=== PATIENT | female | born 1930 | race Caucasian/White ===

== ENCOUNTER 2017-08-16 12:58 | Inpatient (IN) | payer MEDICARE ==
[2017-08-16] MEDS ORDERED: Pantoprazole 40 mg EC Tab PO STA (15:13)
[2017-08-16 15:22] LABS: EOSINOPHILE ABSOLUTE 0.1 Th/cmm (0.1-0.4); HEMATOCRIT 43.2 % (41.0-60); HEMOGLOBIN 14.2 gm/dL (12-16); LYMPHOCYTE ABSOLUTE 0.4 Th/cmm (1.5-3.0); MEAN CELL VOLUME 89.6 fl (81-100); MEAN CORPUSCULAR HEMOGLOBIN 29.4 pg (27.0-31.0); MEAN CORPUSCULAR HGB CONC 32.8 pg (28.0-36.0); MEAN PLATELET VOLUME 7.9 fl; MONOCYTE ABSOLUTE 3.5 Th/cmm (0.3-1.0); NEUTROPHILE ABSOLUTE 1.7 Th/cmm (1.8-8.0); PLATELET COUNT 358 Th/cmm (150-400); RED BLOOD COUNT 4.82 Mil/cmm (3.80-5.20); RED CELL DISTRIBUTION WIDTH 14.1 % (11.5-20.0); WHITE BLOOD COUNT 5.7 Th/cmm (4.8-10.8)
[2017-08-16] MEDS ORDERED: Pantoprazole 40 mg EC Tab PO ONE (15:30)
[2017-08-16 15:59] LABS: ALB/GLOB RATIO 1.4 (1.0-1.8); ALBUMIN 4.1 gm/dL (3.7-5.3); ALKALINE PHOSPHATASE 126 U/L (34-104); ANION GAP 11.5 (7.0-16.0); BILIRUBIN,TOTAL 0.4 mg/dL (0.3-1.0); BUN - UREA NITROGEN 21 mg/dL (7-25); CALCIUM SERUM 9.4 mg/dL (8.6-10.3); CARBON DIOXIDE 27.2 mEq/L (21.0-31.0); CHLORIDE 106 mEq/L (98-107); CREATININE - SERUM 0.6 mg/dL (0.6-1.2); GLUCOSE 102 mg/dL (70-105); POTASSIUM SERUM 4.7 mEq/L (3.5-5.1); SGOT 23 U/L (13-39); SGPT/ALT 14 U/L (7-52); SODIUM SERUM 140 mEq/L (136-145)
[2017-08-16 19:45] LABS: BAND NEUTROPHILE 0 % (0-10); BASOPHIL 0 % (0-3); EOSINOPHIL 0 % (0-5); LYMPHOCYTE 32 % (20-50); MONOCYTE 5 % (2-10); NEUTROPHILS 63 % (40-80); TOTAL CELLS COUNTED 100
[2017-08-16 19:46] LABS: PLATELET ESTIMATE ADEQUATE (NORMAL); PLATELET MORPHOLOGY NORMAL (NORMAL)
[2017-08-17 03:47] VITALS: BP 142/76
[2017-08-17] MEDS: NYSTATIN 100000 UNITS/GM POWD TP SCH ×2 (13:20→21:18)
[2017-08-17] MEDS: Hydrocodone/APAP 5mg/325mg Tab PO PRN (15:01)
--- NOTE | 2017-08-17 16:48 | General Progress Note ---
Subjective - Review of Systems Service Date: 08/17/17 Events since last encounter: patient seen in ER llast night son in to visit patient Discussed with Dr. Collier - desirable to do colonoscopy prior to making surgical recommendation Objective - Results Result Diagrams: 08/16/17 15:17 08/16/17 15:17 Recent Labs: Laboratory Last Values WBC 5.7 Th/cmm (4.8-10.8) 08/16/17 15:17 RBC 4.82 Mil/cmm (3.80-5.20) 08/16/17 15:17 Hgb 14.2 gm/dL (12-16) 08/16/17 15:17 Hct 43.2 % (41.0-60) 08/16/17 15:17 MCV 89.6 fl (81-100) 08/16/17 15:17 MCH 29.4 pg (27.0-31.0) 08/16/17 15:17 MCHC Differential 32.8 pg (28.0-36.0) 08/16/17 15:17 RDW 14.1 % (11.5-20.0) 08/16/17 15:17 Plt Count 358 Th/cmm (150-400) 08/16/17 15:17 MPV 7.9 fl 08/16/17 15:17 Band Neutrophils % 0 % (0-10) 08/16/17 15:17 Neutrophils (Manual) 63 % (40-80) 08/16/17 15:17 Lymphocytes 32 % (20-50) 08/16/17 15:17 Monocytes 5 % (2-10) 08/16/17 15:17 Eosinophils 0 % (0-5) 08/16/17 15:17 Basophils 0 % (0-3) 08/16/17 15:17 Platelet Estimate ADEQUATE (NORMAL) 08/16/17 15:17 Platelet Morphology NORMAL (NORMAL) 08/16/17 15:17 RBC Morph Micro Appear NORMAL (NORMAL) 08/16/17 15:17 Sodium 140 mEq/L (136-145) 08/16/17 15:17 Potassium 4.7 mEq/L (3.5-5.1) 08/16/17 15:17 Chloride 106 mEq/L (98-107) 08/16/17 15:17 Carbon Dioxide 27.2 mEq/L (21.0-31.0) 08/16/17 15:17 Anion Gap 11.5 (7.0-16.0) 08/16/17 15:17 BUN 21 mg/dL (7-25) 08/16/17 15:17 Creatinine 0.6 mg/dL (0.6-1.2) 08/16/17 15:17 Est GFR ( Amer) TNP 08/16/17 15:17 Est GFR (Non-Af Amer) TNP 08/16/17 15:17 BUN/Creatinine Ratio 35.0 08/16/17 15:17 Glucose 102 mg/dL (70-105) 08/16/17 15:17 Calcium 9.4 mg/dL (8.6-10.3) 08/16/17 15:17 Total Bilirubin 0.4 mg/dL (0.3-1.0) 08/16/17 15:17 AST 23 U/L (13-39) 08/16/17 15:17 ALT 14 U/L (7-52) 08/16/17 15:17 Alkaline Phosphatase 126 U/L (34-104) H 08/16/17 15:17 Total Protein 7.0 gm/dL (6.0-8.3) 08/16/17 15:17 Albumin 4.1 gm/dL (3.7-5.3) 08/16/17 15:17 Globulin 2.9 gm/dL 08/16/17 15:17 Albumin/Globulin Ratio 1.4 (1.0-1.8) 08/16/17 15:17 - Physical Exam Vitals and I&O: Vital Signs Temp 97.9 F 08/17/17 16:00 Pulse 54 08/17/17 16:00 Resp 17 08/17/17 16:00 BP 154/73 08/17/17 16:00 Pulse Ox 95 08/17/17 16:00 Intake & Output 08/16/17 08/17/17 08/17/17 18:59 06:59 18:59 Weight (lbs) 46.04 kg Active Medications: Current Medications Acetaminophen/Hydrocodone Bitart ([place] 5mg/325mg) 1 tab PO Q6H PRN PRN Reason: Pain (Moderate) Stop: 10/16/17 13:29 Bisacodyl (Dulcolax 5 Mg Ec Tab) 15 mg PO X1 ONE Stop: 08/17/17 18:01 Docusate Sodium (Colace) 100 mg PO Q12HR [facility] Stop: 10/16/17 11:29 Last Admin: 08/17/17 11:43 Dose: 100 mg Dextrose/Sodium Chloride (D5-0.45ns) 1,000 mls @ 50 mls/hr IV .Q20H [facility] Stop: 10/15/17 18:14 Nystatin (Nystop) 100,000 units TP Q12HR [facility] Stop: 08/24/17 11:59 Last Admin: 08/17/17 13:20 Dose: 100,000 units Pneumococcal Polyvalent Vaccine (Pneumovax) 0.5 ml IM .ONCE ONE Stop: 08/19/17 09:01 Polyethylene Glycol/Electrolytes (Golytely) 4,000 ml PO X1 ONE Stop: 08/17/17 18:01
[2017-08-17] MEDS: D5-0.45NS 1,000 ML IV SCH (18:30)
--- NOTE | 2017-08-17 19:15 | History and Physical ---
History of Present Illness - HPI Chief Complaint: rectal pain/rectal prolapse HPI: This is a 87 year old male who presented to the ER with rectal pain x1 week. Denied any fever, diarrhea. Vital Signs: Last Vital Signs Temp 97.9 F 08/17/17 16:00 Pulse 54 08/17/17 16:00 Resp 17 08/17/17 16:00 BP 154/73 08/17/17 16:00 Pulse Ox 95 08/17/17 16:00 Past Medical History Cardiovascular: Report: No Pertinent Hx Pulmonary: Report: No Pertinent Hx [employer]: Report: No Pertinent Hx Renal/: Report: No Pertinent Hx Family Medical History - Family Member Mother History Unknown: Yes Social History Smoke: No Alcohol: None Drugs: None Lives: With Family - Medications Home Medications: Home Medication Medication Instructions Recorded Type NK [No Home Meds] 08/16/17 History - Allergies Allergies/Adverse Reactions: Allergies Allergy/AdvReac Type Severity Reaction Status Date / Time No Known Allergies Allergy Verified 08/16/17 17:38 Review of Systems - Review of Systems Constitutional: Report: No Significant Eyes: Report: No Significant ENT: Report: No Significant Respiratory: Report: No Significant Cardiovascular: Report: No Significant Gastrointestinal: Report: Other (rectal pain) Neurological: Report: Weakness Physical Exam - Physical Exam HEENT: Report: Ears Nose Throat within normal limits Neck: Report: Within normal limits Cardiovascular Systems: Report: +s1/s2 noted Respiratory: Report: Breath Sounds are within normal limits Abdomen: Report: Non-tender to palpation Back: Report: Inspection of back is within normal limits. Extremities: Report: Non-tender to palpation. Skin: Report: Warm, Dry Neuro/Psych: Report: Mood affect is within normal limits - Assessment Assessment: rectal pain rectal prolapse - Plan Plan: gi consultation surgical consultation pain mgmt continue current orders
--- NOTE | 2017-08-18 00:52 | Consultation ---
DATE OF CONSULTATION: 08/17/2017 CONSULTING PHYSICIAN: Zen Patino MD REASON FOR CONSULTATION: Rectal prolapse. HISTORY OF PRESENT ILLNESS: The patient is an 87-year-old female who reports no chronic medical illnesses who was admitted to the hospital after suffering intermittent rectal prolapse for the past 9 months. The patient notes that she first noticed that she had rectal prolapse about 9 months ago, but that for most of the previous 9 months her rectal prolapse was not painful and spontaneously resolved. She noted that her rectum would be coming out mostly with straining for having bowel movements. However, over the past several months she noted that she started to have increasing pain in her perianal area and that the rectal prolapse was becoming harder to spontaneously resolve. She was advised by family members to come into the Emergency Room for this yesterday and thus was seen in the ER by Dr. Valencia who reduced the prolapse at that time. GI is now asked for evaluation. Of note, the patient has had recent hip surgery last year on the right side and reports that she had her left hips replaced as well more remotely. PAST MEDICAL HISTORY: The patient denies any chronic illnesses and that she does not take any chronic medications. PAST SURGICAL HISTORY: The patient has had recent hip replacement. She also reports a small-bowel obstruction with surgical repair about 12 years ago and a remote appendectomy. FAMILY HISTORY: Noncontributory. SOCIAL HISTORY: The patient drinks a glass of wine every night. She quit smoking at age 26. No other illicit drugs. ENDOSCOPIC HISTORY: The patient reports that she thinks she had a colonoscopy previously, estimates that this was 3-4 years ago, but cannot remember specifically at this time. REVIEW OF SYSTEMS: A 12-point review of systems was performed and is negative other than the pertinent positives mentioned in the history of present illness. Specifically, the patient denies any melena, hematochezia or hematemesis. CURRENT MEDICATIONS: Include Colace, nystatin cream around the perianal area and Pneumovax vaccine. PHYSICAL EXAMINATION: VITAL SIGNS: The blood pressure is 182/72, pulse of 52 beats per minute, temperature 98.2, respiratory rate 17 and oxygenation is 100% on room air. GENERAL: The patient is sitting upright in bed. She is alert and oriented x 3, in no apparent distress. HEAD, EARS, EYES, NOSE AND THROAT: Normocephalic and atraumatic appearing head. No scleral icterus. Pupils are equal and reactive to light. Extraocular muscles are intact with moist mucous membranes. NECK: Supple, no JVD, no thyromegaly and no lymphadenopathy. CHEST: Clear to auscultation bilaterally. CARDIOVASCULAR: S1, S2 are present, regular rate and rhythm. ABDOMEN: Soft, nontender, thin, no guarding, no rebound and no distention. EXTREMITIES: Frail appearing. No edema. Pulses are present. PERIANAL: Exam shows erythema with a zinc barrier ointment applied. No prolapse at the moment. SKIN: No obvious jaundice or other rashes. LABORATORY DATA: White blood cell count 5.7, hemoglobin is 14.2 and platelet count is 358. Sodium 140, BUN 21, creatinine 0.6, AST 23, ALT 14, total bilirubin 0.4. There has been no imaging performed. IMPRESSION: This is an 87-year-old female who reports no chronic medical illnesses, although she has had small-bowel obstruction in the past who was admitted to the hospital with rectal prolapse and perianal pain. 1. Rectal prolapse. 2. Perianal pain and erythema. 3. History of small-bowel obstruction. DISCUSSION: The patient's rectal prolapse was reduced in the ER by Dr. Valencia although it is likely to recur without permanent surgical correction. This type of surgery must be performed by a surgeon and is not endoscopically repairable. The patient does report having a colonoscopy in the past and thinks this was in the past 5 years and that she is unlikely to have a malignancy in this area. The most common cause of rectal prolapse in a woman of this age is likely previous childbirth or previous surgery. She does not have any anemia at the current time or any sign of overt GI bleeding. Thus, I do not feel a colonoscopy would be beneficial unless it is required for surgical planning. RECOMMENDATION: 1. The son will hopefully be able to let us know when the patient had her last colonoscopy done; however, at her age screening colonoscopy is generally not recommended without any evidence of red flag system or GI bleeding. 2. If colonoscopy is requested by Dr. Valencia for surgical planning purposes then may consider this, although she does have a higher risk profile for anesthesia given her age. I will continue to follow the patient. Thank you for allowing me to participate in her care. Please call with any further questions. JOB# [id number]
[2017-08-18 07:03] LABS: INR 0.99 (0.5-1.4); PROTHROMBIN TIME (TEST) 10.3 SECONDS (9.5-11.5)
--- NOTE | 2017-08-18 08:15 | Diagnostic Imaging Report ---
Chest x-ray single view History: Preop Comparison: None The heart size is normal. No focal pulmonary parenchymal processes. No hilar or mediastinal abnormalities. Bilateral breast implants identified. The aortic arch calcified. Impression: No acute abnormalities, COPD changes.
[2017-08-18] MEDS: NYSTATIN 100000 UNITS/GM POWD TP SCH ×2 (09:09→22:00)
--- NOTE | 2017-08-18 09:55 | General Progress Note ---
Subjective - Review of Systems Events since last encounter: patient in no distress awake alert Objective - Results Result Diagrams: 08/16/17 15:17 08/16/17 15:17 Recent Labs: Laboratory Last Values WBC 5.7 Th/cmm (4.8-10.8) 08/16/17 15:17 RBC 4.82 Mil/cmm (3.80-5.20) 08/16/17 15:17 Hgb 14.2 gm/dL (12-16) 08/16/17 15:17 Hct 43.2 % (41.0-60) 08/16/17 15:17 MCV 89.6 fl (81-100) 08/16/17 15:17 MCH 29.4 pg (27.0-31.0) 08/16/17 15: MCHC Differential 32.8 pg (28.0-36.0) 08/16/17 15:17 RDW 14.1 % (11.5-20.0) 08/16/17 15:17 Plt Count 358 Th/cmm (150-400) 08/16/17 15:17 MPV 7.9 fl 08/16/17 15:17 Band Neutrophils % 0 % (0-10) 08/16/17 15:17 Neutrophils (Manual) 63 % (40-80) 08/16/17 15:17 Lymphocytes 32 % (20-50) 08/16/17 15:17 Monocytes 5 % (2-10) 08/16/17 15:17 Eosinophils 0 % (0-5) 08/16/17 15:17 Basophils 0 % (0-3) 08/16/17 15:17 Platelet Estimate ADEQUATE (NORMAL) 08/16/17 15:17 Platelet Morphology NORMAL (NORMAL) 08/16/17 15:17 RBC Morph Micro Appear NORMAL (NORMAL) 08/16/17 15:17 PT 10.3 SECONDS (9.5-11.5) 08/18/17 06:45 INR 0.99 (0.5-1.4) 08/18/17 06:45 PTT (Actin FS) 25.9 SECONDS (26.0-38.0) L 08/18/17 06:45 Sodium 140 mEq/L (136-145) 08/16/17 15:17 Potassium 4.7 mEq/L (3.5-5.1) 08/16/17 15:17 Chloride 106 mEq/L (98-107) 08/16/17 15:17 Carbon Dioxide 27.2 mEq/L (21.0-31.0) 08/16/17 15:17 Anion Gap 11.5 (7.0-16.0) 08/16/17 15:17 BUN 21 mg/dL (7-25) 08/16/17 15:17 Creatinine 0.6 mg/dL (0.6-1.2) 08/16/17 15:17 Est GFR ( Amer) TNP 08/16/17 15:17 Est GFR (Non-Af Amer) TNP 08/16/17 15:17 BUN/Creatinine Ratio 35.0 08/16/17 15:17 Glucose 102 mg/dL (70-105) 08/16/17 15:17 POC Glucose 89 MG/DL (70 - 105) 08/18/17 07:59 Calcium 9.4 mg/dL (8.6-10.3) 08/16/17 15:17 Total Bilirubin 0.4 mg/dL (0.3-1.0) 08/16/17 15:17 AST 23 U/L (13-39) 08/16/17 15:17 ALT 14 U/L (7-52) 08/16/17 15:17 Alkaline Phosphatase 126 U/L (34-104) H 08/16/17 15:17 Total Protein 7.0 gm/dL (6.0-8.3) 08/16/17 15:17 Albumin 4.1 gm/dL (3.7-5.3) 08/16/17 15:17 Globulin 2.9 gm/dL 08/16/17 15:17 Albumin/Globulin Ratio 1.4 (1.0-1.8) 08/16/17 15:17 - Physical Exam Vitals and I&O: Vital Signs Temp 97.0 F 08/18/17 08:12 Pulse 64 08/18/17 08:12 Resp 18 08/18/17 08:12 BP 165/65 08/18/17 08:12 Pulse Ox 100 08/18/17 08:12 Intake & Output 08/17/17 08/18/17 08/18/17 18:59 06:59 18:59 Intake Total 720 1000 Balance 720 1000 Weight (lbs) 46.04 kg 45.813 kg Intake: Oral 720 1000 Other: # Voids 10 6 # Bowel Movements 0 3 Active Medications: Current Medications Acetaminophen/Hydrocodone Bitart ([place] 5mg/325mg) 1 tab PO Q6H PRN PRN Reason: Pain (Moderate) Stop: 10/16/17 13:29 Docusate Sodium (Colace) 100 mg PO Q12HR [facility] Stop: 10/16/17 11:29 Last Admin: 08/18/17 09:08 Dose: Not Given Dextrose/Sodium Chloride (D5-0.45ns) 1,000 mls @ 50 mls/hr IV .Q20H [facility] Stop: 10/15/17 18:14 Last Admin: 08/17/17 18:30 Dose: 50 mls/hr Nystatin (Nystop) 100,000 units TP Q12HR [facility] Stop: 08/24/17 11:59 Last Admin: 08/18/17 09:09 Dose: Not Given Pneumococcal Polyvalent Vaccine (Pneumovax) 0.5 ml IM .ONCE ONE Stop: 08/19/17 09:01 Assessment/Plan - Assessment Assessment: rectal pain rectal prolapse - Plan Plan: gi consultation surgical consultation pain mgmt continue current orders
--- NOTE | 2017-08-18 10:02 | General Progress Note ---
Subjective - Review of Systems Service Date: 08/18/17 Events since last encounter: has redundant sigmoid with diverticulosis on sigmoidoscopy discussed options with son via phone Plan: surgery in AM with colon resection and diverting colostomy will need medical clearance Objective - Results Result Diagrams: 08/16/17 15:17 08/16/17 15:17 Recent Labs: Laboratory Last Values WBC 5.7 Th/cmm (4.8-10.8) 08/16/17 15:17 RBC 4.82 Mil/cmm (3.80-5.20) 08/16/17 15:17 Hgb 14.2 gm/dL (12-16) 08/16/17 15:17 Hct 43.2 % (41.0-60) 08/16/17 15:17 MCV 89.6 fl (81-100) 08/16/17 15:17 MCH 29.4 pg (27.0-31.0) 08/16/17 15:17 MCHC Differential 32.8 pg (28.0-36.0) 08/16/17 15:17 RDW 14.1 % (11.5-20.0) 08/16/17 15:17 Plt Count 358 Th/cmm (150-400) 08/16/17 15:17 MPV 7.9 fl 08/16/17 15:17 Band Neutrophils % 0 % (0-10) 08/16/17 15:17 Neutrophils (Manual) 63 % (40-80) 08/16/17 15:17 Lymphocytes 32 % (20-50) 08/16/17 15:17 Monocytes 5 % (2-10) 08/16/17 15:17 Eosinophils 0 % (0-5) 08/16/17 15:17 Basophils 0 % (0-3) 08/16/17 15:17 Platelet Estimate ADEQUATE (NORMAL) 08/16/17 15:17 Platelet Morphology NORMAL (NORMAL) 08/16/17 15:17 RBC Morph Micro Appear NORMAL (NORMAL) 08/16/17 15:17 PT 10.3 SECONDS (9.5-11.5) 08/18/17 06:45 INR 0.99 (0.5-1.4) 08/18/17 06:45 PTT (Actin FS) 25.9 SECONDS (26.0-38.0) L 08/18/17 06:45 Sodium 140 mEq/L (136-145) 08/16/17 15:17 Potassium 4.7 mEq/L (3.5-5.1) 08/16/17 15:17 Chloride 106 mEq/L (98-107) 08/16/17 15:17 Carbon Dioxide 27.2 mEq/L (21.0-31.0) 08/16/17 15:17 Anion Gap 11.5 (7.0-16.0) 08/16/17 15:17 BUN 21 mg/dL (7-25) 08/16/17 15:17 Creatinine 0.6 mg/dL (0.6-1.2) 08/16/17 15:17 Est GFR ( Amer) TNP 08/16/17 15:17 Est GFR (Non-Af Amer) TNP 08/16/17 15:17 BUN/Creatinine Ratio 35.0 08/16/17 15:17 Glucose 102 mg/dL (70-105) 08/16/17 15:17 POC Glucose 89 MG/DL (70 - 105) 08/18/17 07:59 Calcium 9.4 mg/dL (8.6-10.3) 08/16/17 15:17 Total Bilirubin 0.4 mg/dL (0.3-1.0) 08/16/17 15:17 AST 23 U/L (13-39) 08/16/17 15:17 ALT 14 U/L (7-52) 08/16/17 15:17 Alkaline Phosphatase 126 U/L (34-104) H 08/16/17 15:17 Total Protein 7.0 gm/dL (6.0-8.3) 08/16/17 15:17 Albumin 4.1 gm/dL (3.7-5.3) 08/16/17 15:17 Globulin 2.9 gm/dL 08/16/17 15:17 Albumin/Globulin Ratio 1.4 (1.0-1.8) 08/16/17 15:17 - Physical Exam Vitals and I&O: Vital Signs Temp 97.0 F 08/18/17 08:12 Pulse 64 08/18/17 08:12 Resp 18 08/18/17 08:12 BP 165/65 08/18/17 08:12 Pulse Ox 100 01/24/18 08:12 Intake & Output 08/17/17 08/18/17 08/18/17 18:59 06:59 18:59 Intake Total 720 1000 Balance 720 1000 Weight (lbs) 46.04 kg 45.813 kg Intake: Oral 720 1000 Other: # Voids 10 6 # Bowel Movements 0 3 Active Medications: Current Medications Acetaminophen/Hydrocodone Bitart ([place] 5mg/325mg) 1 tab PO Q6H PRN PRN Reason: Pain (Moderate) Stop: 10/16/17 13:29 Docusate Sodium (Colace) 100 mg PO Q12HR [facility] Stop: 10/16/17 11:29 Last Admin: 08/18/17 09:08 Dose: Not Given Dextrose/Sodium Chloride (D5-0.45ns) 1,000 mls @ 50 mls/hr IV .Q20H [facility] Stop: 10/15/17 18:14 Last Admin: 08/17/17 18:30 Dose: 50 mls/hr Nystatin (Nystop) 100,000 units TP Q12HR [facility] Stop: 08/24/17 11:59 Last Admin: 08/18/17 09:09 Dose: Not Given Pneumococcal Polyvalent Vaccine (Pneumovax) 0.5 ml IM .ONCE ONE Stop: 08/19/17 09:01
--- NOTE | 2017-08-18 10:55 | Consultation ---
DATE OF CONSULTATION: 08/17/2017 REFERRING PHYSICIAN: Dr. Patino. REASON FOR CONSULTATION: Rectal prolapse. Thank you for referring this patient to me. HISTORY OF PRESENT ILLNESS: An 87-year-old female who lives alone at home. She admits to having had rectal prolapse that she could not push in for most of the month. The son informs us she has pain with this. The prolapse has been recurrent for the last 9 months. She has no previous history of diverticulitis. She denies any urinary symptoms, likewise. The laboratory studies show CBC to be normal as well as the chemistry. PHYSICAL EXAMINATION: GENERAL: On exam in the Emergency Room, the patient is alert and awake. The ER physician had reduced the prolapse by the time I examined her and there is some cellulitis in the perineum and the upper thighs as a result of the chronic prolapse. GI evaluation is in progress. I have talked extensively to the son about the possible treatment of this condition. Colonoscopy will be done and if there is additional problems this will be addressed. Concern is for redundant colon and the patient with constipation and incontinence. [place] treatment would be rather radical which would include resection of areas of diverticulosis and areas of redundancy to pull up the rectosigmoid and anchor it to the sacral fascia and do a diverting colostomy. The family will discuss this with the patient and will go on from there. [facility]# [id number]
--- NOTE | 2017-08-18 11:17 | Operative Report ---
DATE OF SURGERY: 08/18/2017 INPATIENT COLONOSCOPY REPORT PROCEDURE PERFORMED: Colonoscopy with biopsy. ENDOSCOPIST: Marv Collier M.D. PREOPERATIVE DIAGNOSIS: Rectal prolapse. POSTOPERATIVE DIAGNOSES: Colonic polyps, diverticulosis and rectal prolapse. INDICATION: The patient is an 87-year-old female who reports she has had issues with intermittent rectal prolapse over the past 9 months and has been getting progressively worse. She notes that she thinks she has had a colonoscopy before, but thinks it may have been 5 or 6 years ago and cannot remember if she has ever had polyps before. She is thinking of having rectal prolapse repair with Dr. Valencia but a colonoscopy is requested for surgical planning purposes. CONSENT: Informed consent was obtained from the patient. The risks and benefits of the procedure were discussed and include but are not limited to infection, bleeding, perforation, need for surgery, cardiopulmonary complications, missed pathology and . The patient indicates understanding of these risks and wished to go forward the procedure and signed the consent form. ANESTHESIA: This procedure was performed under the care of general anesthesia under the care of anesthesiologist. PROCEDURE IN DETAIL: After the initiation of general anesthesia the patient was placed in the left lateral decubitus position. A rectal exam was performed and it was notable for prolapsed rectum that was prolapsed about 4 cm at this time. The rectum was reducible and there was no evidence of any bleeding. Next, a well lubricated colonoscope was introduced into the rectum and guided under direct visualization to the level of the cecum, which was confirmed by the presence of the appendiceal orifice and IC valve, which were photographed. The scope was then slowly and carefully withdrawn, making sure to examine the entire colonic mucosa carefully and systematically. Retroflexion was not able to be performed given the prolapse. FINDINGS: 1. The [place] bowel prep score was 2 in all segments of the colon, there were some segments of the colon, especially in the flexures that were obscured by solid stool. 2. Cecal polyps were found measuring 2-5 mm in size and removed with cold biopsy forceps using excisional biopsy technique. In the transverse colon, an additional 3 mm polyp was found and removed with excisional biopsy. In the rectum, there were 2 polyps that were found that were measured 3-5 mm in size and removed with excisional biopsy. Additionally, there was mild to moderate diverticulosis throughout the colon, although mostly concentrated in the sigmoid and descending areas nonbleeding at this time. The colon was mildly redundant, although the scope was able to be completed without much looping. IMPRESSION: 1. Rectal prolapse. 2. Colonic polyp, status post removal. 3. Diverticulosis, mild mostly in the sigmoid and descending colon. RECOMMENDATION: 1. The patient will consider and proceed to rectal prolapse repair with Dr. Valencia if desired. 2. Do not recommend further screening colonoscopy given the patient's age. Thank you for allowing me to participate in this patient's care. I will continue to follow. Please call with any further questions. JOB# [id number]
[2017-08-18] MEDS: D5-0.45NS 1,000 ML IV SCH (19:23)
[2017-08-19 05:53] LABS: % BASOPHILS 1.9 % (0.0-2.0); % EOSINOPHILS 3.4 % (0.0-5.0); % LYMPHOCYTES 27.1 % (20.0-50.0); % MONOCYTES 7.3 % (2.0-10.0); % NEUTROPHILS 60.3 % (40.0-80.0); BASOPHILE ABSOLUTE 0.1 Th/cumm (0-0.2); EOSINOPHILE ABSOLUTE 0.2 Th/cmm (0.1-0.4); HEMATOCRIT 39.9 % (41.0-60); HEMOGLOBIN 13.2 gm/dL (12-16); LYMPHOCYTE ABSOLUTE 1.5 Th/cmm (1.5-3.0); MEAN CELL VOLUME 89.2 fl (81-100); MEAN CORPUSCULAR HEMOGLOBIN 29.6 pg (27.0-31.0); MEAN CORPUSCULAR HGB CONC 33.2 pg (28.0-36.0); MEAN PLATELET VOLUME 8.2 fl; MONOCYTE ABSOLUTE 0.4 Th/cmm (0.3-1.0); NEUTROPHILE ABSOLUTE 3.4 Th/cmm (1.8-8.0); RED BLOOD COUNT 4.47 Mil/cmm (3.80-5.20); WHITE BLOOD COUNT 5.6 Th/cmm (4.8-10.8)
[2017-08-19 05:54] LABS: PLATELET COUNT 266 Th/cmm (150-400)
[2017-08-19 06:12] LABS: INR 1.02 (0.5-1.4); PROTHROMBIN TIME (TEST) 10.6 SECONDS (9.5-11.5)
[2017-08-19 06:15] LABS: ALB/GLOB RATIO 1.3 (1.0-1.8); ALBUMIN 3.3 gm/dL (3.7-5.3); ALKALINE PHOSPHATASE 98 U/L (34-104); ANION GAP 5.6 (7.0-16.0); BILIRUBIN,TOTAL 0.5 mg/dL (0.3-1.0); BUN - UREA NITROGEN 13 mg/dL (7-25); CALCIUM SERUM 8.7 mg/dL (8.6-10.3); CARBON DIOXIDE 30.5 mEq/L (21.0-31.0); CHLORIDE 103 mEq/L (98-107); CREATININE - SERUM 0.6 mg/dL (0.6-1.2); GLUCOSE 98 mg/dL (70-105); POTASSIUM SERUM 4.1 mEq/L (3.5-5.1); SGOT 18 U/L (13-39); SGPT/ALT 12 U/L (7-52); SODIUM SERUM 135 mEq/L (136-145); TOTAL PROTEIN,SERUM 5.9 gm/dL (6.0-8.3)
[2017-08-19] MEDS: Levofloxacin 250 mg/50 mL Premix Bag IV SCH (08:12)
[2017-08-19] MEDS: NYSTATIN 100000 UNITS/GM POWD TP SCH ×2 (08:14→22:11)
--- NOTE | 2017-08-19 08:27 | GI Progress Note ---
Subjective - Review of Systems Service Date: 08/19/17 Subjective: No events overnight, feels well Objective - Results Result Diagrams: 08/19/17 05:37 08/19/17 05:37 Recent Labs: Laboratory Last Values WBC 5.6 Th/cmm (4.8-10.8) 08/19/17 05:37 RBC 4.47 Mil/cmm (3.80-5.20) 08/19/17 05:37 Hgb 13.2 gm/dL (12-16) 08/19/17 05:37 Hct 39.9 % (41.0-60) L 08/19/17 05:37 MCV 89.2 fl (81-100) 08/19/17 05:37 MCH 29.6 pg (27.0-31.0) 08/19/17 05:37 MCHC Differential 33.2 pg (28.0-36.0) 08/19/17 05:37 RDW 14.0 % (11.5-20.0) 08/19/17 05:37 Plt Count 266 Th/cmm (150-400) D 08/19/17 05:37 MPV 8.2 fl 08/19/17 05:37 Neutrophils % 60.3 % (40.0-80.0) 08/19/17 05:37 Band Neutrophils % 0 % (0-10) 08/16/17 15:17 Lymphocytes % 27.1 % (20.0-50.0) 08/19/17 05:37 Monocytes % 7.3 % (2.0-10.0) 08/19/17 05:37 Eosinophils % 3.4 % (0.0-5.0) 08/19/17 05:37 Basophils % 1.9 % (0.0-2.0) 08/19/17 05:37 Neutrophils (Manual) 63 % (40-80) 08/16/17 15:17 Lymphocytes 32 % (20-50) 08/16/17 15:17 Monocytes 5 % (2-10) 08/16/17 15:17 Eosinophils 0 % (0-5) 08/16/17 15:17 Basophils 0 % (0-3) 08/16/17 15:17 Platelet Estimate ADEQUATE (NORMAL) 08/16/17 15:17 Platelet Morphology NORMAL (NORMAL) 08/16/17 15:17 RBC Morph Micro Appear NORMAL (NORMAL) 08/16/17 15:17 PT 10.6 SECONDS (9.5-11.5) 08/19/17 05:37 INR 1.02 (0.5-1.4) 08/19/17 05:37 PTT (Actin FS) 25.9 SECONDS (26.0-38.0) L 08/19/17 05:37 Sodium 135 mEq/L (136-145) L 08/19/17 05:37 Potassium 4.1 mEq/L (3.5-5.1) 08/19/17 05:37 Chloride 103 mEq/L (98-107) 08/19/17 05:37 Carbon Dioxide 30.5 mEq/L (21.0-31.0) 08/19/17 05:37 Anion Gap 5.6 (7.0-16.0) L 08/19/17 05:37 BUN 13 mg/dL (7-25) 08/19/17 05:37 Creatinine 0.6 mg/dL (0.6-1.2) 08/19/17 05:37 Est GFR ( Amer) TNP 08/19/17 05:37 Est GFR (Non-Af Amer) TNP 08/19/17 05:37 BUN/Creatinine Ratio 21.7 08/19/17 05:37 Glucose 98 mg/dL (70-105) 08/19/17 05:37 POC Glucose 89 MG/DL (70 - 105) 08/18/17 07:59 Calcium 8.7 mg/dL (8.6-10.3) 08/19/17 05:37 Total Bilirubin 0.5 mg/dL (0.3-1.0) 08/19/17 05:37 AST 18 U/L (13-39) 08/19/17 05:37 ALT 12 U/L (7-52) 08/19/17 05:37 Alkaline Phosphatase 98 U/L (34-104) 08/19/17 05:37 Total Protein 5.9 gm/dL (6.0-8.3) L 08/19/17 05:37 Albumin 3.3 gm/dL (3.7-5.3) L 08/19/17 05:37 Globulin 2.6 gm/dL 08/19/17 05:37 Albumin/Globulin Ratio 1.3 (1.0-1.8) 08/19/17 05:37 - Physical Exam Vitals and I&O: Vital Signs Temp 96.8 F 08/19/17 03:45 Pulse 48 08/19/17 03:45 Resp 17 08/19/17 03:45 BP 132/67 08/19/17 03:45 Pulse Ox 96 08/19/17 03:45 Intake & Output 08/18/17 08/19/17 08/19/17 18:59 06:59 18:59 Intake Total 1999 Balance 1999 Weight (lbs) 45.813 kg 45.813 kg Intake: Intake, IV Amount 1000 D5-0.45NS 1,000 ml @ 50 1000 mls/hr IV .Q20H [facility] Rx#: [id number] Oral 1000 Other: # Voids 7 # Bowel Movements 1 Stool Characteristics Liquid Active Medications: Current Medications Acetaminophen/Hydrocodone Bitart ([place] 5mg/325mg) 1 tab PO Q6H PRN PRN Reason: Pain (Moderate) Stop: 10/16/17 13:29 Docusate Sodium (Colace) 100 mg PO Q12HR [facility] Stop: 10/16/17 11:29 Last Admin: 08/19/17 08:18 Dose: Not Given Dextrose/Sodium Chloride (D5-0.45ns) 1,000 mls @ 50 mls/hr IV .Q20H [facility] Stop: 10/15/17 18:14 Last Admin: 08/18/17 19:23 Dose: 50 mls/hr Levofloxacin (Levaquin Pb) 250 mg in 50 mls @ 50 mls/hr IV Q24HR [facility] Stop: 10/18/17 08:59 Last Admin: 08/19/17 08:12 Dose: 50 mls/hr Neomycin Sulfate (Neomycin) 500 mg PO Q6H [facility] Stop: 10/17/17 16:59 Last Admin: 08/19/17 05:20 Dose: Not Given Nystatin (Nystop) 100,000 units TP Q12HR [facility] Stop: 08/24/17 11:59 Last Admin: 08/19/17 08:14 Dose: 100,000 units Pneumococcal Polyvalent Vaccine (Pneumovax) 0.5 ml IM .ONCE ONE Stop: 08/19/17 09:01 General: Alert, Oriented x3 HEENT: Atraumatic, PERRLA Neck: Supple Cardiovascular: Regular rate Abdomen: Bowel sounds, Soft, Other (no guard, no rebound, no distension. Rectal prolapse noted) - Procedures Procedures: Procedures Procedure Code Date COLONOSCOPY AND BIOPSY 45556 08/16/17 EXCISION OF CECUM, ENDO, DIAGN [id number] 08/16/17 EXCISION OF RECTUM, ENDO, DIAGN [id number] 08/16/17 EXCISION OF TRANSVERSE COLON, ENDO, DIAGN [id number] 08/16/17 Assessment/Plan - Assessment Assessment: # Rectal prolapse # Colon polyps # Perianal Skin breakdown Colonoscopy on 08/18 showed small colonic polyps, which were removed. Rectal prolapse was observed, reducible. Mild diverticulosis also noted Recommendations: - proceed with prolapse repair with Dr Valencia - do not recommend further screening colonoscopy given her age - skin care with zinc based cream and anti fungal GI to see as needed, please call with any questions
[2017-08-19] MEDS ORDERED: Pneumococcal Vaccine 0.5 mL Vial IM ONE (09:00)
[2017-08-19] MEDS ORDERED: Levofloxacin 500mg/100mL 500 MG/100 ML BAG IV SCH (09:00)
--- NOTE | 2017-08-19 09:14 | General Progress Note ---
Subjective - Review of Systems Events since last encounter: patient awake in no distress doing ok Objective - Results Result Diagrams: 08/19/17 05:37 08/19/17 05:37 Recent Labs: Laboratory Last Values WBC 5.6 Th/cmm (4.8-10.8) 08/19/17 05:37 RBC 4.47 Mil/cmm (3.80-5.20) 08/19/17 05:37 Hgb 13.2 gm/dL (12-16) 08/19/17 05:37 Hct 39.9 % (41.0-60) L 08/19/17 05:37 MCV 89.2 fl (81-100) 08/19/17 05:37 MCH 29.6 pg (27.0-31.0) 08/19/17 05:37 MCHC Differential 33.2 pg (28.0-36.0) 08/19/17 05:37 RDW 14.0 % (11.5-20.0) 08/19/17 05:37 Plt Count 266 Th/cmm (150-400) D 08/19/17 05:37 MPV 8.2 fl 08/19/17 05:37 Neutrophils % 60.3 % (40.0-80.0) 08/19/17 05:37 Band Neutrophils % 0 % (0-10) 08/16/17 15: Lymphocytes % 27.1 % (20.0-50.0) 08/19/17 05:37 Monocytes % 7.3 % (2.0-10.0) 08/19/17 05:37 Eosinophils % 3.4 % (0.0-5.0) 08/19/17 05:37 Basophils % 1.9 % (0.0-2.0) 08/19/17 05:37 Neutrophils (Manual) 63 % (40-80) 08/16/17 15:17 Lymphocytes 32 % (20-50) 08/16/17 15:17 Monocytes 5 % (2-10) 08/16/17 15:17 Eosinophils 0 % (0-5) 08/16/17 15:17 Basophils 0 % (0-3) 08/16/17 15:17 Platelet Estimate ADEQUATE (NORMAL) 08/16/17 15:17 Platelet Morphology NORMAL (NORMAL) 08/16/17 15:17 RBC Morph Micro Appear NORMAL (NORMAL) 08/16/17 15:17 PT 10.6 SECONDS (9.5-11.5) 08/19/17 05:37 INR 1.02 (0.5-1.4) 08/19/17 05:37 PTT (Actin FS) 25.9 SECONDS (26.0-38.0) L 08/19/17 05:37 Sodium 135 mEq/L (136-145) L 08/19/17 05:37 Potassium 4.1 mEq/L (3.5-5.1) 08/19/17 05:37 Chloride 103 mEq/L (98-107) 08/19/17 05:37 Carbon Dioxide 30.5 mEq/L (21.0-31.0) 08/19/17 05:37 Anion Gap 5.6 (7.0-16.0) L 08/19/17 05:37 BUN 13 mg/dL (7-25) 08/19/17 05:37 Creatinine 0.6 mg/dL (0.6-1.2) 08/19/17 05:37 Est GFR ( Amer) TNP 08/19/17 05:37 Est GFR (Non-Af Amer) TNP 08/19/17 05:37 BUN/Creatinine Ratio 21.7 08/19/17 05:37 Glucose 98 mg/dL (70-105) 08/19/17 05:37 POC Glucose 89 MG/DL (70 - 105) 08/18/17 07:59 Calcium 8.7 mg/dL (8.6-10.3) 08/19/17 05:37 Total Bilirubin 0.5 mg/dL (0.3-1.0) 08/19/17 05:37 AST 18 U/L (13-39) 08/19/17 05:37 ALT 12 U/L (7-52) 08/19/17 05:37 Alkaline Phosphatase 98 U/L (34-104) 08/19/17 05:37 Total Protein 5.9 gm/dL (6.0-8.3) L 08/19/17 05:37 Albumin 3.3 gm/dL (3.7-5.3) L 08/19/17 05:37 Globulin 2.6 gm/dL 08/19/17 05:37 Albumin/Globulin Ratio 1.3 (1.0-1.8) 08/19/17 05:37 - Physical Exam Vitals and I&O: Vital Signs Temp 98.4 F 08/19/17 08:00 Pulse 52 08/19/17 08:00 Resp 18 08/19/17 08:00 BP 144/57 08/19/17 08:00 Pulse Ox 95 08/19/17 08:00 Intake & Output 08/18/17 08/19/17 08/19/17 18:59 06:59 18:59 Intake Total 1999 Balance 1999 Weight (lbs) 45.813 kg 45.813 kg Intake: Intake, IV Amount 1000 D5-0.45NS 1,000 ml @ 50 1000 mls/hr IV .Q20H [facility] Rx#: [id number] Oral 1000 Other: # Voids 7 # Bowel Movements 1 Stool Characteristics Liquid Active Medications: Current Medications Acetaminophen/Hydrocodone Bitart ([place] 5mg/325mg) 1 tab PO Q6H PRN PRN Reason: Pain (Moderate) Stop: 10/16/17 13:29 Docusate Sodium (Colace) 100 mg PO Q12HR [facility] Stop: 10/16/17 11:29 Last Admin: 08/19/17 08:18 Dose: Not Given Levofloxacin (Levaquin Pb) 250 mg in 50 mls @ 50 mls/hr IV Q24HR [facility] Stop: 10/18/17 08:59 Last Admin: 08/19/17 08:12 Dose: 50 mls/hr Dextrose (D5w) 1,000 mls @ 100 mls/hr IV .Q10H [facility] Stop: 10/18/17 09:04 Neomycin Sulfate (Neomycin) 500 mg PO Q6H [facility] Stop: 10/17/17 16:59 Last Admin: 08/19/17 05:20 Dose: Not Given Nystatin (Nystop) 100,000 units TP Q12HR [facility] Stop: 08/24/17 11:59 Last Admin: 08/19/17 08:14 Dose: 100,000 units General: Alert, Oriented x3 HEENT: Atraumatic, PERRLA Neck: Supple Cardiovascular: Regular rate Abdomen: Bowel sounds, Soft, Other (no guard, no rebound, no distension. Rectal prolapse noted) - Procedures Procedures: Procedures Procedure Code Date COLONOSCOPY AND BIOPSY 54553 08/16/17 EXCISION OF CECUM, ENDO, DIAGN [id number] 08/16/17 EXCISION OF RECTUM, ENDO, DIAGN [id number] 08/16/17 EXCISION OF TRANSVERSE COLON, ENDO, DIAGN [id number] 08/16/17 Assessment/Plan - Assessment Assessment: rectal pain rectal prolapse - Plan Plan: gi consultation surgical consultation pain mgmt continue current orders
[2017-08-19] MEDS: Dextrose 5% 1,000 ML IV SCH (09:37)
--- NOTE | 2017-08-19 10:21 | Consultation ---
DATE OF CONSULTATION: 08/18/[address] Patino. HISTORY AND PHYSICAL: This is an 87-year-old female patient who had been complaining of rectal pain. The patient came to the Emergency Room, the patient was found to have a rectal prolapse. The patient had a colonoscope, which showed rectal prolapse, colon polyp, diverticulosis. At this time, the patient needs surgery and medical clearance is requested. No history of chest pain, PND, orthopnea. PAST MEDICAL HISTORY: Diverticulosis, osteoporosis, colon polyp and rectal prolapse. FAMILY HISTORY: Unremarkable. SOCIAL HISTORY: No history of smoking, alcohol abuse. ALLERGIES: None. PHYSICAL EXAMINATION: VITAL SIGNS: Blood pressure 130/80, pulse 70, respirations 20. HEAD: Normocephalic. No lumps or bumps. EYES: Pupils equal, reactive to light. Fundi show AV nicking, sclerae white, conjunctivae pink. NECK: Carotid 2+. Normal upstroke. JVD flat. Thyroid not palpable. Lymph nodes not palpable. CHEST: Shows increased AP diameter. No kyphosis, scoliosis. LUNGS: Bilateral bronchovesicular breath sounds. HEART: PMI fifth intercostal space with lateral to midclavicular line. S1, S2. No S3, S4, soft systolic murmur. ABDOMEN: Soft. Liver, spleen not palpable. No organomegaly. Bowel sounds active. RECTAL: Rectal prolapse. EXTREMITIES: Peripheral pulses 2+. No pedal edema. CLINICAL IMPRESSION: Rectal prolapse, diverticulosis, colon polyp, osteoporosis. The patient is cleared for surgery. [facility]# [id number]
[2017-08-19] MEDS ORDERED: fentaNYL Citrate 100 mcg/2mL Vial ONE (12:06)
[2017-08-19] MEDS ORDERED: Labetalol 5 mg/mL 20 mL Vial ONE ×2 (12:20→13:56)
[2017-08-19] MEDS ORDERED: HYDROmorphone 2 mg/mL 1mL Vial IVP PRN (14:05)
[2017-08-19] MEDS ORDERED: Labetalol 5 mg/mL 20 mL Vial IVP ONE (14:08)
[2017-08-19] MEDS ORDERED: Neostigmine 10mg/10mL Vial ONE ×3 (14:15)
--- NOTE | 2017-08-19 14:18 | Pathology Report ---
[id number] Collection Date: 08/18/2017 Surgeon: Dr. Nia Collier Specimen Description: 1. Cecal polyp 2. Transverse colon polyp 3. Rectal polyp Gross Description: Part I: Received in formalin are three granados soft tissue fragments, each measuring 0.1 cm in greatest dimension. Totally submitted in one cassette labeled A. Gross Description: Part II: Received in formalin is a single granados soft tissue fragment measuring 0.2 cm in greatest dimension. Totally submitted in one cassette labeled B. Gross Description: Part III: Received in formalin are two granados soft tissue fragments, each measuring 0.1 cm in greatest dimension. Totally submitted in one cassette labeled C. Microscopic Description: Part I: The histologic sections show benign colon mucosa with focal hyperplastic glandular changes present, consistent with benign hyperplastic polyp. Diagnosis: Part I: Benign hyperplastic polyp, cecum. Microscopic Description: Part II: The histologic sections show fragments of benign colon mucosa with focal adenomatous glandular changes present, consisting of nuclear enlargement and stratification with mostly tubules formed, consistent with benign tubular adenoma. Diagnosis: Part II: Benign tubular adenoma, transverse colon polyp. Microscopic Description: Part III: The histologic sections show colorectal mucosa with hyperplastic glandular changes present, consistent with benign hyperplastic polyp. Diagnosis: Part III: Benign hyperplastic polyp, rectal biopsy. [facility]# [id number]
[2017-08-19] MEDS: Sodium Chloride 0.9% 1,000 ML IV SCH (15:29)
--- NOTE | 2017-08-19 19:09 | Operative Report ---
DATE OF SURGERY: 08/19/2017 PREOPERATIVE DIAGNOSES: 1. Rectal prolapse. 2. Incontinence. 3. Redundant colon. 4. Diverticulosis. POSTOPERATIVE DIAGNOSES: 1. Rectal prolapse. 2. Incontinence. 3. Redundant colon. 4. Diverticulosis. OPERATION DONE: Exploratory laparotomy with: 1. Resection of descending colon, site of multiple diverticula. 2. Diverting colostomy. 3. Ripstein procedure. 4. Lysis of adhesions. SURGEON: Erik Everett MD COTTON BUYER: Sj Felder Jr., MD ANESTHESIA: General. ANESTHESIOLOGIST: Dimitry. ESTIMATED BLOOD LOSS: 30 mL INDICATIONS FOR SURGERY: The patient with recurrent rectal prolapse and incontinence with maceration with a premium and upper lateral thighs. OPERATIVE FINDINGS: Sigmoid colon full of diverticula and redundant. DESCRIPTION OF PROCEDURE: The patient was given general anesthesia. The abdomen was prepped with ChloraPrep and draped in appropriate manner. An incision was made through the old scar below the umbilicus. Bleeders were coagulated. The fascia was incised and dense adhesions to the anterior abdominal wall were sharply with cautery. A retractor was then applied and exploration of the abdominal cavity was made. The patient has had previous distal ileal anastomosis with some dilatation, but no obstruction. The left side of the abdominal cavity was explored with the descending colon and the sigmoid colon. There were diverticula present and these were identified. The descending colon was freed from its lateral border with the sharp and blunt dissection all the way down to the sacrum. There was a marked enlargement of the distal sigmoid and upper rectum secondary to the recurrent prolapse. The mid descending colon was transected and with an impact instrument, the mesentery was surely transected all the way up to the promontory of the sacrum. The rest of the sigmoid colon and upper rectum was then freed from its lateral attachments and its posterior attachments. This was transected at the level of the sacral promontory. Cultures were taken of the colonic inner portion. With interrupted sutures of 2-0 silk, the posterior and lateral margins of the remaining distal sigmoid and upper rectum were anchored to the sacral promontory with 3 stitches utilizing 2-0 silk. A Celio-March drain was left in the pelvis. The descending colon was brought out as a colostomy in the left lower quadrant of the abdomen. A piece of skin was resected and the fascia divided vertically. Descending colon was then brought out through this. Following satisfactory hemostasis, the incision was closed with running suture of #1 PDS and the skin was closed with subcuticular suture of 4-0 Vicryl. Dermabond and Op-Site were then applied over this. The colostomy was matured utilizing everting sutures of 4-0 Vicryl and a colostomy bag was placed over this. A Cortes catheter was placed preop and the patient will be sent to ICU for further observation. The patient tolerated the procedure well. JOB# [id number]
[2017-08-20] MEDS: Morphine Sulfate 2 mg/mL 1mL Syr IVP PRN ×3 (01:12→22:22)
[2017-08-20] MEDS: Dextrose 5% 1,000 ML IV SCH (01:21)
[2017-08-20 04:44] LABS: % BASOPHILS 2.5 % (0.0-2.0); % EOSINOPHILS 1.2 % (0.0-5.0); % LYMPHOCYTES 15.7 % (20.0-50.0); % NEUTROPHILS 74.6 % (40.0-80.0); BASOPHILE ABSOLUTE 0.2 Th/cumm (0-0.2); EOSINOPHILE ABSOLUTE 0.1 Th/cmm (0.1-0.4); HEMATOCRIT 39.3 % (41.0-60); LYMPHOCYTE ABSOLUTE 1.4 Th/cmm (1.5-3.0); MEAN CELL VOLUME 89.1 fl (81-100); MEAN CORPUSCULAR HEMOGLOBIN 29.5 pg (27.0-31.0); MEAN CORPUSCULAR HGB CONC 33.1 pg (28.0-36.0); MEAN PLATELET VOLUME 8.7 fl; MONOCYTE ABSOLUTE 0.5 Th/cmm (0.3-1.0); NEUTROPHILE ABSOLUTE 6.5 Th/cmm (1.8-8.0); PLATELET COUNT 275 Th/cmm (150-400); RED BLOOD COUNT 4.41 Mil/cmm (3.80-5.20); RED CELL DISTRIBUTION WIDTH 13.7 % (11.5-20.0)
[2017-08-20 04:57] LABS: WHITE BLOOD COUNT 8.7 Th/cmm (4.8-10.8)
[2017-08-20 05:12] LABS: ALB/GLOB RATIO 1.3 (1.0-1.8); ALKALINE PHOSPHATASE 86 U/L (34-104); ANION GAP 9.5 (7.0-16.0); BILIRUBIN,TOTAL 0.5 mg/dL (0.3-1.0); BUN - UREA NITROGEN 13 mg/dL (7-25); CALCIUM SERUM 8.1 mg/dL (8.6-10.3); CARBON DIOXIDE 24.4 mEq/L (21.0-31.0); CHLORIDE 104 mEq/L (98-107); CREATININE - SERUM 0.6 mg/dL (0.6-1.2); GLUCOSE 125 mg/dL (70-105); POTASSIUM SERUM 3.9 mEq/L (3.5-5.1); SGOT 17 U/L (13-39); SGPT/ALT 12 U/L (7-52); SODIUM SERUM 134 mEq/L (136-145); TOTAL PROTEIN,SERUM 5.3 gm/dL (6.0-8.3)
--- NOTE | 2017-08-20 08:00 | General Progress Note ---
Subjective - Review of Systems Service Date: 08/20/17 Events since last encounter: patient alert and awake tolerating liquids incision check, ostomy with liquid output no prolapse full liquids Objective - Results Result Diagrams: 08/20/17 04:20 08/20/17 04:20 Recent Labs: Laboratory Last Values WBC 8.7 Th/cmm (4.8-10.8) D 08/20/17 04:20 RBC 4.41 Mil/cmm (3.80-5.20) 08/20/17 04:20 Hgb 13.0 gm/dL (12-16) 08/20/17 04:20 Hct 39.3 % (41.0-60) L 08/20/17 04:20 MCV 89.1 fl (81-100) 08/20/17 04:20 MCH 29.5 pg (27.0-31.0) 08/20/17 04:20 MCHC Differential 33.1 pg (28.0-36.0) 08/20/17 04:20 RDW 13.7 % (11.5-20.0) 08/20/17 04:20 Plt Count 275 Th/cmm (150-400) 08/20/17 04:20 MPV 8.7 fl 08/20/17 04:20 Neutrophils % 74.6 % (40.0-80.0) 08/20/17 04:20 Band Neutrophils % 0 % (0-10) 08/16/17 15:17 Lymphocytes % 15.7 % (20.0-50.0) L 08/20/17 04:20 Monocytes % 6.0 % (2.0-10.0) 08/20/17 04:20 Eosinophils % 1.2 % (0.0-5.0) 08/20/17 04:20 Basophils % 2.5 % (0.0-2.0) H 08/20/17 04:20 Neutrophils (Manual) 63 % (40-80) 08/16/17 15:17 Lymphocytes 32 % (20-50) 08/16/17 15:17 Monocytes 5 % (2-10) 08/16/17 15:17 Eosinophils 0 % (0-5) 08/16/17 15:17 Basophils 0 % (0-3) 08/16/17 15:17 Platelet Estimate ADEQUATE (NORMAL) 08/16/17 15:17 Platelet Morphology NORMAL (NORMAL) 08/16/17 15:17 RBC Morph Micro Appear NORMAL (NORMAL) 08/16/17 15:17 PT 10.6 SECONDS (9.5-11.5) 08/19/17 05:37 INR 1.02 (0.5-1.4) 08/19/17 05:37 PTT (Actin FS) 25.9 SECONDS (26.0-38.0) L 08/19/17 05:37 Sodium 134 mEq/L (136-145) L 08/20/17 04:20 Potassium 3.9 mEq/L (3.5-5.1) 08/20/17 04:20 Chloride 104 mEq/L (98-107) 08/20/17 04:20 Carbon Dioxide 24.4 mEq/L (21.0-31.0) 08/20/17 04:20 Anion Gap 9.5 (7.0-16.0) 08/20/17 04:20 BUN 13 mg/dL (7-25) 08/20/17 04:20 Creatinine 0.6 mg/dL (0.6-1.2) 08/20/17 04:20 Est GFR ( Amer) TNP 08/20/17 04:20 Est GFR (Non-Af Amer) TNP 08/20/17 04:20 BUN/Creatinine Ratio 21.7 08/20/17 04:20 Glucose 125 mg/dL (70-105) H 08/20/17 04:20 POC Glucose 89 MG/DL (70 - 105) 08/18/17 07:59 Calcium 8.1 mg/dL (8.6-10.3) L 08/20/17 04:20 Total Bilirubin 0.5 mg/dL (0.3-1.0) 08/20/17 04:20 AST 17 U/L (13-39) 08/20/17 04:20 ALT 12 U/L (7-52) 08/20/17 04:20 Alkaline Phosphatase 86 U/L (34-104) 08/20/17 04:20 Total Protein 5.3 gm/dL (6.0-8.3) L 08/20/17 04:20 Albumin 3.0 gm/dL (3.7-5.3) L 08/20/17 04:20 Globulin 2.3 gm/dL 08/20/17 04:20 Albumin/Globulin Ratio 1.3 (1.0-1.8) 08/20/17 04:20 - Physical Exam Vitals and I&O: Vital Signs Temp 97.6 F 08/20/17 04:00 Pulse 53 08/20/17 06:00 Resp 14 08/20/17 06:00 BP 150/60 08/20/17 06:00 Pulse Ox 100 08/20/17 06:00 Intake & Output 08/19/17 08/20/17 08/20/17 18:59 06:59 18:59 Intake Total 50 1465 Output Total 40 850 Balance 10 615 Weight (lbs) 45.813 kg 45.813 kg Intake: Intake, IV Amount 50 1465 Dextrose 5% 1,000 ml @ 1465 100 mls/hr IV .Q10H [facility] Rx#:[id number] Levofloxacin 250mg/50mL 50 250 mg In 50 ml @ 50 mls/ hr IV Q24HR [facility] Rx#: [id number] Oral 0 Output: Drainage 40 50 Right Lower Abdomen 40 50 Urine 750 Stool 50 Other: # Bowel Movements 1 Stool Characteristics Soft Soft Brown Active Medications: Current Medications Acetaminophen/Hydrocodone Bitart ([place] 5mg/325mg) 1 tab PO Q6H PRN PRN Reason: Pain (Moderate) Stop: 10/16/17 13:29 Docusate Sodium (Colace) 100 mg PO Q12HR [facility] Stop: 10/16/17 11:29 Last Admin: 08/19/17 20:50 Dose: Not Given Hydromorphone HCl (Dilaudid) 2 mg IVP Q4HR PRN PRN Reason: Pain (Severe) Stop: 08/20/17 14:04 Levofloxacin (Levaquin Pb) 250 mg in 50 mls @ 50 mls/hr IV Q24HR [facility] Stop: 10/18/17 08:59 Last Infusion: 08/19/17 09:15 Dose: Infused Dextrose (D5w) 1,000 mls @ 100 mls/hr IV .Q10H [facility] Stop: 10/18/17 09:04 Last Infusion: 08/20/17 06:00 Dose: 100 mls/hr Sodium Chloride (Nacl 0.9%) 1,000 mls @ 100 mls/hr IV .Q10H [facility] Stop: 08/20/17 14:14 Last Admin: 08/19/17 15:29 Dose: Not Given Morphine Sulfate (Morphine) 2 mg IVP Q4HR PRN PRN Reason: Pain (Moderate) Stop: 10/18/17 15:34 Last Admin: 08/20/17 01:12 Dose: 2 mg Neomycin Sulfate (Neomycin) 500 mg PO Q6H [facility] Stop: 10/17/17 16:59 Last Admin: 08/20/17 07:34 Dose: Not Given Nystatin (Nystop) 100,000 units TP Q12HR [facility] Stop: 08/24/17 11:59 Last Admin: 08/19/17 22:11 Dose: Not Given General: Alert, Oriented x3 HEENT: Atraumatic, PERRLA Neck: Supple Cardiovascular: Regular rate Abdomen: Bowel sounds, Soft, Other (no guard, no rebound, no distension. Rectal prolapse noted) - Procedures Procedures: Procedures Procedure Code Date COLONOSCOPY AND BIOPSY 70895 08/16/17 EXCISION OF CECUM, ENDO, DIAGN [id number] 08/16/17 EXCISION OF RECTUM, ENDO, DIAGN [id number] 08/16/17 EXCISION OF TRANSVERSE COLON, ENDO, DIAGN [id number] 08/16/17
--- NOTE | 2017-08-20 08:59 | GI Progress Note ---
Subjective - Review of Systems Service Date: 08/20/17 Subjective: Underwent prolapse repair and colostomy creation yesterday Objective - Results Result Diagrams: 08/20/17 04:20 08/20/17 04:20 Recent Labs: Laboratory Last Values WBC 8.7 Th/cmm (4.8-10.8) D 08/20/17 04:20 RBC 4.41 Mil/cmm (3.80-5.20) 08/20/17 04:20 Hgb 13.0 gm/dL (12-16) 08/20/17 04:20 Hct 39.3 % (41.0-60) L 08/20/17 04:20 MCV 89.1 fl (81-100) 08/20/17 04:20 MCH 29.5 pg (27.0-31.0) 08/20/17 04:20 MCHC Differential 33.1 pg (28.0-36.0) 08/20/17 04:20 RDW 13.7 % (11.5-20.0) 08/20/17 04:20 Plt Count 275 Th/cmm (150-400) 08/20/17 04:20 MPV 8.7 fl 08/20/17 04:20 Neutrophils % 74.6 % (40.0-80.0) 08/20/17 04:20 Band Neutrophils % 0 % (0-10) 08/16/17 15:17 Lymphocytes % 15.7 % (20.0-50.0) L 08/20/17 04:20 Monocytes % 6.0 % (2.0-10.0) 08/20/17 04:20 Eosinophils % 1.2 % (0.0-5.0) 08/20/17 04:20 Basophils % 2.5 % (0.0-2.0) H 08/20/17 04:20 Neutrophils (Manual) 63 % (40-80) 08/16/17 15:17 Lymphocytes 32 % (20-50) 08/16/17 15:17 Monocytes 5 % (2-10) 08/16/17 15:17 Eosinophils 0 % (0-5) 08/16/17 15:17 Basophils 0 % (0-3) 08/16/17 15:17 Platelet Estimate ADEQUATE (NORMAL) 08/16/17 15:17 Platelet Morphology NORMAL (NORMAL) 08/16/17 15:17 RBC Morph Micro Appear NORMAL (NORMAL) 08/16/17 15:17 PT 10.6 SECONDS (9.5-11.5) 08/19/17 05:37 INR 1.02 (0.5-1.4) 08/19/17 05:37 PTT (Actin FS) 25.9 SECONDS (26.0-38.0) L 08/19/17 05:37 Sodium 134 mEq/L (136-145) L 08/20/17 04:20 Potassium 3.9 mEq/L (3.5-5.1) 08/20/17 04:20 Chloride 104 mEq/L (98-107) 08/20/17 04:20 Carbon Dioxide 24.4 mEq/L (21.0-31.0) 08/20/17 04:20 Anion Gap 9.5 (7.0-16.0) 08/20/17 04:20 BUN 13 mg/dL (7-25) 08/20/17 04:20 Creatinine 0.6 mg/dL (0.6-1.2) 08/20/17 04:20 Est GFR ( Amer) TNP 08/20/17 04:20 Est GFR (Non-Af Amer) TNP 08/20/17 04:20 BUN/Creatinine Ratio 21.7 08/20/17 04:20 Glucose 125 mg/dL (70-105) H 08/20/17 04:20 POC Glucose 89 MG/DL (70 - 105) 08/18/17 07:59 Calcium 8.1 mg/dL (8.6-10.3) L 08/20/17 04:20 Total Bilirubin 0.5 mg/dL (0.3-1.0) 08/20/17 04:20 AST 17 U/L (13-39) 08/20/17 04:20 ALT 12 U/L (7-52) 08/20/17 04:20 Alkaline Phosphatase 86 U/L (34-104) 08/20/17 04:20 Total Protein 5.3 gm/dL (6.0-8.3) L 08/20/17 04:20 Albumin 3.0 gm/dL (3.7-5.3) L 08/20/17 04:20 Globulin 2.3 gm/dL 08/20/17 04:20 Albumin/Globulin Ratio 1.3 (1.0-1.8) 08/20/17 04:20 - Physical Exam Vitals and I&O: Vital Signs Temp 97.6 F 08/20/17 04:00 Pulse 119 08/20/17 08:03 Resp 18 08/20/17 08:03 BP 150/60 08/20/17 06:00 Pulse Ox 100 08/20/17 08:03 Intake & Output 08/19/17 08/20/17 08/20/17 18:59 06:59 18:59 Intake Total 50 1465 Output Total 40 850 Balance 10 615 Weight (lbs) 45.813 kg 45.813 kg Intake: Intake, IV Amount 50 1465 Dextrose 5% 1,000 ml @ 1465 100 mls/hr IV .Q10H [facility] Rx#:[id number] Levofloxacin 250mg/50mL 50 250 mg In 50 ml @ 50 mls/ hr IV Q24HR COUNT [facility]CLUDES THE [facility] Rx#: [id number] Oral 0 Output: Drainage 40 50 Right Lower Abdomen 40 50 Urine 750 Stool 50 Other: # Bowel Movements 1 Stool Characteristics Soft Soft Brown Active Medications: Current Medications Acetaminophen/Hydrocodone Bitart ([place] 5mg/325mg) 1 tab PO Q6H PRN PRN Reason: Pain (Moderate) Stop: 10/16/17 13:29 Docusate Sodium (Colace) 100 mg PO Q12HR [facility]CLUDES [facility] Stop: 10/16/17 11:29 Last Admin: 08/19/17 20:50 Dose: Not Given Hydromorphone HCl (Dilaudid) 2 mg IVP Q4HR PRN PRN Reason: Pain (Severe) Stop: 08/20/17 14:04 Levofloxacin (Levaquin Pb) 250 mg in 50 mls @ 50 mls/hr IV Q24HR COUNT [facility]CLUDES [facility] Stop: 10/18/17 08:59 Last Infusion: 08/19/17 09:15 Dose: Infused Dextrose (D5w) 1,000 mls @ 100 mls/hr IV .Q10H [facility] Stop: 10/18/17 09:04 Last Infusion: 08/20/17 06:00 Dose: 100 mls/hr Sodium Chloride (Nacl 0.9%) 1,000 mls @ 100 mls/hr IV .Q10H [facility]CLUD[facility] Stop: 08/20/17 14:14 Last Admin: 08/19/17 15:29 Dose: Not Given Morphine Sulfate (Morphine) 2 mg IVP Q4HR PRN PRN Reason: Pain (Moderate) Stop: 10/18/17 15:34 Last Admin: 08/20/17 01:12 Dose: 2 mg Neomycin Sulfate (Neomycin) 500 mg PO Q6H COUNT [facility]CLUDES [facility] Stop: 10/17/17 16:59 Last Admin: 08/20/17 07:34 Dose: Not Given Nystatin (Nystop) 100,000 units TP Q12HR COUNT [facility]CLUDES [facility] Stop: 08/24/17 11:59 Last Admin: 08/19/17 22:11 Dose: Not Given General: Alert, Oriented x3 HEENT: Atraumatic, PERRLA Neck: Supple Cardiovascular: Regular rate Abdomen: Bowel sounds, Soft, Other (no guard, no rebound, no distension. Rectal prolapse noted) - Procedures Procedures: Procedures Procedure Code Date COLONOSCOPY AND BIOPSY 83246 08/16/17 EXCISION OF CECUM, ENDO, DIAGN [id number] 08/16/17 EXCISION OF RECTUM, ENDO, DIAGN [id number] 08/16/17 EXCISION OF TRANSVERSE COLON, ENDO, DIAGN [id number] 08/16/17 Assessment/Plan - Assessment Assessment: # Rectal prolapse # Colon polyps # Perianal Skin breakdown Colonoscopy on 08/18 showed small colonic polyps, which were removed. Rectal prolapse was observed, reducible. Mild diverticulosis also noted. Now s/p prolapse repair and colostomy placement on 08/[address] Valencia recovering Recommendations: - recovery from her operation as per Dr Valencia - do not recommend further screening colonoscopy given her age - skin care with zinc based cream and anti fungal GI to see as needed, please call with any questions
[2017-08-20] MEDS: Levofloxacin 250 mg/50 mL Premix Bag IV SCH (11:43)
[2017-08-20] MEDS: NYSTATIN 100000 UNITS/GM POWD TP SCH (14:57)
[2017-08-20] MEDS: Sodium Chloride 0.9% 1,000 ML IV SCH ×2 (15:45→15:46)
--- NOTE | 2017-08-20 21:33 | Internal Medicine Prog Note ---
Internal Medicine Subjective - Subjective Service Date: 08/20/17 Patient seen and examined:: with staff Patient is:: awake Per staff patient has:: tolerating meds Internal Medicine Objective - Results Result Diagrams: 08/20/17 04:20 08/20/17 04:20 Recent Labs: Laboratory Last Values WBC 8.7 Th/cmm (4.8-10.8) D 08/20/17 04:20 RBC 4.41 Mil/cmm (3.80-5.20) 08/20/17 04:20 Hgb 13.0 gm/dL (12-16) 08/20/17 04:20 Hct 39.3 % (41.0-60) L 08/20/17 04:20 MCV 89.1 fl (81-100) 08/20/17 04:20 MCH 29.5 pg (27.0-31.0) 08/20/17 04:20 MCHC Differential 33.1 pg (28.0-36.0) 08/20/17 04:20 RDW 13.7 % (11.5-20.0) 08/20/17 04:20 Plt Count 275 Th/cmm (150-400) 08/20/17 04:20 MPV 8.7 fl 08/20/17 04:20 Neutrophils % 74.6 % (40.0-80.0) 08/20/17 04:20 Band Neutrophils % 0 % (0-10) 08/16/17 15:17 Lymphocytes % 15.7 % (20.0-50.0) L 08/20/17 04:20 Monocytes % 6.0 % (2.0-10.0) 08/20/17 04:20 Eosinophils % 1.2 % (0.0-5.0) 08/20/17 04:20 Basophils % 2.5 % (0.0-2.0) H 08/20/17 04:20 Neutrophils (Manual) 63 % (40-80) 08/16/17 15:17 Lymphocytes 32 % (20-50) 08/16/17 15:17 Monocytes 5 % (2-10) 08/16/17 15:17 Eosinophils 0 % (0-5) 08/16/17 15:17 Basophils 0 % (0-3) 08/16/17 15:17 Platelet Estimate ADEQUATE (NORMAL) 08/16/17 15:17 Platelet Morphology NORMAL (NORMAL) 08/16/17 15:17 RBC Morph Micro Appear NORMAL (NORMAL) 08/16/17 15:17 PT 10.6 SECONDS (9.5-11.5) 08/19/17 05:37 INR 1.02 (0.5-1.4) 08/19/17 05:37 PTT (Actin FS) 25.9 SECONDS (26.0-38.0) L 08/19/17 05:37 Sodium 134 mEq/L (136-145) L 08/20/17 04:20 Potassium 3.9 mEq/L (3.5-5.1) 08/20/17 04:20 Chloride 104 mEq/L (98-107) 08/20/17 04:20 Carbon Dioxide 24.4 mEq/L (21.0-31.0) 08/20/17 04:20 Anion Gap 9.5 (7.0-16.0) 08/20/17 04:20 BUN 13 mg/dL (7-25) 08/20/17 04:20 Creatinine 0.6 mg/dL (0.6-1.2) 08/20/17 04:20 Est GFR ( Amer) TNP 08/20/17 04:20 Est GFR (Non-Af Amer) TNP 08/20/17 04:20 BUN/Creatinine Ratio 21.7 08/20/17 04:20 Glucose 125 mg/dL (70-105) H 08/20/17 04:20 POC Glucose 83 MG/DL (70 - 105) 08/19/17 10:02 Calcium 8.1 mg/dL (8.6-10.3) L 08/20/17 04:20 Total Bilirubin 0.5 mg/dL (0.3-1.0) 08/20/17 04:20 AST 17 U/L (13-39) 08/20/17 04:20 ALT 12 U/L (7-52) 08/20/17 04:20 Alkaline Phosphatase 86 U/L (34-104) 08/20/17 04:20 Total Protein 5.3 gm/dL (6.0-8.3) L 08/20/17 04:20 Albumin 3.0 gm/dL (3.7-5.3) L 08/20/17 04:20 Globulin 2.3 gm/dL 08/20/17 04:20 Albumin/Globulin Ratio 1.3 (1.0-1.8) 08/20/17 04:20 - Physical Exam Vitals and I&O: Vital Signs Temp 98.2 F 08/20/17 20:00 Pulse 71 08/20/17 20:00 Resp 20 08/20/17 20:00 BP 130/66 08/20/17 20:00 Pulse Ox 97 08/20/17 20:00 Intake & Output 08/20/17 08/20/17 08/21/17 06:59 18:59 06:59 Intake Total 1465 450 Output Total 850 1900 Balance 615 -1450 Weight (lbs) 101 lb 101 lb Intake: Intake, IV Amount 1465 50 Dextrose 5% 1,000 ml @ 1465 100 mls/hr IV .Q10H [facility] Rx#:[id number] Levofloxacin 250mg/50mL 50 250 mg In 50 ml @ 50 mls/ hr IV Q24HR [facility] Rx#: [id number] Oral 0 400 Output: Drainage 50 50 Right Lower Abdomen 50 50 Urine 750 1800 Stool 50 50 Other: # Bowel Movements 1 Stool Characteristics Soft Brown Active Medications: Current Medications Acetaminophen/Hydrocodone Bitart ([place] 5mg/325mg) 1 tab PO Q6H PRN PRN Reason: Pain (Moderate) Stop: 10/16/17 13:29 Amlodipine Besylate (Norvasc) 10 mg PO DAILY [facility] Stop: 10/20/17 08:59 Docusate Sodium (Colace) 100 mg PO Q12HR [facility] Stop: 10/16/17 11:29 Last Admin: 08/20/17 09:33 Dose: Not Given Levofloxacin (Levaquin Pb) 250 mg in 50 mls @ 50 mls/hr IV Q24HR [facility] Stop: 10/18/17 08:59 Last Infusion: 08/20/17 14:57 Dose: Infused Dextrose (D5w) 1,000 mls @ 100 mls/hr IV .Q10H [facility] Stop: 10/18/17 09:04 Last Infusion: 08/20/17 06:00 Dose: 100 mls/hr Losartan Potassium (Cozaar) 100 mg PO DAILY [facility] Stop: 10/20/17 08:59 Morphine Sulfate (Morphine) 2 mg IVP Q4HR PRN PRN Reason: Pain (Moderate) Stop: 10/18/17 15:34 Last Admin: 08/20/17 14:59 Dose: 2 mg Neomycin Sulfate (Neomycin) 500 mg PO Q6H [facility] Stop: 10/17/17 16:59 Last Admin: 08/20/17 17:59 Dose: 500 mg Nystatin (Nystop) 100,000 units TP Q12HR [facility] Stop: 08/24/17 11:59 Last Admin: 08/20/17 14:57 Dose: Not Given General: weak, alert HEENT: NC/AT, PERRLA Neck: Supple Lungs: CTAB Cardiovascular: RRR, Normal S1, Normal S2 Abdomen: soft, non-tender, non-distended, positive bowel sound Neurological: alert - Procedures Procedures: Procedures Procedure Code Date COLONOSCOPY AND BIOPSY 16195 08/16/17 EXCISION OF CECUM, ENDO, DIAGN [id number] 08/16/17 EXCISION OF RECTUM, ENDO, DIAGN [id number] 08/16/17 EXCISION OF TRANSVERSE COLON, ENDO, DIAGN [id number] 08/16/17 Internal Medicine Assmt/Plan - Assessment Assessment: rectal pain rectal prolapse - Plan Plan: PAIN MGMT CONTINUE CUREENT ORDERS
[2017-08-21] MEDS: NYSTATIN 100000 UNITS/GM POWD TP SCH ×3 (00:05→12:36)
[2017-08-21 06:18] LABS: % BASOPHILS 0.1 % (0.0-2.0); % EOSINOPHILS 0.4 % (0.0-5.0); % LYMPHOCYTES 12.5 % (20.0-50.0); HEMATOCRIT 41.1 % (41.0-60); LYMPHOCYTE ABSOLUTE 1.5 Th/cmm (1.5-3.0); MEAN CELL VOLUME 88.8 fl (81-100); MEAN CORPUSCULAR HEMOGLOBIN 30.3 pg (27.0-31.0); MEAN CORPUSCULAR HGB CONC 34.1 pg (28.0-36.0); MEAN PLATELET VOLUME 9.3 fl; MONOCYTE ABSOLUTE 0.5 Th/cmm (0.3-1.0); NEUTROPHILE ABSOLUTE 9.9 Th/cmm (1.8-8.0); PLATELET COUNT 295 Th/cmm (150-400); RED BLOOD COUNT 4.62 Mil/cmm (3.80-5.20)
[2017-08-21 06:22] LABS: WHITE BLOOD COUNT 11.9 Th/cmm (4.8-10.8)
[2017-08-21 06:29] LABS: ALB/GLOB RATIO 1.3 (1.0-1.8); ALKALINE PHOSPHATASE 83 U/L (34-104); ANION GAP 10.8 (7.0-16.0); BILIRUBIN,TOTAL 0.5 mg/dL (0.3-1.0); CALCIUM SERUM 8.4 mg/dL (8.6-10.3); CARBON DIOXIDE 25.5 mEq/L (21.0-31.0); CHLORIDE 103 mEq/L (98-107); CREATININE - SERUM 0.7 mg/dL (0.6-1.2); GLUCOSE 132 mg/dL (70-105); POTASSIUM SERUM 4.3 mEq/L (3.5-5.1); SGOT 19 U/L (13-39); SGPT/ALT 12 U/L (7-52); SODIUM SERUM 135 mEq/L (136-145); TOTAL PROTEIN,SERUM 5.4 gm/dL (6.0-8.3)
[2017-08-21 07:19] LABS: BUN - UREA NITROGEN 8 mg/dL (7-25)
[2017-08-21] MEDS ORDERED: Propofol 10 mg/mL 20mL Vial **SURGERY USE ONLY IV ONE (09:00)
[2017-08-21] MEDS: Levofloxacin 250 mg/50 mL Premix Bag IV SCH (10:00)
[2017-08-21] MEDS ORDERED: Probiotic Screen MC PRN (11:15)
[2017-08-21] MEDS: Dextrose 5% 1,000 ML IV SCH (12:37)
--- NOTE | 2017-08-21 12:48 | General Progress Note ---
Subjective - Review of Systems Service Date: 08/21/17 Events since last encounter: labs ok tolerating diet for DC to LT[facility] today, will see patient there Objective - Results Result Diagrams: 08/21/17 05:36 08/21/17 05:36 Recent Labs: Laboratory Last Values WBC 11.9 Th/cmm (4.8-10.8) H D 08/21/17 05:36 RBC 4.62 Mil/cmm (3.80-5.20) 08/21/17 05:36 Hgb 14.0 gm/dL (12-16) 08/21/17 05:36 Hct 41.1 % (41.0-60) 08/21/17 05:36 MCV 88.8 fl (81-100) 08/21/17 05:36 MCH 30.3 pg (27.0-31.0) 08/21/17 05:36 MCHC Differential 34.1 pg (28.0-36.0) 08/21/17 05:36 RDW 14.0 % (11.5-20.0) 08/21/17 05:36 Plt Count 295 Th/cmm (150-400) 08/21/17 05:36 MPV 9.3 fl 08/21/17 05:36 Neutrophils % 83.0 % (40.0-80.0) H 08/21/17 05:36 Band Neutrophils % 0 % (0-10) 08/16/17 15:17 Lymphocytes % 12.5 % (20.0-50.0) L 08/21/17 05:36 Monocytes % 4.0 % (2.0-10.0) 08/21/17 05:36 Eosinophils % 0.4 % (0.0-5.0) 08/21/17 05:36 Basophils % 0.1 % (0.0-2.0) 08/21/17 05:36 Neutrophils (Manual) 63 % (40-80) 08/16/17 15:17 Lymphocytes 32 % (20-50) 08/16/17 15:17 Monocytes 5 % (2-10) 08/16/17 15:17 Eosinophils 0 % (0-5) 08/16/17 15:17 Basophils 0 % (0-3) 08/16/17 15:17 Platelet Estimate ADEQUATE (NORMAL) 08/16/17 15:17 Platelet Morphology NORMAL (NORMAL) 08/16/17 15:17 RBC Morph Micro Appear NORMAL (NORMAL) 08/16/17 15:17 PT 10.6 SECONDS (9.5-11.5) 08/19/17 05:37 INR 1.02 (0.5-1.4) 08/19/17 05:37 PTT (Actin FS) 25.9 SECONDS (26.0-38.0) L 08/19/17 05:37 Sodium 135 mEq/L (136-145) L 08/21/17 05:36 Potassium 4.3 mEq/L (3.5-5.1) 08/21/17 05:36 Chloride 103 mEq/L (98-107) 08/21/17 05:36 Carbon Dioxide 25.5 mEq/L (21.0-31.0) 08/21/17 05:36 Anion Gap 10.8 (7.0-16.0) 08/21/17 05:36 BUN 8 mg/dL (7-25) 08/21/17 05:36 Creatinine 0.7 mg/dL (0.6-1.2) 08/21/17 05:36 Est GFR ( Amer) TNP 08/21/17 05:36 Est GFR (Non-Af Amer) TNP 08/21/17 05:36 BUN/Creatinine Ratio 11.4 08/21/17 05:36 Glucose 132 mg/dL (70-105) H 08/21/17 05:36 POC Glucose 83 MG/DL (70 - 105) 08/19/17 10:02 Calcium 8.4 mg/dL (8.6-10.3) L 08/21/17 05:36 Total Bilirubin 0.5 mg/dL (0.3-1.0) 08/21/17 05:36 AST 19 U/L (13-39) 08/21/17 05:36 ALT 12 U/L (7-52) 08/21/17 05:36 Alkaline Phosphatase 83 U/L (34-104) 08/21/17 05:36 Total Protein 5.4 gm/dL (6.0-8.3) L 08/21/17 05:36 Albumin 3.0 gm/dL (3.7-5.3) L 08/21/17 05:36 Globulin 2.4 gm/dL 08/21/17 05:36 Albumin/Globulin Ratio 1.3 (1.0-1.8) 08/21/17 05:36 - Physical Exam Vitals and I&O: Vital Signs Temp 96.4 F 08/21/17 11:19 Pulse 71 08/21/17 11:19 Resp 11 08/21/17 11:19 BP 105/63 08/21/17 11:19 Pulse Ox 98 08/21/17 11:19 Intake & Output 08/20/17 08/21/17 08/21/17 18:59 06:59 18:59 Intake Total 985 600 650 Output Total 1900 700 400 Balance -915 -100 250 Weight (lbs) 45.813 kg 53.705 kg 53.524 kg Intake: Intake, IV Amount 585 50 Dextrose 5% 1,000 ml @ 535 100 mls/hr IV .Q10H [facility] Rx#:[id number] Levofloxacin 250mg/50mL 50 50 250 mg In 50 ml @ 50 mls/ hr IV Q24HR [facility] Rx#: [id number] Oral 400 600 600 Output: Drainage 50 100 100 Right Lower Abdomen 50 100 100 Urine 1800 600 300 Stool 50 Active Medications: Current Medications Acetaminophen/Hydrocodone Bitart ([place] 5mg/325mg) 1 tab PO Q6H PRN PRN Reason: Pain (Moderate) Stop: 10/16/17 13:29 Amlodipine Besylate (Norvasc) 10 mg PO DAILY [facility] Stop: 10/20/17 08:59 Last Admin: 08/21/17 08:37 Dose: Not Given Docusate Sodium (Colace) 100 mg PO Q12HR [facility] Stop: 10/16/17 11:29 Last Admin: 08/21/17 08:40 Dose: 100 mg Levofloxacin (Levaquin Pb) 250 mg in 50 mls @ 50 mls/hr IV Q24HR [facility] Stop: 10/18/17 08:59 Last Infusion: 08/21/17 12:40 Dose: Infused Dextrose (D5w) 1,000 mls @ 100 mls/hr IV .Q10H [facility] Stop: 10/18/17 09:04 Last Admin: 08/21/17 12:37 Dose: 100 mls/hr Lactobacillus Rhamnosus (Culturelle 15b) 1 each PO DAILY [facility] Stop: 10/21/17 08:59 Losartan Potassium (Cozaar) 100 mg PO DAILY [facility] Stop: 10/20/17 08:59 Last Admin: 08/21/17 08:37 Dose: Not Given Miscellaneous (Probiotic Screen) 1 ea MC PRN PRN PRN Reason: PROTOCOL Stop: 10/20/17 11:14 Morphine Sulfate (Morphine) 2 mg IVP Q4HR PRN PRN Reason: Pain (Moderate) Stop: 10/18/17 15:34 Last Admin: 08/20/17 22:22 Dose: 2 mg Neomycin Sulfate (Neomycin) 500 mg PO Q6H [facility] Stop: 10/17/17 16:59 Last Admin: 08/21/17 12:00 Dose: 500 mg Nystatin (Nystop) 100,000 units TP Q12HR [facility] Stop: 08/24/17 11:59 Last Admin: 08/21/17 12:36 Dose: 100,000 units General: Alert, Oriented x3 HEENT: Atraumatic, PERRLA Neck: Supple Cardiovascular: Regular rate Abdomen: Bowel sounds, Soft, Other (no guard, no rebound, no distension. Rectal prolapse noted) - Procedures Procedures: Procedures Procedure Code Date COLONOSCOPY AND BIOPSY 02756 08/16/17 EXCISION OF CECUM, ENDO, DIAGN [id number] 08/16/17 EXCISION OF RECTUM, ENDO, DIAGN [id number] 08/16/17 EXCISION OF TRANSVERSE COLON, ENDO, DIAGN [id number] 08/16/17 Nutritional Asmnt/Malnutr-PDOC - Dietary Evaluation Malnutrition Findings (Please click <Entered> for more info): Nutritional Asmnt/Malnutrition Start: 08/21/17 12: 31 Text: Status: Active Freq: Document 08/21/17 12:31 MMULN (Rec: 08/21/17 12:39 [facility] Nutritional Asmnt/Malnutrition Patient General Information Nutritional Screening Moderate Risk Diagnosis Rectal prolapse Pertinent Medical Hx/Surgical Hx None noted in H&P Subjective Information Patient is s/p colon resection /colostomy placement. Per nursing notes, colostomy with minumal liquid. Patient able to self feed without difficulty. Tolerating full liquids. Current Diet Order/ Nutrition Support full liquid, Boost plus BID Patient / S.O Not Indicated Pertinent Medications D5W @ 100ml/hr, colace, cozaar Pertinent Labs 08/21: Na 135, glucose 64-132, Ca 8.4, albumin 3 (decreased) Nutritional Hx/Data Height 1.57 m Height (Calculated Centimeters) 157.5 Current Weight (lbs) 53.524 kg Weight (Calculated Kilograms) 53.5 Weight (Calculated Grams) 11752.9 [place] Body Weight 110 % [place] Body Weight 107 Body Mass Index (BMI) 21.5 Recent Weight Change No Weight Status Approriate GI Symptoms Last BM Colostomy, hypoactive bowel sounds Difficult in: None Food Allergies No Cultural/Ethnic/Islam Belief None stated Usual diet at home Regular Skin Integrity/Comment: [place] 12; per wound carenotes Current %PO Fair (50-74%) Estimated Nutritional Goals BEE in Kcals: Using Current wt Calories/Kcals/Kg 25-30 kcal/kg (using 53.6 kg CBW) Kcals Calculated ~4354-3728 kcal/day Protein: Using Current wt Protein g/k-1.2 gm/kg Protein Calculated 55-65 gm/day Fluid: ml ~7930-9413 ml/day (1 ml/kcal) Nutritional Problem 1. Problem Problem Inadequate oral intake related to Etiology Current diet order full liquid Signs/Symptoms: meeting ~75 % of nutrient needs Intervention/Recommendation Comments 1. Progress diet as tolerated to regular. Continue Boost plus at this time until oral intake is adquate to meet nutrient needs. Expected Outcomes/Goals Expected Outcomes/Goals diet progresses, oral intake < 75% of meals, nutrition related labs stable, weight stable, improved skin integrity
[2017-08-21] MEDS: Hydrocodone/APAP 5mg/325mg Tab PO PRN (13:01)
--- NOTE | 2017-08-22 01:44 | Progress Notes ---
DATE: 08/21/2017 SUBJECTIVE: The patient was seen in her room, lying in the bed. The patient is awake, alert, oriented x 4, appears to be weak. Denies any pain or discomfort at this time. Otherwise, the patient appears to be comfortable in no acute distress. OBJECTIVE: VITAL SIGNS: Temperature 97.1, heart rate 62, blood pressure 124/52, respirations 20, 96% on room air. HEENT: Head is atraumatic and normocephalic. Eyes: Bilateral conjunctivae are clear. Bilateral pupils are equally round and reactive. NECK: Supple. No JVD. CARDIOVASCULAR: S1 and S2, without murmur. PULMONARY: Clear to auscultation. GASTROINTESTINAL: Soft and nontender without guarding. Positive bowel sounds. MUSCULOSKELETAL: No clubbing, no cyanosis noted. ASSESSMENT: 1. Rectal prolapse. 2. Colon polyps 3. Diverticulosis. 4. Diverting colostomy. PLAN: We will continue current treatment plan. We will monitor the patient's nutritional status. We are also going to provide pain management as needed. Treatment plans were discussed with the patient's nurse. Treatment plans were discussed with Dr. Patino. JOB# [id number]
[2017-08-22] MEDS ORDERED: Lactobacillus Rhamnosus GG 15 Billion CFU CAP.SPRINK PO SCH (09:00)
--- NOTE | 2017-08-23 16:04 | Pathology Report ---
[id number] Collection Date: 08/19/2017 Surgeon: Dr. David Valencia Specimen Description: Partial sigmoid colon resection Gross Description: Received in formalin is a 17 cm in length x up to 3.8 cm in outer diameter partial resection of colon with a smooth, glistening outer serosal surface. Opening the specimen shows multiple diverticular outpouchings with one area where the colon is slightly dilated to 4.5 cm in diameter. The diverticula range from 0.8 to 1.5 cm in greatest dimension and are surrounded by an intact muscular wall with no evidence for perforation appreciated. Brain Surgeon sections are submitted in five cassettes labeled A1 to A5. Cassette A1 to A3 show the diverticula, cassette A4 and A5 show random sections. Microscopic Description: The histologic sections show colon with multiple diverticular outpouchings. There is no significant inflammation and no evidence for abscess or perforation. Diagnosis: Colonic diverticulosis, partial sigmoid colon resection. [facility]# [id number]
--- NOTE | 2017-09-11 11:03 | Discharge Summary ---
DATE OF DISCHARGE: 08/21/2017 COURSE OF TREATMENT: This is an 87-year-old female who was admitted from home due to rectal pain for 1 week. Denies any fever. The patient underwent a colonoscopy with biopsy with diagnosis of rectal prolapse and colonic polyps and diverticulosis. The patient also underwent exploratory laparotomy with resection of descending colon with a diverting colostomy. The patient was started with a series of antibiotics. Once stable, the patient was discharged to long-term acute care to [facility] where the patient will continue to have IV antibiotics to receive patient's continue medication reconciliation. Dr. Patino to follow. [facility]# [id number]
--- NOTE | 2017-09-18 14:42 | ER Physician Documentation ---
DATE OF SERVICE: This is an old note that was missing, it was lost or whatever happened and I was asked to re-dictate it. So it is dictated to the best of my memory. It was sent by Dr. Patino. The patient had rectal prolapse. The patient was seen by me. She had a rectal prolapse and I, with the help of the nurse, reduced the rectal prolapse and then the surgeon came after about maybe half an hour to 45 minutes to see the patient. The surgeon was informed that the prolapse was pushed back in. Another history that the surgeon needed was given to the patient. The patient said that she did not have any myocardial infarction, coronary artery disease, chest pain, angina pectoris. HISTORY OF PRESENT ILLNESS: Whenever she strains a little bit also, she gets a prolapse in the rectum. REVIEW OF SYSTEMS: Essentially is benign and negative. Cardiac is negative. No angina, no myocardial infarction, no rheumatic fever. Pulmonary: No pneumonia, no TB no pulmonary embolism. GI: No diarrhea. There is a history of constipation and a history of prolapsed rectum for the past few months and a surgical consultation has been requested. PHYSICAL EXAMINATION: The patient appears to be awake, alert, oriented, not in any acute cardiorespiratory distress. All review of system is essentially benign and negative. General exam is benign and negative. The patient wears a diaper. She is awake, alert, even though she is 87-year-old, her date of is 1930 and this is dictated today on the , but the patient was in the hospital earlier than that, last week or sometime that must be in the chart. 08/16/2017, she was there and the patient's general examination was found to be negative except for rectal prolapse, which with the help of the ice pack and manually was reduced to and pushed back inside the body and then the piece of cloth and the diaper was applied over there. Chest appeared to be clear. No rales, rhonchi, or bronchial wheezing. Abdomen is soft, benign and negative. Liver, spleen not enlarged. No free fluid in the abdominal cavity. Cerebellar system is within normal limits. The patient uses walker for ambulation. The patient will be admitted. Dr. Patino was called about the patient and the patient was admitted to the hospital for rectal prolapse and possible surgical treatment, etc. this would be necessary for the patient. Otherwise, the patient said that she never had any other medical problem. JOB# [id number]
--- NOTE | 2018-01-12 16:26 | ER Physician Documentation ---
DATE OF SERVICE: I was asked by the medical record department to write down the missing MDM. To the best of my knowledge and memory, I believe this patient came with rectal pain and she had a rectal prolapse and I have written here, Dr. Patino called about the patient and the patient was admitted. FINAL DIAGNOSIS: Rectal prolapse. In the Emergency Room, I saw the patient and ____ rectal prolapse and after an hour or hour and a half, I believe one of the surgeon came and I told the surgeon that the rectal prolapse was decompressed, and then, the surgeon went away. JOB# [id number]
== END 2017-08-21 16:15 | DRG 327 ==
LOC: ER 12:58 → MSI 17:00 → ICU 08-19 15:00 → TELE 08-20 19:53
PROVIDERS: ADMIT Internal Medicine; ATTEND Internal Medicine
PROC: 0D1M0Z4 Bypass Descending Colon to Cutaneous, Open Approach (ICD-10-PCS; 2017-08-16)
PROC: 0DN60ZZ Release Stomach, Open Approach (ICD-10-PCS; 2017-08-16)
PROC: 0DBH8ZX Excision of Cecum, Via Natural or Artificial Opening Endoscopic, Diagnostic (ICD-10-PCS; principal; 2017-08-18)
PROC: 0DBL8ZX Excision of Transverse Colon, Via Natural or Artificial Opening Endoscopic, Diagnostic (ICD-10-PCS; 2017-08-18)
PROC: 0DBP8ZX Excision of Rectum, Via Natural or Artificial Opening Endoscopic, Diagnostic (ICD-10-PCS; 2017-08-18)
PROC: 0DBM0ZZ Excision of Descending Colon, Open Approach (ICD-10-PCS; 2017-08-19)
PROC: 0DBP0ZZ Excision of Rectum, Open Approach (ICD-10-PCS; 2017-08-19)
PROC: 0DBN0ZZ Excision of Sigmoid Colon, Open Approach (ICD-10-PCS; 2017-08-19)
PROC: 0DQP0ZZ Repair Rectum, Open Approach (ICD-10-PCS; 2017-08-19)
DX: K57.30 Diverticulosis of large intestine without perforation or abscess without bleeding (principal); Z68.1 Body mass index [BMI] 19.9 or less, adult; K62.3 Rectal prolapse; K63.5 Polyp of colon; M81.0 Age-related osteoporosis without current pathological fracture; R32 Unspecified urinary incontinence; R63.6 Underweight
CPT/HCPCS: 36415-UA; 71045-TC; 80053-TC; 82948-90; 85007-TC; 85025-TC; 85027-TC; 85610-TC; 87070-90; 87075-90; 87205-90; 88305-90; 88307-TC; 90799; 93005; J0360; J1885; J1956; J2270; J2704; J2710; J3010; J7042; J7070; X3904; X6258; Z7506; Z7512; Z7610

== ENCOUNTER 2017-12-10 08:43 | Inpatient (IN) | payer MEDICARE ==
--- NOTE | 2017-12-13 08:28 | Diagnostic Imaging Report ---
Portable chest x-ray HISTORY: Pain The heart appears enlarged. Atherosclerotic calcification seen in the aorta. There is questionable density within the left lower lobe. Pneumonia cannot be definitely excluded. Possible, standard PA and lateral views would be helpful. No hilar or mediastinal abnormalities. IMPRESSION: 1. Cardiomegaly with atherosclerotic vascular changes 2. Questionable density left lower lobe. Pneumonia cannot be definitely excluded. If possible, standard PA and lateral views would be helpful.
[2017-12-13 08:41] LABS: % BASOPHILS 1.3 % (0.0-2.0); % EOSINOPHILS 1.2 % (0.0-5.0); % LYMPHOCYTES 38.7 % (20.0-50.0); % MONOCYTES 6.5 % (2.0-10.0); % NEUTROPHILS 52.3 % (40.0-80.0); BASOPHILE ABSOLUTE 0.1 Th/cumm (0-0.2); EOSINOPHILE ABSOLUTE 0.1 Th/cmm (0.1-0.4); HEMATOCRIT 47.8 % (41.0-60); HEMOGLOBIN 16.1 gm/dL (12-16); MEAN CELL VOLUME 92.2 fl (81-100); MEAN CORPUSCULAR HGB CONC 33.6 pg (28.0-36.0); MEAN PLATELET VOLUME 8.7 fl; MONOCYTE ABSOLUTE 0.3 Th/cmm (0.3-1.0); NEUTROPHILE ABSOLUTE 2.7 Th/cmm (1.8-8.0); PLATELET COUNT 270 Th/cmm (150-400); RED BLOOD COUNT 5.19 Mil/cmm (3.80-5.20); RED CELL DISTRIBUTION WIDTH 13.4 % (11.5-20.0); WHITE BLOOD COUNT 5.2 Th/cmm (4.8-10.8)
[2017-12-13 08:43] VITALS: BP 189/92
[2017-12-13] MEDS ORDERED: Pneumococcal Vaccine 0.5 mL Vial IM ONE (08:56)
[2017-12-13 09:00] LABS: INR 1.09 (0.5-1.4); PROTHROMBIN TIME (TEST) 11.4 SECONDS (9.5-11.5)
[2017-12-13 09:10] LABS: ALB/GLOB RATIO 1.4 (1.0-1.8); ALKALINE PHOSPHATASE 125 U/L (34-104); ANION GAP 12.9 (7.0-16.0); BILIRUBIN,TOTAL 0.7 mg/dL (0.3-1.0); BUN - UREA NITROGEN 16 mg/dL (7-25); CALCIUM SERUM 9.9 mg/dL (8.6-10.3); CARBON DIOXIDE 30.1 mEq/L (21.0-31.0); CHLORIDE 101 mEq/L (98-107); CREATININE - SERUM 0.8 mg/dL (0.6-1.2); GLUCOSE 96 mg/dL (70-105); SGOT 24 U/L (13-39); SGPT/ALT 15 U/L (7-52); SODIUM SERUM 139 mEq/L (136-145); TOTAL PROTEIN,SERUM 6.8 gm/dL (6.0-8.3)
[2017-12-13] MEDS ORDERED: cefTRIAXone 1 GM in Sodium Chloride 0.9% 50 ML IV ONE (10:00)
[2017-12-13 11:09] LABS: URINE MICROSCOPIC INDICATED? YES; URINE SOURCE CLEAN C
[2017-12-13 11:11] LABS: URINE BILIRUBIN NEGATIVE (NEGATIVE); URINE BLOOD TRACE (NEGATIVE); URINE GLUCOSE (UA) NEGATIVE (NEGATIVE); URINE KETONE NEGATIVE (NEGATIVE); URINE LEUKOCYTE ESTERASE SMALL (NEGATIVE); URINE NITRATE NEGATIVE (NEGATIVE); URINE PROTEIN NEGATIVE (NEGATIVE); URINE UROBILINOGEN 0.2 E.U./dL (0.2 - 1.0)
[2017-12-13 11:12] LABS: URINE CLARITY CLEAR (CLEAR); URINE COLOR YELLOW
[2017-12-13 11:19] LABS: URINE BACTERIA FEW /hpf (NONE SEEN); URINE EPITHELIAL CELLS FEW /lpf (FEW)
[2017-12-13] MEDS ORDERED: Propofol **SURGERY USE ONLY** 20 ML IV ONE (11:53)
[2017-12-13] MEDS ORDERED: Neostigmine 10mg/10mL Vial ONE (11:54)
[2017-12-13] MEDS ORDERED: VTE Chemical Prophylaxis Screen/Admission MC PRN (12:34)
[2017-12-13] MEDS ORDERED: Meperidine 25 mg/mL 1mL Syr IVP PRN (14:32)
[2017-12-13] MEDS ORDERED: Meperidine 50 mg/mL 1mL Syr ONE (14:40)
[2017-12-13] MEDS ORDERED: Levofloxacin 750mg/150mL 750 MG in Premix Fluid 1 BAG IV SCH (15:00)
[2017-12-13 15:18] LABS: pH 7.41 (7.35-7.45)
[2017-12-13] MEDS: Morphine Sulfate 4 mg/mL 1mL Syr IVP PRN (16:36)
[2017-12-13] MEDS: metroNIDAZOLE 500mg/NS 100mL 500 MG in Premix Fluid 1 BAG IV SCH ×2 (16:36→23:32)
[2017-12-13] MEDS: Sodium Chloride 0.9% 1,000 ML IV SCH (17:00)
[2017-12-13] MEDS: Levofloxacin 750mg/150mL 750 MG in Premix Fluid 1 BAG IV SCH (17:42)
[2017-12-14 04:30] LABS: HEMATOCRIT 46.5 % (41.0-60); HEMOGLOBIN 15.6 gm/dL (12-16); MEAN CELL VOLUME 91.5 fl (81-100); MEAN CORPUSCULAR HEMOGLOBIN 30.7 pg (27.0-31.0); MEAN CORPUSCULAR HGB CONC 33.5 pg (28.0-36.0); MEAN PLATELET VOLUME 8.8 fl; PLATELET COUNT 248 Th/cmm (150-400); RED BLOOD COUNT 5.07 Mil/cmm (3.80-5.20); RED CELL DISTRIBUTION WIDTH 13.6 % (11.5-20.0)
[2017-12-14 04:40] LABS: MANUAL DIFF REQUIRED? YES; WHITE BLOOD COUNT 12.1 Th/cmm (4.8-10.8)
[2017-12-14 04:46] LABS: ALB/GLOB RATIO 1.4 (1.0-1.8); ALBUMIN 3.3 gm/dL (3.7-5.3); ALKALINE PHOSPHATASE 84 U/L (34-104); ANION GAP 13.9 (7.0-16.0); BILIRUBIN,TOTAL 0.6 mg/dL (0.3-1.0); BUN - UREA NITROGEN 21 mg/dL (7-25); CALCIUM SERUM 8.5 mg/dL (8.6-10.3); CARBON DIOXIDE 22.4 mEq/L (21.0-31.0); CHLORIDE 104 mEq/L (98-107); GLUCOSE 112 mg/dL (70-105); POTASSIUM SERUM 4.3 mEq/L (3.5-5.1); SGOT 18 U/L (13-39); SGPT/ALT 10 U/L (7-52); SODIUM SERUM 136 mEq/L (136-145); TOTAL PROTEIN,SERUM 5.7 gm/dL (6.0-8.3)
[2017-12-14] MEDS: Sodium Chloride 0.9% 1,000 ML IV SCH (05:09)
[2017-12-14 05:28] LABS: BAND NEUTROPHILE 8 % (0-10); LYMPHOCYTE 10 % (20-50); MONOCYTE 4 % (2-10); NEUTROPHILS 78 % (40-80); TOTAL CELLS COUNTED 100
[2017-12-14] MEDS: metroNIDAZOLE 500mg/NS 100mL 500 MG in Premix Fluid 1 BAG IV SCH ×3 (06:30→22:11)
--- NOTE | 2017-12-14 07:33 | Diagnostic Imaging Report ---
CHEST X-RAY: AP view INDICATION: Intubation COMPARISON: Chest x-ray earlier the same day FINDINGS: ET tube is in place with tip in the right mainstem bronchus. Chronic lung changes are seen with left basal atelectasis. No focal consolidation or effusions. Heart size is normal. IMPRESSION: ET tube with tip within the right mainstem bronchus. Recommend repositioning and pullback. Left basal atelectatic changes. No focal consolidation identified. Critical results relayed to the referring team on 12/14/2017 at 7:30 AM.
[2017-12-14] MEDS ORDERED: Probiotic Screen MC PRN (10:00)
--- NOTE | 2017-12-14 11:18 | General Progress Note ---
Subjective - Review of Systems Service Date: 12/14/17 Events since last encounter: labs ok to floor start clear liquids Objective - Results Result Diagrams: 12/14/17 04:22 12/14/17 04:22 Recent Labs: Laboratory Last Values WBC 12.1 Th/cmm (4.8-10.8) H D 12/14/17 04:22 RBC 5.07 Mil/cmm (3.80-5.20) 12/14/17 04:22 Hgb 15.6 gm/dL (12-16) 12/14/17 04:22 Hct 46.5 % (41.0-60) 12/14/17 04:22 MCV 91.5 fl (81-100) 12/14/17 04: MCH 30.7 pg (27.0-31.0) 12/14/17 04: MCHC Differential 33.5 pg (28.0-36.0) 12/14/17 04:22 RDW 13.6 % (11.5-20.0) 12/14/17 04:22 Plt Count 248 Th/cmm (150-400) 12/14/17 04:22 MPV 8.8 fl 12/14/17 04:22 Neutrophils % 52.3 % (40.0-80.0) 12/13/17 08:30 Band Neutrophils % 8 % (0-10) 12/14/17 04:22 Lymphocytes % 38.7 % (20.0-50.0) 12/13/17 08:30 Monocytes % 6.5 % (2.0-10.0) 12/13/17 08:30 Eosinophils % 1.2 % (0.0-5.0) 12/13/17 08:30 Basophils % 1.3 % (0.0-2.0) 12/13/17 08:30 Neutrophils (Manual) 78 % (40-80) 12/14/17 04:22 Lymphocytes 10 % (20-50) L 12/14/17 04:22 Monocytes 4 % (2-10) 12/14/17 04:22 PT 11.4 SECONDS (9.5-11.5) 12/13/17 08:30 INR 1.09 (0.5-1.4) 12/13/17 08:30 PTT (Actin FS) 26.7 SECONDS (26.0-38.0) 12/13/17 08:30 Specimen Source Arterial 12/13/17 15:09 Sample Site RB 12/13/17 15:09 pH 7.41 (7.35-7.45) 12/13/17 15:09 pCO2 39.0 mmHg (35.0-45.0) 12/13/17 15:09 pO2 128.0 mmHg (80.0-100.0) H 12/13/17 15:09 HCO3 25.1 mEq/L (20.0-26.0) 12/13/17 15:09 Base Excess 0.1 mEq/L (-3.0-3.0) 12/13/17 15:09 O2 Saturation 99.0 % (92.0-100.0) 12/13/17 15:09 Vent Rate 10 12/13/17 15:09 Inspired O2 50 12/13/17 15:09 Tidal Volume 500 12/13/17 15:09 PEEP 0 12/13/17 15:09 Pressure (ins/psv/peep) 10 12/13/17 15:09 Critical Value PW 12/13/17 15:09 Sodium 136 mEq/L (136-145) 12/14/17 04:22 Potassium 4.3 mEq/L (3.5-5.1) 12/14/17 04:22 Chloride 104 mEq/L (98-107) 12/14/17 04:22 Carbon Dioxide 22.4 mEq/L (21.0-31.0) 12/14/17 04:22 Anion Gap 13.9 (7.0-16.0) 12/14/17 04:22 BUN 21 mg/dL (7-25) 12/14/17 04:22 Creatinine 1.0 mg/dL (0.6-1.2) 12/14/17 04:22 Est GFR ( Amer) TNP 12/14/17 04:22 Est GFR (Non-Af Amer) TNP 12/14/17 04:22 BUN/Creatinine Ratio 21.0 12/14/17 04:22 Glucose 112 mg/dL (70-105) H 12/14/17 04:22 Calcium 8.5 mg/dL (8.6-10.3) L 12/14/17 04:22 Total Bilirubin 0.6 mg/dL (0.3-1.0) 12/14/17 04:22 AST 18 U/L (13-39) 12/14/17 04:22 ALT 10 U/L (7-52) 12/14/17 04:22 Alkaline Phosphatase 84 U/L (34-104) 12/14/17 04:22 Total Protein 5.7 gm/dL (6.0-8.3) L 12/14/17 04:22 Albumin 3.3 gm/dL (3.7-5.3) L 12/14/17 04:22 Globulin 2.4 gm/dL 12/14/17 04:22 Albumin/Globulin Ratio 1.4 (1.0-1.8) 12/14/17 04:22 Urine Source CLEAN C 12/13/17 10:05 Urine Color YELLOW 12/13/17 10:05 Urine Clarity CLEAR (CLEAR) 12/13/17 10:05 Urine pH 7.0 (4.6 - 8.0) 12/13/17 10:05 Ur Specific [place] 1.015 (1.005-1.030) 12/13/17 10:05 Urine Protein NEGATIVE mg/dL (NEGATIVE) 12/13/17 10:05 Urine Glucose (UA) NEGATIVE mg/dL (NEGATIVE) 12/13/17 10:05 Urine Ketones NEGATIVE mg/dL (NEGATIVE) 12/13/17 10:05 Urine Blood TRACE (NEGATIVE) 12/13/17 10:05 Urine Nitrate NEGATIVE (NEGATIVE) 12/13/17 10:05 Urine Bilirubin NEGATIVE (NEGATIVE) 12/13/17 10:05 Urine Urobilinogen 0.2 E.U./dL (0.2 - 1.0) 12/13/17 10:05 Ur Leukocyte Esterase SMALL (NEGATIVE) H 12/13/17 10:05 Urine RBC 2-5 /hpf (0-5) 12/13/17 10:05 Urine WBC 6-10 /hpf (0-5) H 12/13/17 10:05 Ur Epithelial Cells FEW /lpf (FEW) 12/13/17 10:05 Urine Bacteria FEW /hpf (NONE SEEN) 12/13/17 10:05 - Physical Exam Vitals and I&O: Vital Signs Temp 98.1 F 12/14/17 05:00 Pulse 75 12/14/17 07:00 Resp 21 12/14/17 07:00 BP 135/49 12/14/17 07:00 Pulse Ox 99 12/14/17 07:00 Intake & Output 12/13/17 12/14/17 12/14/17 18:59 06:59 18:59 Intake Total 100 1250 100 Output Total 360 180 Balance -260 1070 100 Weight (lbs) 44.906 kg 46.539 kg Intake: Intake, IV Amount 100 1250 100 Levofloxacin 750mg/150mL 150 750 mg In Premix Fluid 1 bag @ 100 mls/hr IV Q48H [facility] Rx#:[id number] Sodium Chloride 0.9% 1, 1000 000 ml @ 100 mls/hr IV . Q10H COUNTS INCLUDE 234 BEDS AT [facility] Rx#:[id number] metroNIDAZOLE 500mg/NS 100 100 100 100mL 500 mg In Premix Fluid 1 bag @ 100 mls/hr IV Q8H [facility] Rx#:[id number] Output: Drainage 160 30 Right Lower Abdomen 160 30 Urine 200 150 Other: # Voids 2 # Bowel Movements 0 Stool Characteristics Formed Brown Weight Source Bedscale Bedscale Active Medications: Current Medications Heparin Sodium (Porcine) (Heparin) 5,000 units SUBQ Q12HR [facility] Stop: 02/11/18 20:59 Last Admin: 12/14/17 09:28 Dose: 5,000 units Sodium Chloride (Nacl 0.9%) 1,000 mls @ 100 mls/hr IV .Q10H [facility] Stop: 02/11/18 14:29 Last Admin: 12/14/17 05:09 Dose: 100 mls/hr Metronidazole 500 mg/ (Miscellaneous) 100 mls @ 100 mls/hr IV Q8H [facility] Stop: 02/11/18 14:59 Last Infusion: 12/14/17 07:30 Dose: Infused Levofloxacin 750 mg/ (Miscellaneous) 150 mls @ 100 mls/hr IV Q48H [facility] Stop: 02/11/18 14:59 Last Infusion: 12/13/17 19:12 Dose: Infused Ketorolac Tromethamine (Toradol) 15 mg IVP Q6H PRN PRN Reason: Pain Stop: 12/18/17 14:59 Last Admin: 12/13/17 17:21 Dose: 15 mg Lactobacillus Rhamnosus (Culturelle 15b) 1 each PO DAILY [facility] Stop: 02/13/18 08:59 Miscellaneous (Vte Chemical Prophylaxis Screen/ Admission) 1 ea [facility] PRN PRN PRN Reason: PROTOCOL Stop: 02/11/18 12:33 Miscellaneous (Probiotic Screen) 1 ea MC PRN PRN PRN Reason: PROTOCOL Stop: 02/12/18 09:59 Morphine Sulfate (Morphine) 2 mg IVP Q4HR PRN PRN Reason: Abdominal Pain Stop: 02/11/18 14:53 Last Admin: 12/13/17 16:36 Dose: 2 mg - Procedures Procedures: Procedures Procedure Code Date BYPASS DESCENDING COLON TO CUTANEOUS, OPEN APPROACH [id number] 08/16/17 COLONOSCOPY AND BIOPSY 29540 08/16/17 EXCISION OF CECUM, ENDO, DIAGN [id number] 08/16/17 EXCISION OF DESCENDING COLON, OPEN APPROACH 4CCP1OL 08/16/17 EXCISION OF RECTUM, ENDO, DIAGN [id number] 08/16/17 EXCISION OF RECTUM, OPEN APPROACH 5UQT1ZL 08/16/17 EXCISION OF SIGMOID COLON, OPEN APPROACH 4MCQ1VC 08/16/17 EXCISION OF TRANSVERSE COLON, ENDO, DIAGN [id number] 08/16/17 RELEASE STOMACH, OPEN APPROACH [id number] 08/16/17 REPAIR RECTUM, OPEN APPROACH [id number] 08/16/17
--- NOTE | 2017-12-14 12:30 | General Progress Note ---
Subjective - Review of Systems Events since last encounter: in no acute distress Objective - Results Result Diagrams: 12/14/17 04:12/14/17 04:22 Recent Labs: Laboratory Last Values WBC 12.1 Th/cmm (4.8-10.8) H D 12/14/17 04:22 RBC 5.07 Mil/cmm (3.80-5.20) 12/14/17 04:22 Hgb 15.6 gm/dL (12-16) 12/14/17 04: Hct 46.5 % (41.0-60) 12/14/17 04: MCV 91.5 fl (81-100) 12/14/17 04: MCH 30.7 pg (27.0-31.0) 12/14/17 04: MCHC Differential 33.5 pg (28.0-36.0) 12/14/17 04: RDW 13.6 % (11.5-20.0) 12/14/17 04: Plt Count 248 Th/cmm (150-400) 12/14/17 04:22 MPV 8.8 fl 12/14/17 04:22 Neutrophils % 52.3 % (40.0-80.0) 12/13/17 08:30 Band Neutrophils % 8 % (0-10) 12/14/17 04: Lymphocytes % 38.7 % (20.0-50.0) 12/13/17 08:30 Monocytes % 6.5 % (2.0-10.0) 12/13/17 08:30 Eosinophils % 1.2 % (0.0-5.0) 12/13/17 08:30 Basophils % 1.3 % (0.0-2.0) 12/13/17 08:30 Neutrophils (Manual) 78 % (40-80) 12/14/17 04: Lymphocytes 10 % (20-50) L 12/14/17 04: Monocytes 4 % (2-10) 12/14/17 04:22 PT 11.4 SECONDS (9.5-11.5) 12/13/17 08:30 INR 1.09 (0.5-1.4) 12/13/17 08:30 PTT (Actin FS) 26.7 SECONDS (26.0-38.0) 12/13/17 08:30 Specimen Source Arterial 12/13/17 15:09 Sample Site RB 12/13/17 15:09 pH 7.41 (7.35-7.45) 12/13/17 15:09 pCO2 39.0 mmHg (35.0-45.0) 12/13/17 15:09 pO2 128.0 mmHg (80.0-100.0) H 12/13/17 15:09 HCO3 25.1 mEq/L (20.0-26.0) 12/13/17 15:09 Base Excess 0.1 mEq/L (-3.0-3.0) 12/13/17 15:09 O2 Saturation 99.0 % (92.0-100.0) 12/13/17 15:09 Vent Rate 10 12/13/17 15:09 Inspired O2 50 12/13/17 15:09 Tidal Volume 500 12/13/17 15:09 PEEP 0 12/13/17 15:09 Pressure (ins/psv/peep) 10 12/13/17 15:09 Critical Value PW 12/13/17 15:09 Sodium 136 mEq/L (136-145) 12/14/17 04:22 Potassium 4.3 mEq/L (3.5-5.1) 12/14/17 04:22 Chloride 104 mEq/L (98-107) 12/14/17 04:22 Carbon Dioxide 22.4 mEq/L (21.0-31.0) 12/14/17 04:22 Anion Gap 13.9 (7.0-16.0) 12/14/17 04:22 BUN 21 mg/dL (7-25) 12/14/17 04:22 Creatinine 1.0 mg/dL (0.6-1.2) 12/14/17 04:22 Est GFR ( Amer) TNP 12/14/17 04:22 Est GFR (Non-Af Amer) TNP 12/14/17 04:22 BUN/Creatinine Ratio 21.0 12/14/17 04:22 Glucose 112 mg/dL (70-105) H 12/14/17 04:22 Calcium 8.5 mg/dL (8.6-10.3) L 12/14/17 04:22 Total Bilirubin 0.6 mg/dL (0.3-1.0) 12/14/17 04:22 AST 18 U/L (13-39) 12/14/17 04:22 ALT 10 U/L (7-52) 12/14/17 04:22 Alkaline Phosphatase 84 U/L (34-104) 12/14/17 04:22 Total Protein 5.7 gm/dL (6.0-8.3) L 12/14/17 04:22 Albumin 3.3 gm/dL (3.7-5.3) L 12/14/17 04:22 Globulin 2.4 gm/dL 12/14/17 04:22 Albumin/Globulin Ratio 1.4 (1.0-1.8) 12/14/17 04:22 Urine Source CLEAN C 12/13/17 10:05 Urine Color YELLOW 12/13/17 10:05 Urine Clarity CLEAR (CLEAR) 12/13/17 10:05 Urine pH 7.0 (4.6 - 8.0) 12/13/17 10:05 Ur Specific [place] 1.015 (1.005-1.030) 12/13/17 10:05 Urine Protein NEGATIVE mg/dL (NEGATIVE) 12/13/17 10:05 Urine Glucose (UA) NEGATIVE mg/dL (NEGATIVE) 12/13/17 10:05 Urine Ketones NEGATIVE mg/dL (NEGATIVE) 12/13/17 10:05 Urine Blood TRACE (NEGATIVE) 12/13/17 10:05 Urine Nitrate NEGATIVE (NEGATIVE) 12/13/17 10:05 Urine Bilirubin NEGATIVE (NEGATIVE) 12/13/17 10:05 Urine Urobilinogen 0.2 E.U./dL (0.2 - 1.0) 12/13/17 10:05 Ur Leukocyte Esterase SMALL (NEGATIVE) H 12/13/17 10:05 Urine RBC 2-5 /hpf (0-5) 12/13/17 10:05 Urine WBC 6-10 /hpf (0-5) H 12/13/17 10:05 Ur Epithelial Cells FEW /lpf (FEW) 12/13/17 10:05 Urine Bacteria FEW /hpf (NONE SEEN) 12/13/17 10:05 - Physical Exam Vitals and I&O: Vital Signs Temp 97.6 F 12/14/17 08:00 Pulse 87 12/14/17 11:00 Resp 21 12/14/17 11:00 BP 130/60 05/22/18 11:00 Pulse Ox 95 12/14/17 11:00 Intake & Output 12/13/17 12/14/17 12/14/17 18:59 06:59 18:59 Intake Total 100 1250 100 Output Total 360 180 Balance -260 1070 100 Weight (lbs) 44.906 kg 46.539 kg Intake: Intake, IV Amount 100 1250 100 Levofloxacin 750mg/150mL 150 750 mg In Premix Fluid 1 bag @ 100 mls/hr IV Q48H [facility] Rx#:[id number] Sodium Chloride 0.9% 1, 1000 000 ml @ 100 mls/hr IV . Q10H [facility] Rx#:[id number] metroNIDAZOLE 500mg/NS 100 100 100 100mL 500 mg In Premix Fluid 1 bag @ 100 mls/hr IV Q8H [facility] Rx#:[id number] Output: Drainage 160 30 Right Lower Abdomen 160 30 Urine 200 150 Other: # Voids 2 # Bowel Movements 0 Stool Characteristics Formed Brown Weight Source Bedscale Bedscale Active Medications: Current Medications Heparin Sodium (Porcine) (Heparin) 5,000 units SUBQ Q12HR [facility] Stop: 02/11/18 20:59 Last Admin: 12/14/17 09:28 Dose: 5,000 units Sodium Chloride (Nacl 0.9%) 1,000 mls @ 100 mls/hr IV .Q10H [facility] Stop: 02/11/18 14:29 Last Admin: 12/14/17 05:09 Dose: 100 mls/hr Metronidazole 500 mg/ (Miscellaneous) 100 mls @ 100 mls/hr IV Q8H [facility] Stop: 02/11/18 14:59 Last Infusion: 12/14/17 07:30 Dose: Infused Levofloxacin 750 mg/ (Miscellaneous) 150 mls @ 100 mls/hr IV Q48H [facility] Stop: 02/11/18 14:59 Last Infusion: 12/13/17 19:12 Dose: Infused Ketorolac Tromethamine (Toradol) 15 mg IVP Q6H PRN PRN Reason: Pain Stop: 12/18/17 14:59 Last Admin: 12/13/17 17:21 Dose: 15 mg Lactobacillus Rhamnosus (Culturelle 15b) 1 each PO DAILY [facility] Stop: 02/13/18 08:59 Miscellaneous (Vte Chemical Prophylaxis Screen/ Admission) 1 ea [facility] PRN PRN PRN Reason: PROTOCOL Stop: 02/11/18 12:33 Miscellaneous (Probiotic Screen) 1 ea MC PRN PRN PRN Reason: PROTOCOL Stop: 02/12/18 09:59 Morphine Sulfate (Morphine) 2 mg IVP Q4HR PRN PRN Reason: Abdominal Pain Stop: 02/11/18 14:53 Last Admin: 12/13/17 16:36 Dose: 2 mg - Procedures Procedures: Procedures Procedure Code Date BYPASS DESCENDING COLON TO CUTANEOUS, OPEN APPROACH [id number] 08/16/17 COLONOSCOPY AND BIOPSY 12037 08/16/17 EXCISION OF CECUM, ENDO, DIAGN 3TRX6TV 08/16/17 EXCISION OF DESCENDING COLON, OPEN APPROACH 7MSF1TY 08/16/17 EXCISION OF RECTUM, ENDO, DIAGN 6MWE4WP 08/16/17 EXCISION OF RECTUM, OPEN APPROACH 1HPT4KD 08/16/17 EXCISION OF SIGMOID COLON, OPEN APPROACH [id number] 08/16/17 EXCISION OF TRANSVERSE COLON, ENDO, DIAGN [id number] 08/16/17 RELEASE STOMACH, OPEN APPROACH [id number] 08/16/17 REPAIR RECTUM, OPEN APPROACH [id number] 08/16/17
[2017-12-14] MEDS: Morphine Sulfate 4 mg/mL 1mL Syr IVP PRN (13:33)
--- NOTE | 2017-12-14 15:47 | Operative Report ---
DATE OF SURGERY: 12/13/2017 PREOPERATIVE DIAGNOSES: Status post ripstein procedure with diverting colostomy. POSTOPERATIVE DIAGNOSES: Status post ripstein procedure with diverting colostomy. OPERATION DONE: Exploratory laparotomy with: 1. Low sigmoid anastomosis end-to-end. 2. Resection and closure of colostomy stoma. 3. Lysis of dense adhesions. SURGEON: Erik Everett M.D. CUSTOMER SUPPORT ASSOCIATE: Dr. Felder. ANESTHESIA: General. ANESTHESIOLOGIST: Dr. Wilson. ESTIMATED BLOOD LOSS: 30 mL. INDICATIONS FOR SURGERY: The patient had a diverting colostomy following which waldron procedure for rectal prolapse 4 months ago. DESCRIPTION OF PROCEDURE: The patient was given general anesthesia. The abdomen was prepped with Betadine and draped in appropriate manner. A midline incision was made following the previous incision. Bleeders were electrocoagulated and dense adhesions to the anterior abdominal wall was lysed bluntly and sharply. Also, adhesions in the pelvis with a small bowel, which was lysed. The descending colon was then transected at the level of the abdominal wall. Bleeders were controlled. The proximal end of the sigmoid colon, which had been sutured posteriorly to the sacrum for the ripstein procedure was then opened. The descending colon was then brought down for the end-to-end anastomosis following placement of clamp to prevent spillage of content. Sutures of 3-0 interrupted silk was used to affect the anastomosis. Cultures were taken of the open colon. Betadine was used to sterilize the anastomotic site. Following release of the occluding clamp the anastomosis was found to be satisfactory. The mesentery was sutured to the lateral aspect of the abdominal wall to prevent internal herniation. A Liborio drain was then placed in the pelvis and the abdominal incision was closed with running suture of #1 PDS and the skin was closed with a 4-0 Vicryl. The ostomy site was closed with running suture of #1 Vicryl. Subcutaneous tissue closed with 3-0 Vicryl and the skin with subcuticular suture of 4-0 Vicryl. The lesion was placed over this. The patient tolerated the procedure well. JOB# [id number]
[2017-12-14] MEDS ORDERED: Morphine Sulfate 4 mg/mL 1mL Syr IVP ONE (16:14)
[2017-12-15 05:08] LABS: LYMPHOCYTE ABSOLUTE 0.9 Th/cmm (1.5-3.0); RED CELL DISTRIBUTION WIDTH 13.6 % (11.5-20.0)
[2017-12-15 05:13] LABS: % EOSINOPHILS 0.6 % (0.0-5.0); % LYMPHOCYTES 13.1 % (20.0-50.0); % NEUTROPHILS 79.3 % (40.0-80.0); HEMATOCRIT 45.7 % (41.0-60); HEMOGLOBIN 15.6 gm/dL (12-16); MEAN CELL VOLUME 91.4 fl (81-100); MEAN CORPUSCULAR HEMOGLOBIN 31.3 pg (27.0-31.0); MEAN CORPUSCULAR HGB CONC 34.3 pg (28.0-36.0); MEAN PLATELET VOLUME 9.2 fl; MONOCYTE ABSOLUTE 0.5 Th/cmm (0.3-1.0); NEUTROPHILE ABSOLUTE 5.6 Th/cmm (1.8-8.0); PLATELET COUNT 239 Th/cmm (150-400); RED BLOOD COUNT 4.99 Mil/cmm (3.80-5.20)
[2017-12-15 05:53] LABS: ALB/GLOB RATIO 1.1 (1.0-1.8); ALBUMIN 2.8 gm/dL (3.7-5.3); ALKALINE PHOSPHATASE 76 U/L (34-104); ANION GAP 12.3 (7.0-16.0); BILIRUBIN,TOTAL 0.5 mg/dL (0.3-1.0); BUN - UREA NITROGEN 27 mg/dL (7-25); CALCIUM SERUM 8.4 mg/dL (8.6-10.3); CHLORIDE 106 mEq/L (98-107); CREATININE - SERUM 1.2 mg/dL (0.6-1.2); GLUCOSE 115 mg/dL (70-105); POTASSIUM SERUM 4.3 mEq/L (3.5-5.1); SGOT 20 U/L (13-39); SGPT/ALT 9 U/L (7-52); SODIUM SERUM 134 mEq/L (136-145); TOTAL PROTEIN,SERUM 5.3 gm/dL (6.0-8.3)
[2017-12-15] MEDS: metroNIDAZOLE 500mg/NS 100mL 500 MG in Premix Fluid 1 BAG IV SCH ×3 (06:32→23:20)
--- NOTE | 2017-12-15 08:26 | General Progress Note ---
Subjective - Review of Systems Service Date: 12/15/17 Events since last encounter: labs ok tolerating liquids claims [place], on Benadryl Objective - Results Result Diagrams: 12/15/17 04:26 12/15/17 04:26 Recent Labs: Laboratory Last Values WBC 7.0 Th/cmm (4.8-10.8) 12/15/17 04:26 RBC 4.99 Mil/cmm (3.80-5.20) 12/15/17 04:26 Hgb 15.6 gm/dL (12-16) 12/15/17 04:26 Hct 45.7 % (41.0-60) 12/15/17 04: MCV 91.4 fl (81-100) 12/15/17 04:26 MCH 31.3 pg (27.0-31.0) H 12/15/17 04:26 MCHC Differential 34.3 pg (28.0-36.0) 12/15/17 04:26 RDW 13.6 % (11.5-20.0) 12/15/17 04:26 Plt Count 239 Th/cmm (150-400) 12/15/17 04:26 MPV 9.2 fl 12/15/17 04:26 Neutrophils % 79.3 % (40.0-80.0) 12/15/17 04:26 Band Neutrophils % 8 % (0-10) 12/14/17 04:22 Lymphocytes % 13.1 % (20.0-50.0) L 12/15/17 04:26 Monocytes % 7.0 % (2.0-10.0) 12/15/17 04:26 Eosinophils % 0.6 % (0.0-5.0) 12/15/17 04:26 Basophils % 0.0 % (0.0-2.0) 12/15/17 04:26 Neutrophils (Manual) 78 % (40-80) 12/14/17 04: Lymphocytes 10 % (20-50) L 12/14/17 04:22 Monocytes 4 % (2-10) 12/14/17 04:22 PT 11.4 SECONDS (9.5-11.5) 12/13/17 08:30 INR 1.09 (0.5-1.4) 12/13/17 08:30 PTT (Actin FS) 26.7 SECONDS (26.0-38.0) 12/13/17 08:30 Specimen Source Arterial 12/13/17 15:09 Sample Site RB 12/13/17 15:09 pH 7.41 (7.35-7.45) 12/13/17 15:09 pCO2 39.0 mmHg (35.0-45.0) 12/13/17 15:09 pO2 128.0 mmHg (80.0-100.0) H 12/13/17 15:09 HCO3 25.1 mEq/L (20.0-26.0) 12/13/17 15:09 Base Excess 0.1 mEq/L (-3.0-3.0) 12/13/17 15:09 O2 Saturation 99.0 % (92.0-100.0) 12/13/17 15:09 Vent Rate 10 12/13/17 15:09 Inspired O2 50 12/13/17 15:09 Tidal Volume 500 12/13/17 15:09 PEEP 0 12/13/17 15:09 Pressure (ins/psv/peep) 10 12/13/17 15:09 Critical Value PW 12/13/17 15:09 Sodium 134 mEq/L (136-145) L 12/15/17 04:26 Potassium 4.3 mEq/L (3.5-5.1) 12/15/17 04:26 Chloride 106 mEq/L (98-107) 12/15/17 04:26 Carbon Dioxide 20.0 mEq/L (21.0-31.0) L 12/15/17 04:26 Anion Gap 12.3 (7.0-16.0) 12/15/17 04:26 BUN 27 mg/dL (7-25) H 12/15/17 04:26 Creatinine 1.2 mg/dL (0.6-1.2) 12/15/17 04:26 Est GFR ( Amer) TNP 12/15/17 04:26 Est GFR (Non-Af Amer) TNP 12/15/17 04:26 BUN/Creatinine Ratio 22.5 12/15/17 04:26 Glucose 115 mg/dL (70-105) H 12/15/17 04:26 Calcium 8.4 mg/dL (8.6-10.3) L 12/15/17 04:26 Total Bilirubin 0.5 mg/dL (0.3-1.0) 12/15/17 04:26 AST 20 U/L (13-39) 12/15/17 04:26 ALT 9 U/L (7-52) 12/15/17 04:26 Alkaline Phosphatase 76 U/L (34-104) 12/15/17 04:26 Total Protein 5.3 gm/dL (6.0-8.3) L 12/15/17 04:26 Albumin 2.8 gm/dL (3.7-5.3) L 12/15/17 04:26 Globulin 2.5 gm/dL 12/15/17 04:26 Albumin/Globulin Ratio 1.1 (1.0-1.8) 12/15/17 04:26 Urine Source CLEAN C 12/13/17 10:05 Urine Color YELLOW 12/13/17 10:05 Urine Clarity CLEAR (CLEAR) 12/13/17 10:05 Urine pH 7.0 (4.6 - 8.0) 12/13/17 10:05 Ur Specific [place] 1.015 (1.005-1.030) 12/13/17 10:05 Urine Protein NEGATIVE mg/dL (NEGATIVE) 12/13/17 10:05 Urine Glucose (UA) NEGATIVE mg/dL (NEGATIVE) 12/13/17 10:05 Urine Ketones NEGATIVE mg/dL (NEGATIVE) 12/13/17 10:05 Urine Blood TRACE (NEGATIVE) 12/13/17 10:05 Urine Nitrate NEGATIVE (NEGATIVE) 12/13/17 10:05 Urine Bilirubin NEGATIVE (NEGATIVE) 12/13/17 10:05 Urine Urobilinogen 0.2 E.U./dL (0.2 - 1.0) 12/13/17 10:05 Ur Leukocyte Esterase SMALL (NEGATIVE) H 12/13/17 10:05 Urine RBC 2-5 /hpf (0-5) 12/13/17 10:05 Urine WBC 6-10 /hpf (0-5) H 12/13/17 10:05 Ur Epithelial Cells FEW /lpf (FEW) 12/13/17 10:05 Urine Bacteria FEW /hpf (NONE SEEN) 12/13/17 10:05 - Physical Exam Vitals and I&O: Vital Signs Temp 98.1 F 12/15/17 00:00 Pulse 76 05/23/18 04:00 Resp 22 12/15/17 04:00 BP 146/75 12/15/17 04:00 Pulse Ox 94 12/15/17 04:00 Intake & Output 12/14/17 12/15/17 12/15/17 18:59 06:59 18:59 Intake Total 600 300 Output Total 580 Balance 600 -280 Weight (lbs) 46.539 kg 46.539 kg Intake: Intake, IV Amount 200 100 metroNIDAZOLE 500mg/NS 200 100 100mL 500 mg In Premix Fluid 1 bag @ 100 mls/hr IV Q8H [facility] Rx#:[id number] Oral 400 200 Output: Drainage 30 Right Lower Abdomen 30 Urine 550 Other: Stool Characteristics Formed Brown Weight Source Bedscale Bedscale Active Medications: Current Medications Diphenhydramine HCl (Benadryl 50 Mg/Ml) 25 mg IVP Q8H PRN PRN Reason: itchiness Stop: 02/12/18 21:54 Last Admin: 12/14/17 22:11 Dose: 25 mg Heparin Sodium (Porcine) (Heparin) 5,000 units SUBQ Q12HR [facility] Stop: 02/11/18 20:59 Last Admin: 12/14/17 21:28 Dose: 5,000 units Sodium Chloride (Nacl 0.9%) 1,000 mls @ 100 mls/hr IV .Q10H [facility] Stop: 02/11/18 14:29 Last Admin: 12/14/17 05:09 Dose: 100 mls/hr Metronidazole 500 mg/ (Miscellaneous) 100 mls @ 100 mls/hr IV Q8H [facility] Stop: 02/11/18 14:59 Last Admin: 12/15/17 06:32 Dose: 100 mls/hr Levofloxacin 750 mg/ (Miscellaneous) 150 mls @ 100 mls/hr IV Q48H [facility] Stop: 02/11/18 14:59 Last Infusion: 12/13/17 19:12 Dose: Infused Ketorolac Tromethamine (Toradol) 15 mg IVP Q6H PRN PRN Reason: Pain Stop: 12/18/17 14:59 Last Admin: 12/14/17 12:38 Dose: 15 mg Lactobacillus Rhamnosus (Culturelle 15b) 1 each PO DAILY GALEN Stop: 02/13/18 08:59 Miscellaneous (Vte Chemical Prophylaxis Screen/ Admission) 1 ea MC PRN PRN PRN Reason: PROTOCOL Stop: 02/11/18 12:33 Miscellaneous (Probiotic Screen) 1 ea MC PRN PRN PRN Reason: PROTOCOL Stop: 02/12/18 09:59 Morphine Sulfate (Morphine) 2 mg IVP Q4HR PRN PRN Reason: Abdominal Pain Stop: 02/11/18 14:53 Last Admin: 12/14/17 13:33 Dose: 2 mg - Procedures Procedures: Procedures Procedure Code Date BYPASS DESCENDING COLON TO CUTANEOUS, OPEN APPROACH [id number] 08/16/17 COLONOSCOPY AND BIOPSY 84740 08/16/17 EXCISION OF CECUM, ENDO, DIAGN 5FTV2HW 08/16/17 EXCISION OF DESCENDING COLON, OPEN APPROACH [id number] 08/16/17 EXCISION OF RECTUM, ENDO, DIAGN [id number] 08/16/17 EXCISION OF RECTUM, OPEN APPROACH 3KDT6VN 08/16/17 EXCISION OF SIGMOID COLON, OPEN APPROACH 1BIQ2EX 08/16/17 EXCISION OF TRANSVERSE COLON, ENDO, DIAGN 8LDR2EC 08/16/17 RELEASE STOMACH, OPEN APPROACH [id number] 08/16/17 REPAIR RECTUM, OPEN APPROACH [id number] 08/16/17
[2017-12-15] MEDS: Lactobacillus Rhamnosus GG 15 Billion CFU CAP.SPRINK PO SCH (08:34)
--- NOTE | 2017-12-15 14:09 | Pathology Report ---
[id number] Collection date: 12/13/2017 Surgeon: Dr. David Valencia Specimen Description: Colostomy closure Gross Description: Received in formalin is a short segment of colon measuring 10 cm in length x up to 2.8 cm in diameter. The outer surface shows a small amount of attached fibrofatty tissue with focal adhesions noted. Opening the specimen shows a segment of colon with folded mucosa and containing abundant stool. There are no focal lesions appreciated. Sales Representative Sales Manager sections are submitted in three cassettes labeled A1 to A3. Microscopic Description: The histologic sections show colon with areas of mild nonspecific chronic inflammation consisting of slightly increased numbers of lymphocytes and plasma cells. Focal adhesions are also seen on the outer serosal surface of the specimen. Diagnosis: Short segment of colon showing mild chronic inflammation, compatible with the clinical impression of colostomy closure. [facility]# [id number] JENNA
[2017-12-15] MEDS: Levofloxacin 750mg/150mL 750 MG in Premix Fluid 1 BAG IV SCH (14:54)
--- NOTE | 2017-12-15 16:03 | General Progress Note ---
Subjective - Review of Systems Events since last encounter: patient awake in no distress c/o itchiness Objective - Results Result Diagrams: 12/15/17 04:26 12/15/17 04:26 Recent Labs: Laboratory Last Values WBC 7.0 Th/cmm (4.8-10.8) 12/15/17 04:26 RBC 4.99 Mil/cmm (3.80-5.20) 12/15/17 04:26 Hgb 15.6 gm/dL (12-16) 12/15/17 04:26 Hct 45.7 % (41.0-60) 12/15/17 04:26 MCV 91.4 fl (81-100) 12/15/17 04:26 MCH 31.3 pg (27.0-31.0) H 12/15/17 04:26 MCHC Differential 34.3 pg (28.0-36.0) 12/15/17 04:26 RDW 13.6 % (11.5-20.0) 12/15/17 04:26 Plt Count 239 Th/cmm (150-400) 12/15/17 04:26 MPV 9.2 fl 12/15/17 04:26 Neutrophils % 79.3 % (40.0-80.0) 12/15/17 04:26 Band Neutrophils % 8 % (0-10) 12/14/17 04:22 Lymphocytes % 13.1 % (20.0-50.0) L 12/15/17 04:26 Monocytes % 7.0 % (2.0-10.0) 12/15/17 04:26 Eosinophils % 0.6 % (0.0-5.0) 12/15/17 04:26 Basophils % 0.0 % (0.0-2.0) 12/15/17 04:26 Neutrophils (Manual) 78 % (40-80) 12/14/17 04:22 Lymphocytes 10 % (20-50) L 12/14/17 04:22 Monocytes 4 % (2-10) 12/14/17 04:22 PT 11.4 SECONDS (9.5-11.5) 12/13/17 08:30 INR 1.09 (0.5-1.4) 12/13/17 08:30 PTT (Actin FS) 26.7 SECONDS (26.0-38.0) 12/13/17 08:30 Specimen Source Arterial 12/13/17 15:09 Sample Site RB 12/13/17 15:09 pH 7.41 (7.35-7.45) 12/13/17 15:09 pCO2 39.0 mmHg (35.0-45.0) 12/13/17 15:09 pO2 128.0 mmHg (80.0-100.0) H 12/13/17 15:09 HCO3 25.1 mEq/L (20.0-26.0) 12/13/17 15:09 Base Excess 0.1 mEq/L (-3.0-3.0) 12/13/17 15:09 O2 Saturation 99.0 % (92.0-100.0) 12/13/17 15:09 Vent Rate 10 12/13/17 15:09 Inspired O2 50 12/13/17 15:09 Tidal Volume 500 12/13/17 15:09 PEEP 0 12/13/17 15:09 Pressure (ins/psv/peep) 10 12/13/17 15:09 Critical Value PW 12/13/17 15:09 Sodium 134 mEq/L (136-145) L 12/15/17 04:26 Potassium 4.3 mEq/L (3.5-5.1) 12/15/17 04:26 Chloride 106 mEq/L (98-107) 12/15/17 04:26 Carbon Dioxide 20.0 mEq/L (21.0-31.0) L 12/15/17 04:26 Anion Gap 12.3 (7.0-16.0) 12/15/17 04:26 BUN 27 mg/dL (7-25) H 12/15/17 04:26 Creatinine 1.2 mg/dL (0.6-1.2) 12/15/17 04:26 Est GFR ( Amer) TNP 12/15/17 04:26 Est GFR (Non-Af Amer) TNP 12/15/17 04:26 BUN/Creatinine Ratio 22.5 12/15/17 04:26 Glucose 115 mg/dL (70-105) H 12/15/17 04:26 Calcium 8.4 mg/dL (8.6-10.3) L 12/15/17 04:26 Total Bilirubin 0.5 mg/dL (0.3-1.0) 12/15/17 04:26 AST 20 U/L (13-39) 12/15/17 04:26 ALT 9 U/L (7-52) 12/15/17 04:26 Alkaline Phosphatase 76 U/L (34-104) 12/15/17 04:26 Total Protein 5.3 gm/dL (6.0-8.3) L 12/15/17 04:26 Albumin 2.8 gm/dL (3.7-5.3) L 12/15/17 04:26 Globulin 2.5 gm/dL 12/15/17 04:26 Albumin/Globulin Ratio 1.1 (1.0-1.8) 12/15/17 04:26 Urine Source CLEAN C 12/13/17 10:05 Urine Color YELLOW 12/13/17 10:05 Urine Clarity CLEAR (CLEAR) 12/13/17 10:05 Urine pH 7.0 (4.6 - 8.0) 12/13/17 10:05 Ur Specific [place] 1.015 (1.005-1.030) 12/13/17 10:05 Urine Protein NEGATIVE mg/dL (NEGATIVE) 12/13/17 10:05 Urine Glucose (UA) NEGATIVE mg/dL (NEGATIVE) 12/13/17 10:05 Urine Ketones NEGATIVE mg/dL (NEGATIVE) 12/13/17 10:05 Urine Blood TRACE (NEGATIVE) 12/13/17 10:05 Urine Nitrate NEGATIVE (NEGATIVE) 12/13/17 10:05 Urine Bilirubin NEGATIVE (NEGATIVE) 12/13/17 10:05 Urine Urobilinogen 0.2 E.U./dL (0.2 - 1.0) 12/13/17 10:05 Ur Leukocyte Esterase SMALL (NEGATIVE) H 12/13/17 10:05 Urine RBC 2-5 /hpf (0-5) 12/13/17 10:05 Urine WBC 6-10 /hpf (0-5) H 12/13/17 10:05 Ur Epithelial Cells FEW /lpf (FEW) 12/13/17 10:05 Urine Bacteria FEW /hpf (NONE SEEN) 12/13/17 10:05 - Physical Exam Vitals and I&O: Vital Signs Temp 98.1 F 12/15/17 12:00 Pulse 106 05/23/18 14:54 Resp 27 12/15/17 12:00 BP 193/109 12/15/17 14:54 Pulse Ox 98 12/15/17 12:00 Intake & Output 12/14/17 12/15/17 12/15/17 18:59 06:59 18:59 Intake Total 600 300 100 Output Total 580 Balance 600 -280 100 Weight (lbs) 46.539 kg 46.539 kg Intake: Intake, IV Amount 200 100 100 metroNIDAZOLE 500mg/NS 200 100 100 100mL 500 mg In Premix Fluid 1 bag @ 100 mls/hr IV Q8H [facility] Rx#:[id number] Oral 400 200 Output: Drainage 30 Right Lower Abdomen 30 Urine 550 Other: Stool Characteristics Formed Brown Weight Source Bedscale Bedscale Active Medications: Current Medications Amlodipine Besylate (Norvasc) 10 mg PO DAILY [facility] Stop: 02/13/18 14:29 Last Admin: 12/15/17 14:53 Dose: 10 mg Diphenhydramine HCl (Benadryl 50 Mg/Ml) 25 mg IVP Q8H PRN PRN Reason: itchiness Stop: 02/12/18 21:54 Last Admin: 12/15/17 08:34 Dose: 25 mg Heparin Sodium (Porcine) (Heparin) 5,000 units SUBQ Q12HR [facility] Stop: 02/11/18 20:59 Last Admin: 12/15/17 08:34 Dose: 5,000 units Sodium Chloride (Nacl 0.9%) 1,000 mls @ 100 mls/hr IV .Q10H [facility] Stop: 02/11/18 14:29 Last Admin: 12/14/17 05:09 Dose: 100 mls/hr Metronidazole 500 mg/ (Miscellaneous) 100 mls @ 100 mls/hr IV Q8H [facility] Stop: 02/11/18 14:59 Last Admin: 12/15/17 15:00 Dose: 100 mls/hr Levofloxacin 750 mg/ (Miscellaneous) 150 mls @ 100 mls/hr IV Q48H [facility] Stop: 02/11/18 14:59 Last Admin: 12/15/17 14:54 Dose: 100 mls/hr Ketorolac Tromethamine (Toradol) 15 mg IVP Q6H PRN PRN Reason: Pain Stop: 12/18/17 14:59 Last Admin: 12/14/17 12:38 Dose: 15 mg Lactobacillus Rhamnosus (Culturelle 15b) 1 each PO DAILY [facility] Stop: 02/13/18 08:59 Last Admin: 12/15/17 08:34 Dose: 1 each Losartan Potassium (Cozaar) 100 mg PO DAILY [facility] Stop: 02/13/18 14:29 Last Admin: 12/15/17 14:54 Dose: 100 mg Miscellaneous (Vte Chemical Prophylaxis Screen/ Admission) 1 [facility] PRN PRN PRN Reason: PROTOCOL Stop: 02/11/18 12:33 Miscellaneous (Probiotic Screen) 1 [facility] PRN PRN PRN Reason: PROTOCOL Stop: 02/12/18 09:59 Morphine Sulfate (Morphine) 2 mg IVP Q4HR PRN PRN Reason: Abdominal Pain Stop: 02/11/18 14:53 Last Admin: 12/14/17 13:33 Dose: 2 mg Mupirocin (Bactroban Oint) 1 appl NS BID [facility] Stop: 12/20/17 09:01 - Procedures Procedures: Procedures Procedure Code Date BYPASS DESCENDING COLON TO CUTANEOUS, OPEN APPROACH [id number] 08/16/17 COLONOSCOPY AND BIOPSY 94223 08/16/17 EXCISION OF CECUM, ENDO, DIAGN [id number] 08/16/17 EXCISION OF DESCENDING COLON, OPEN APPROACH [id number] 08/16/17 EXCISION OF RECTUM, ENDO, DIAGN [id number] 08/16/17 EXCISION OF RECTUM, OPEN APPROACH [id number] 08/16/17 EXCISION OF SIGMOID COLON, OPEN APPROACH [id number] 08/16/17 EXCISION OF TRANSVERSE COLON, ENDO, DIAGN [id number] 08/16/17 RELEASE STOMACH, OPEN APPROACH [id number] 08/16/17 REPAIR RECTUM, OPEN APPROACH [id number] 08/16/17
--- NOTE | 2017-12-16 01:09 | Consultation ---
DATE OF CONSULTATION: 12/13/2017 DATE OF CONSULTATION: 12/13/[address] Patino. HISTORY AND PHYSICAL: This is an 87-year-old female patient who was brought to the hospital for rectal prolapse surgery including revision of the colostomy. The patient had uncontrolled hypertension. Hence, preop cardiac evaluation requested. PAST MEDICAL HISTORY: Hypertension, rectal prolapse, colostomy. FAMILY HISTORY: Unremarkable. SOCIAL HISTORY: No history of smoking, alcohol abuse. ALLERGIES: None. PHYSICAL EXAMINATION: VITAL SIGNS: Blood pressure 180/90, pulse 70, respirations 20. HEAD: Normocephalic. No lumps or bumps. EYES: Pupils equal, reactive to light. Fundi showing nicking, sclerae white, conjunctivae pink. NECK: Carotid 2+. Normal upstroke. JVD flat. Thyroid not palpable. Lymph nodes not palpable. CHEST: Shows increased AP diameter. No kyphosis, scoliosis. LUNGS: Bilateral bronchovesicular breath sounds. HEART: PMI fifth intercostal space with [id number] line. S1, S2. No S3. Soft S4. RECTAL: Prolapse. EXTREMITIES: No pedal edema. CLINICAL IMPRESSION: 1. Accelerated hypertension. We will give IV Vasotec prior to surgery. 2. Rectal prolapse and a colostomy. 3. Osteoporosis. PLAN: The patient will be cleared for surgery once the blood pressure is controlled with Vasotec. JOB# [id number]
[2017-12-16] MEDS ORDERED: Pantoprazole 40 mg EC Tab PO SCH ×2 (03:11→07:30)
[2017-12-16] MEDS: Pantoprazole 40 mg EC Tab PO SCH ×2 (03:30→08:57)
[2017-12-16 03:34] LABS: % EOSINOPHILS 0.6 % (0.0-5.0); % MONOCYTES 7.2 % (2.0-10.0); % NEUTROPHILS 75.2 % (40.0-80.0); BASOPHILE ABSOLUTE 0.1 Th/cumm (0-0.2); HEMATOCRIT 45.8 % (41.0-60); HEMOGLOBIN 15.3 gm/dL (12-16); LYMPHOCYTE ABSOLUTE 1.3 Th/cmm (1.5-3.0); MEAN CELL VOLUME 92.5 fl (81-100); MEAN CORPUSCULAR HEMOGLOBIN 30.9 pg (27.0-31.0); MEAN CORPUSCULAR HGB CONC 33.4 pg (28.0-36.0); MEAN PLATELET VOLUME 8.4 fl; MONOCYTE ABSOLUTE 0.6 Th/cmm (0.3-1.0); PLATELET COUNT 250 Th/cmm (150-400); RED BLOOD COUNT 4.95 Mil/cmm (3.80-5.20); RED CELL DISTRIBUTION WIDTH 13.5 % (11.5-20.0)
[2017-12-16 03:42] LABS: ALB/GLOB RATIO 1.2 (1.0-1.8); ALKALINE PHOSPHATASE 70 U/L (34-104); ANION GAP 14.5 (7.0-16.0); BILIRUBIN,TOTAL 0.5 mg/dL (0.3-1.0); BUN - UREA NITROGEN 26 mg/dL (7-25); CALCIUM SERUM 8.3 mg/dL (8.6-10.3); CARBON DIOXIDE 17.1 mEq/L (21.0-31.0); CHLORIDE 108 mEq/L (98-107); CREATININE - SERUM 0.8 mg/dL (0.6-1.2); CREATININE KINASE 72 U/L (30-223); GLUCOSE 122 mg/dL (70-105); POTASSIUM SERUM 3.6 mEq/L (3.5-5.1); SGOT 19 U/L (13-39); SGPT/ALT 9 U/L (7-52); SODIUM SERUM 136 mEq/L (136-145); TOTAL PROTEIN,SERUM 5.5 gm/dL (6.0-8.3)
[2017-12-16] MEDS: Sodium Chloride 0.9% 1,000 ML IV SCH (05:59)
[2017-12-16] MEDS: metroNIDAZOLE 500mg/NS 100mL 500 MG in Premix Fluid 1 BAG IV SCH (06:51)
[2017-12-16] MEDS: Lactobacillus Rhamnosus GG 15 Billion CFU CAP.SPRINK PO SCH (08:58)
--- NOTE | 2017-12-16 09:18 | General Progress Note ---
Subjective - Review of Systems Service Date: 12/16/17 Events since last encounter: labs ok had BM minimal william drainage soft diet Objective - Results Result Diagrams: 12/16/17 03:15 12/16/17 03:15 Recent Labs: Laboratory Last Values WBC 8.0 Th/cmm (4.8-10.8) 12/16/17 03:15 RBC 4.95 Mil/cmm (3.80-5.20) 12/16/17 03:15 Hgb 15.3 gm/dL (12-16) 12/16/17 03:15 Hct 45.8 % (41.0-60) 12/16/17 03:15 MCV 92.5 fl (81-100) 12/16/17 03:15 MCH 30.9 pg (27.0-31.0) 12/16/17 03:15 MCHC Differential 33.4 pg (28.0-36.0) 12/16/17 03:15 RDW 13.5 % (11.5-20.0) 12/16/17 03:15 Plt Count 250 Th/cmm (150-400) 12/16/17 03:15 MPV 8.4 fl 12/16/17 03:15 Neutrophils % 75.2 % (40.0-80.0) 12/16/17 03:15 Band Neutrophils % 8 % (0-10) 12/14/17 04:22 Lymphocytes % 16.0 % (20.0-50.0) L 12/16/17 03:15 Monocytes % 7.2 % (2.0-10.0) 12/16/17 03:15 Eosinophils % 0.6 % (0.0-5.0) 12/16/17 03:15 Basophils % 1.0 % (0.0-2.0) 12/16/17 03:15 Neutrophils (Manual) 78 % (40-80) 12/14/17 04:22 Lymphocytes 10 % (20-50) L 12/14/17 04:22 Monocytes 4 % (2-10) 12/14/17 04:22 PT 11.4 SECONDS (9.5-11.5) 12/13/17 08:30 INR 1.09 (0.5-1.4) 12/13/17 08:30 PTT (Actin FS) 26.7 SECONDS (26.0-38.0) 12/13/17 08:30 Specimen Source Arterial 12/13/17 15:09 Sample Site RB 12/13/17 15:09 pH 7.41 (7.35-7.45) 12/13/17 15:09 pCO2 39.0 mmHg (35.0-45.0) 12/13/17 15:09 pO2 128.0 mmHg (80.0-100.0) H 12/13/17 15:09 HCO3 25.1 mEq/L (20.0-26.0) 12/13/17 15:09 Base Excess 0.1 mEq/L (-3.0-3.0) 12/13/17 15:09 O2 Saturation 99.0 % (92.0-100.0) 12/13/17 15:09 Vent Rate 10 12/13/17 15:09 Inspired O2 50 12/13/17 15:09 Tidal Volume 500 12/13/17 15:09 PEEP 0 12/13/17 15:09 Pressure (ins/psv/peep) 10 12/13/17 15:09 Critical Value PW 12/13/17 15:09 Sodium 136 mEq/L (136-145) 12/16/17 03:15 Potassium 3.6 mEq/L (3.5-5.1) 12/16/17 03:15 Chloride 108 mEq/L (98-107) H 12/16/17 03:15 Carbon Dioxide 17.1 mEq/L (21.0-31.0) L 12/16/17 03:15 Anion Gap 14.5 (7.0-16.0) 12/16/17 03:15 BUN 26 mg/dL (7-25) H 12/16/17 03:15 Creatinine 0.8 mg/dL (0.6-1.2) 12/16/17 03:15 Est GFR ( Amer) TNP 12/16/17 03:15 Est GFR (Non-Af Amer) TNP 12/16/17 03:15 BUN/Creatinine Ratio 32.5 12/16/17 03:15 Glucose 122 mg/dL (70-105) H 12/16/17 03:15 Calcium 8.3 mg/dL (8.6-10.3) L 12/16/17 03:15 Total Bilirubin 0.5 mg/dL (0.3-1.0) 12/16/17 03:15 AST 19 U/L (13-39) 12/16/17 03:15 ALT 9 U/L (7-52) 12/16/17 03:15 Alkaline Phosphatase 70 U/L (34-104) 12/16/17 03:15 Creatine Kinase 72 U/L (30-223) 12/16/17 03:15 Troponin I 0.07 ng/mL (0.01-0.05) H* 12/16/17 05:30 Total Protein 5.5 gm/dL (6.0-8.3) L 12/16/17 03:15 Albumin 3.0 gm/dL (3.7-5.3) L 12/16/17 03:15 Globulin 2.5 gm/dL 12/16/17 03:15 Albumin/Globulin Ratio 1.2 (1.0-1.8) 12/16/17 03:15 Urine Source CLEAN C 12/13/17 10:05 Urine Color YELLOW 12/13/17 10:05 Urine Clarity CLEAR (CLEAR) 12/13/17 10:05 Urine pH 7.0 (4.6 - 8.0) 12/13/17 10:05 Ur Specific [place] 1.015 (1.005-1.030) 12/13/17 10:05 Urine Protein NEGATIVE mg/dL (NEGATIVE) 12/13/17 10:05 Urine Glucose (UA) NEGATIVE mg/dL (NEGATIVE) 12/13/17 10:05 Urine Ketones NEGATIVE mg/dL (NEGATIVE) 12/13/17 10:05 Urine Blood TRACE (NEGATIVE) 12/13/17 10:05 Urine Nitrate NEGATIVE (NEGATIVE) 12/13/17 10:05 Urine Bilirubin NEGATIVE (NEGATIVE) 12/13/17 10:05 Urine Urobilinogen 0.2 E.U./dL (0.2 - 1.0) 12/13/17 10:05 Ur Leukocyte Esterase SMALL (NEGATIVE) H 12/13/17 10:05 Urine RBC 2-5 /hpf (0-5) 12/13/17 10:05 Urine WBC 6-10 /hpf (0-5) H 12/13/17 10:05 Ur Epithelial Cells FEW /lpf (FEW) 05/21/18 10:05 Urine Bacteria FEW /hpf (NONE SEEN) 12/13/17 10:05 - Physical Exam Vitals and I&O: Vital Signs Temp 98.3 F 12/16/17 04:00 Pulse 89 12/16/17 08:58 Resp 23 12/16/17 04:00 BP 132/77 12/16/17 08:58 Pulse Ox 98 12/16/17 04:00 Intake & Output 12/15/17 12/16/17 12/16/17 18:59 06:59 18:59 Intake Total 350 340 Output Total 320 660 Balance 30 -320 Weight (lbs) 46.266 kg 46.266 kg Intake: Intake, IV Amount 350 100 Levofloxacin 750mg/150mL 150 750 mg In Premix Fluid 1 bag @ 100 mls/hr IV Q48H [facility] Rx#:[id number] metroNIDAZOLE 500mg/NS 200 100 100mL 500 mg In Premix Fluid 1 bag @ 100 mls/hr IV Q8H [facility] Rx#:[id number] Oral 240 Output: Drainage 20 10 Right Lower Abdomen 20 10 Urine 300 650 Other: # Bowel Movements 0 1 Weight Source Bedscale Bedscale Active Medications: Current Medications Amlodipine Besylate (Norvasc) 10 mg PO DAILY [facility] Stop: 02/13/18 14:29 Last Admin: 12/16/17 08:57 Dose: 10 mg Diphenhydramine HCl (Benadryl 50 Mg/Ml) 25 mg IVP Q8H PRN PRN Reason: itchiness Stop: 02/12/18 21:54 Last Admin: 12/15/17 08:34 Dose: 25 mg Heparin Sodium (Porcine) (Heparin) 5,000 units SUBQ Q12HR [facility] Stop: 02/11/18 20:59 Last Admin: 12/16/17 08:58 Dose: 5,000 units Sodium Chloride (Nacl 0.9%) 1,000 mls @ 100 mls/hr IV .Q10H [facility] Stop: 02/11/18 14:29 Last Admin: 12/16/17 05:59 Dose: 100 mls/hr Metronidazole 500 mg/ (Miscellaneous) 100 mls @ 100 mls/hr IV Q8H [facility] Stop: 02/11/18 14:59 Last Admin: 12/16/17 06:51 Dose: 100 mls/hr Levofloxacin 750 mg/ (Miscellaneous) 150 mls @ 100 mls/hr IV Q48H [facility] Stop: 02/11/18 14:59 Last Infusion: 12/15/17 16:24 Dose: Infused Ketorolac Tromethamine (Toradol) 15 mg IVP Q6H PRN PRN Reason: Pain Stop: 12/18/17 14:59 Last Admin: 12/14/17 12:38 Dose: 15 mg Lactobacillus Rhamnosus (Culturelle 15b) 1 each PO DAILY [facility] Stop: 02/13/18 08:59 Last Admin: 12/16/17 08:58 Dose: 1 each Losartan Potassium (Cozaar) 100 mg PO DAILY [facility] Stop: 02/13/18 14:29 Last Admin: 12/16/17 08:58 Dose: 100 mg Miscellaneous (Vte Chemical Prophylaxis Screen/ Admission) 1 ea PRN PRN PRN Reason: PROTOCOL Stop: 02/11/18 12:33 Miscellaneous (Probiotic Screen) 1 [facility] PRN PRN PRN Reason: PROTOCOL Stop: 02/12/18 09:59 Morphine Sulfate (Morphine) 2 mg IVP Q4HR PRN PRN Reason: Abdominal Pain Stop: 02/11/18 14:53 Last Admin: 12/14/17 13:33 Dose: 2 mg Mupirocin (Bactroban Oint) 1 appl NS BID [facility] Stop: 12/20/17 09:01 Last Admin: 12/15/17 17:09 Dose: 1 appl Pantoprazole Sodium (Protonix) 40 mg PO DAILY [facility] Stop: 02/14/18 03:20 Last Admin: 12/16/17 08:57 Dose: 40 mg - Procedures Procedures: Procedures Procedure Code Date BYPASS DESCENDING COLON TO CUTANEOUS, OPEN APPROACH [id number] 08/16/17 BYPASS SIGMOID COLON TO SIGMOID COLON, OPEN APPROACH [id number] 12/13/17 COLONOSCOPY AND BIOPSY 31641 08/16/17 EXCISION OF CECUM, ENDO, DIAGN [id number] 08/16/17 EXCISION OF DESCENDING COLON, OPEN APPROACH [id number] 12/13/17 EXCISION OF RECTUM, ENDO, DIAGN [id number] 08/16/17 EXCISION OF RECTUM, OPEN APPROACH [id number] 08/16/17 EXCISION OF SIGMOID COLON, OPEN APPROACH [id number] 08/16/17 EXCISION OF TRANSVERSE COLON, ENDO, DIAGN [id number] 08/16/17 INSPECTION OF ABDOMINAL WALL, OPEN APPROACH [id number] 12/13/17 RELEASE SMALL INTESTINE, OPEN APPROACH [id number] 12/13/17 RELEASE STOMACH, OPEN APPROACH [id number] 08/16/17 REPAIR RECTUM, OPEN APPROACH [id number] 08/16/17
[2017-12-16] MEDS: metroNIDAZOLE 500 mg/100 mL Premix Bag IV SCH ×2 (15:13→22:28)
--- NOTE | 2017-12-16 16:01 | General Progress Note ---
Objective - Results Result Diagrams: 12/16/17 03:15 12/16/17 03:15 Recent Labs: Laboratory Last Values WBC 8.0 Th/cmm (4.8-10.8) 12/16/17 03:15 RBC 4.95 Mil/cmm (3.80-5.20) 12/16/17 03:15 Hgb 15.3 gm/dL (12-16) 12/16/17 03:15 Hct 45.8 % (41.0-60) 12/16/17 03:15 MCV 92.5 fl (81-100) 12/16/17 03:15 MCH 30.9 pg (27.0-31.0) 12/16/17 03:15 MCHC Differential 33.4 pg (28.0-36.0) 12/16/17 03:15 RDW 13.5 % (11.5-20.0) 12/16/17 03:15 Plt Count 250 Th/cmm (150-400) 12/16/17 03:15 MPV 8.4 fl 12/16/17 03:15 Neutrophils % 75.2 % (40.0-80.0) 12/16/17 03:15 Band Neutrophils % 8 % (0-10) 12/14/17 04:22 Lymphocytes % 16.0 % (20.0-50.0) L 12/16/17 03:15 Monocytes % 7.2 % (2.0-10.0) 12/16/17 03:15 Eosinophils % 0.6 % (0.0-5.0) 12/16/17 03:15 Basophils % 1.0 % (0.0-2.0) 12/16/17 03:15 Neutrophils (Manual) 78 % (40-80) 12/14/17 04:22 Lymphocytes 10 % (20-50) L 12/14/17 04:22 Monocytes 4 % (2-10) 12/14/17 04:22 PT 11.4 SECONDS (9.5-11.5) 12/13/17 08:30 INR 1.09 (0.5-1.4) 12/13/17 08:30 PTT (Actin FS) 26.7 SECONDS (26.0-38.0) 12/13/17 08:30 Specimen Source Arterial 12/13/17 15:09 Sample Site RB 05/21/18 15:09 pH 7.41 (7.35-7.45) 12/13/17 15:09 pCO2 39.0 mmHg (35.0-45.0) 12/13/17 15:09 pO2 128.0 mmHg (80.0-100.0) H 12/13/17 15:09 HCO3 25.1 mEq/L (20.0-26.0) 12/13/17 15:09 Base Excess 0.1 mEq/L (-3.0-3.0) 12/13/17 15:09 O2 Saturation 99.0 % (92.0-100.0) 12/13/17 15:09 Vent Rate 10 12/13/17 15:09 Inspired O2 50 12/13/17 15:09 Tidal Volume 500 12/13/17 15:09 PEEP 0 12/13/17 15:09 Pressure (ins/psv/peep) 10 12/13/17 15:09 Critical Value PW 12/13/17 15:09 Sodium 136 mEq/L (136-145) 12/16/17 03:15 Potassium 3.6 mEq/L (3.5-5.1) 12/16/17 03:15 Chloride 108 mEq/L (98-107) H 12/16/17 03:15 Carbon Dioxide 17.1 mEq/L (21.0-31.0) L 12/16/17 03:15 Anion Gap 14.5 (7.0-16.0) 12/16/17 03:15 BUN 26 mg/dL (7-25) H 12/16/17 03:15 Creatinine 0.8 mg/dL (0.6-1.2) 12/16/17 03:15 Est GFR ( Amer) TNP 12/16/17 03:15 Est GFR (Non-Af Amer) TNP 12/16/17 03:15 BUN/Creatinine Ratio 32.5 12/16/17 03:15 Glucose 122 mg/dL (70-105) H 12/16/17 03:15 Calcium 8.3 mg/dL (8.6-10.3) L 12/16/17 03:15 Total Bilirubin 0.5 mg/dL (0.3-1.0) 12/16/17 03:15 AST 19 U/L (13-39) 12/16/17 03:15 ALT 9 U/L (7-52) 12/16/17 03:15 Alkaline Phosphatase 70 U/L (34-104) 12/16/17 03:15 Creatine Kinase 40 U/L (30-223) 12/16/17 13:30 Troponin I 0.02 ng/mL (0.01-0.05) 12/16/17 13:30 Total Protein 5.5 gm/dL (6.0-8.3) L 12/16/17 03:15 Albumin 3.0 gm/dL (3.7-5.3) L 12/16/17 03:15 Globulin 2.5 gm/dL 12/16/17 03:15 Albumin/Globulin Ratio 1.2 (1.0-1.8) 12/16/17 03:15 Urine Source CLEAN C 12/13/17 10:05 Urine Color YELLOW 12/13/17 10:05 Urine Clarity CLEAR (CLEAR) 12/13/17 10:05 Urine pH 7.0 (4.6 - 8.0) 12/13/17 10:05 Ur Specific [place] 1.015 (1.005-1.030) 12/13/17 10:05 Urine Protein NEGATIVE mg/dL (NEGATIVE) 12/13/17 10:05 Urine Glucose (UA) NEGATIVE mg/dL (NEGATIVE) 12/13/17 10:05 Urine Ketones NEGATIVE mg/dL (NEGATIVE) 12/13/17 10:05 Urine Blood TRACE (NEGATIVE) 12/13/17 10:05 Urine Nitrate NEGATIVE (NEGATIVE) 12/13/17 10:05 Urine Bilirubin NEGATIVE (NEGATIVE) 12/13/17 10:05 Urine Urobilinogen 0.2 E.U./dL (0.2 - 1.0) 12/13/17 10:05 Ur Leukocyte Esterase SMALL (NEGATIVE) H 12/13/17 10:05 Urine RBC 2-5 /hpf (0-5) 12/13/17 10:05 Urine WBC 6-10 /hpf (0-5) H 12/13/17 10:05 Ur Epithelial Cells FEW /lpf (FEW) 12/13/17 10:05 Urine Bacteria FEW /hpf (NONE SEEN) 12/13/17 10:05 - Physical Exam Vitals and I&O: Vital Signs Temp 98.3 F 05/24/18 04:00 Pulse 82 12/16/17 15:52 Resp 18 12/16/17 15:52 BP 132/77 12/16/17 08:58 Pulse Ox 95 12/16/17 15:52 Intake & Output 12/15/17 12/16/17 12/16/17 18:59 06:59 18:59 Intake Total 350 340 Output Total 320 660 Balance 30 -320 Weight (lbs) 46.266 kg 46.266 kg Intake: Intake, IV Amount 350 100 Levofloxacin 750mg/150mL 150 750 mg In Premix Fluid 1 bag @ 100 mls/hr IV Q48H [facility] Rx#:[id number] metroNIDAZOLE 500mg/NS 200 100 100mL 500 mg In Premix Fluid 1 bag @ 100 mls/hr IV Q8H [facility] Rx#:[id number] Oral 240 Output: Drainage 20 10 Right Lower Abdomen 20 10 Urine 300 650 Other: # Bowel Movements 0 1 Stool Characteristics Soft Brown Black Weight Source Bedscale Bedscale Active Medications: Current Medications Amlodipine Besylate (Norvasc) 10 mg PO DAILY [facility] Stop: 02/13/18 14:29 Last Admin: 12/16/17 08:57 Dose: 10 mg Diphenhydramine HCl (Benadryl 50 Mg/Ml) 25 mg IVP Q8H PRN PRN Reason: itchiness Stop: 02/12/18 21:54 Last Admin: 12/15/17 08:34 Dose: 25 mg Heparin Sodium (Porcine) (Heparin) 5,000 units SUBQ Q12HR [facility] Stop: 02/11/18 20:59 Last Admin: 12/16/17 08:58 Dose: 5,000 units Sodium Chloride (Nacl 0.9%) 1,000 mls @ 100 mls/hr IV .Q10H [facility] Stop: 02/11/18 14:29 Last Admin: 12/16/17 05:59 Dose: 100 mls/hr Levofloxacin 750 mg/ (Miscellaneous) 150 mls @ 100 mls/hr IV Q48H [facility] Stop: 02/11/18 14:59 Last Infusion: 12/15/17 16:24 Dose: Infused Metronidazole (Flagyl) 500 mg in 100 mls @ 100 mls/hr IV Q8H [facility] Stop: 02/14/18 14:59 Last Admin: 12/16/17 15:13 Dose: 100 mls/hr Ketorolac Tromethamine (Toradol) 15 mg IVP Q6H PRN PRN Reason: Pain Stop: 12/18/17 14:59 Last Admin: 12/14/17 12:38 Dose: 15 mg Lactobacillus Rhamnosus (Culturelle 15b) 1 each PO DAILY [facility] Stop: 02/13/18 08:59 Last Admin: 12/16/17 08:58 Dose: 1 each Losartan Potassium (Cozaar) 100 mg PO DAILY [facility] Stop: 02/13/18 14:29 Last Admin: 12/16/17 08:58 Dose: 100 mg Miscellaneous (Vte Chemical Prophylaxis Screen/ Admission) 1 ea PRN PRN PRN Reason: PROTOCOL Stop: 02/11/18 12:33 Miscellaneous (Probiotic Screen) 1 ea PRN PRN PRN Reason: PROTOCOL Stop: 02/12/18 09:59 Morphine Sulfate (Morphine) 2 mg IVP Q4HR PRN PRN Reason: Abdominal Pain Stop: 02/11/18 14:53 Last Admin: 12/14/17 13:33 Dose: 2 mg Mupirocin (Bactroban Oint) 1 appl NS BID [facility] Stop: 12/20/17 09:01 Last Admin: 12/15/17 17:09 Dose: 1 appl Pantoprazole Sodium (Protonix) 40 mg PO DAILY [facility] Stop: 02/14/18 03:20 Last Admin: 12/16/17 08:57 Dose: 40 mg - Procedures Procedures: Procedures Procedure Code Date BYPASS DESCENDING COLON TO CUTANEOUS, OPEN APPROACH [id number] 08/16/17 BYPASS SIGMOID COLON TO SIGMOID COLON, OPEN APPROACH [id number] 12/13/17 COLONOSCOPY AND BIOPSY [id number] 08/16/17 EXCISION OF CECUM, ENDO, DIAGN [id number] 08/16/17 EXCISION OF DESCENDING COLON, OPEN APPROACH [id number] 12/13/17 EXCISION OF RECTUM, ENDO, DIAGN [id number] 08/16/17 EXCISION OF RECTUM, OPEN APPROACH [id number] 08/16/17 EXCISION OF SIGMOID COLON, OPEN APPROACH [id number] 08/16/17 EXCISION OF TRANSVERSE COLON, ENDO, DIAGN [id number] 08/16/17 INSPECTION OF ABDOMINAL WALL, OPEN APPROACH [id number] 12/13/17 RELEASE SMALL INTESTINE, OPEN APPROACH [id number] 12/13/17 RELEASE STOMACH, OPEN APPROACH [id number] 08/16/17 REPAIR RECTUM, OPEN APPROACH [id number] 08/16/17
--- NOTE | 2017-12-16 18:05 | History & Physical ---
ADMIT DATE: 12/13/2017 HISTORY OF PRESENT ILLNESS: The patient is well known to me. The patient is known to have history of underlying COPD and has had a rectal prolapse, for which she had diverting colostomy done over 4 months ago. The patient known to have history of hypertension and the patient came back to the hospital because she wanted the revision of her colostomy and the patient was admitted for cardiac evaluation as well as for general evaluation and clearance for surgery. PAST MEDICAL HISTORY: History of hypertension, rectal prolapse, colostomy and history of COPD. FAMILY HISTORY: Unremarkable. PHYSICAL EXAMINATION: VITAL SIGNS: Stable. HEAD: Normal. ENT: Normal. NECK: Supple, nontender. LUNGS: Clear. CARDIOVASCULAR SYSTEM: S1 and S2 heard. ABDOMEN: Soft. Bowel sounds are heard. CENTRAL NERVOUS SYSTEM: ____ normal. DIAGNOSES: Accelerated hypertension, history of rectal prolapse, colostomy, history of osteoporosis and history of chronic obstructive pulmonary disease. PLAN: The patient is known to have a cardiac workup and will have Dr. Robert Hudson see the patient and will get a clearance for surgery for Dr. Valencia to do. JOB# [id number]
[2017-12-17] MEDS: metroNIDAZOLE 500 mg/100 mL Premix Bag IV SCH (06:01)
--- NOTE | 2017-12-17 09:49 | General Progress Note ---
Subjective - Review of Systems Service Date: 12/17/17 Events since last encounter: redressed, incisions healing well will leave drain in place may shower soft diet to my office next Objective - Results Result Diagrams: 12/16/17 03:15 12/16/17 03:15 Recent Labs: Laboratory Last Values WBC 8.0 Th/cmm (4.8-10.8) 12/16/17 03:15 RBC 4.95 Mil/cmm (3.80-5.20) 12/16/17 03:15 Hgb 15.3 gm/dL (12-16) 12/16/17 03:15 Hct 45.8 % (41.0-60) 12/16/17 03:15 MCV 92.5 fl (81-100) 12/16/17 03:15 MCH 30.9 pg (27.0-31.0) 12/16/17 03:15 MCHC Differential 33.4 pg (28.0-36.0) 12/16/17 03:15 RDW 13.5 % (11.5-20.0) 12/16/17 03:15 Plt Count 250 Th/cmm (150-400) 12/16/17 03:15 MPV 8.4 fl 12/16/17 03:15 Neutrophils % 75.2 % (40.0-80.0) 12/16/17 03:15 Band Neutrophils % 8 % (0-10) 12/14/17 04:22 Lymphocytes % 16.0 % (20.0-50.0) L 12/16/17 03:15 Monocytes % 7.2 % (2.0-10.0) 12/16/17 03:15 Eosinophils % 0.6 % (0.0-5.0) 12/16/17 03:15 Basophils % 1.0 % (0.0-2.0) 12/16/17 03:15 Neutrophils (Manual) 78 % (40-80) 12/14/17 04:22 Lymphocytes 10 % (20-50) L 12/14/17 04:22 Monocytes 4 % (2-10) 12/14/17 04:22 PT 11.4 SECONDS (9.5-11.5) 12/13/17 08:30 INR 1.09 (0.5-1.4) 12/13/17 08:30 PTT (Actin FS) 26.7 SECONDS (26.0-38.0) 12/13/17 08:30 Specimen Source Arterial 12/13/17 15:09 Sample Site RB 12/13/17 15:09 pH 7.41 (7.35-7.45) 12/13/17 15:09 pCO2 39.0 mmHg (35.0-45.0) 12/13/17 15:09 pO2 128.0 mmHg (80.0-100.0) H 12/13/17 15:09 HCO3 25.1 mEq/L (20.0-26.0) 12/13/17 15:09 Base Excess 0.1 mEq/L (-3.0-3.0) 12/13/17 15:09 O2 Saturation 99.0 % (92.0-100.0) 12/13/17 15:09 Vent Rate 10 12/13/17 15:09 Inspired O2 50 12/13/17 15:09 Tidal Volume 500 12/13/17 15:09 PEEP 0 12/13/17 15:09 Pressure (ins/psv/peep) 10 12/13/17 15:09 Critical Value PW 12/13/17 15:09 Sodium 136 mEq/L (136-145) 12/16/17 03:15 Potassium 3.6 mEq/L (3.5-5.1) 12/16/17 03:15 Chloride 108 mEq/L (98-107) H 12/16/17 03:15 Carbon Dioxide 17.1 mEq/L (21.0-31.0) L 12/16/17 03:15 Anion Gap 14.5 (7.0-16.0) 12/16/17 03:15 BUN 26 mg/dL (7-25) H 12/16/17 03:15 Creatinine 0.8 mg/dL (0.6-1.2) 12/16/17 03:15 Est GFR ( Amer) TNP 12/16/17 03:15 Est GFR (Non-Af Amer) TNP 12/16/17 03:15 BUN/Creatinine Ratio 32.5 12/16/17 03:15 Glucose 122 mg/dL (70-105) H 12/16/17 03:15 Calcium 8.3 mg/dL (8.6-10.3) L 12/16/17 03:15 Total Bilirubin 0.5 mg/dL (0.3-1.0) 12/16/17 03:15 AST 19 U/L (13-39) 12/16/17 03:15 ALT 9 U/L (7-52) 12/16/17 03:15 Alkaline Phosphatase 70 U/L (34-104) 12/16/17 03:15 Creatine Kinase 29 U/L (30-223) L 12/16/17 21:53 Troponin I 0.02 ng/mL (0.01-0.05) 12/16/17 21:53 Total Protein 5.5 gm/dL (6.0-8.3) L 12/16/17 03:15 Albumin 3.0 gm/dL (3.7-5.3) L 12/16/17 03:15 Globulin 2.5 gm/dL 12/16/17 03:15 Albumin/Globulin Ratio 1.2 (1.0-1.8) 12/16/17 03:15 Urine Source CLEAN C 12/13/17 10:05 Urine Color YELLOW 12/13/17 10:05 Urine Clarity CLEAR (CLEAR) 12/13/17 10:05 Urine pH 7.0 (4.6 - 8.0) 12/13/17 10:05 Ur Specific [place] 1.015 (1.005-1.030) 12/13/17 10:05 Urine Protein NEGATIVE mg/dL (NEGATIVE) 12/13/17 10:05 Urine Glucose (UA) NEGATIVE mg/dL (NEGATIVE) 12/13/17 10:05 Urine Ketones NEGATIVE mg/dL (NEGATIVE) 12/13/17 10:05 Urine Blood TRACE (NEGATIVE) 12/13/17 10:05 Urine Nitrate NEGATIVE (NEGATIVE) 12/13/17 10:05 Urine Bilirubin NEGATIVE (NEGATIVE) 12/13/17 10:05 Urine Urobilinogen 0.2 E.U./dL (0.2 - 1.0) 12/13/17 10:05 Ur Leukocyte Esterase SMALL (NEGATIVE) H 12/13/17 10:05 Urine RBC 2-5 /hpf (0-5) 12/13/17 10:05 Urine WBC 6-10 /hpf (0-5) H 12/13/17 10:05 Ur Epithelial Cells FEW /lpf (FEW) 12/13/17 10:05 Urine Bacteria FEW /hpf (NONE SEEN) 12/13/17 10:05 - Physical Exam Vitals and I&O: Vital Signs Temp 97.9 F 12/17/17 07:43 Pulse 92 12/17/17 08:03 Resp 18 12/17/17 08:03 BP 126/84 12/17/17 07:43 Pulse Ox 96 12/17/17 08:03 Intake & Output 12/16/17 12/17/17 12/17/17 18:59 06:59 18:59 Intake Total 500 100 Output Total 801 Balance -301 100 Weight (lbs) 46.266 kg Intake: Intake, IV Amount 100 100 metroNIDAZOLE 500mg/NS 100 100 100mL 500 mg In 100 ml @ 100 mls/hr IV Q8H [facility] Rx# :[id number] Oral 400 Output: Drainage 1 Right Lower Abdomen 1 Urine 800 Other: # Bowel Movements 3 Stool Characteristics Soft Brown Black Weight Source Bedscale Active Medications: Current Medications Amlodipine Besylate (Norvasc) 10 mg PO DAILY [facility] Stop: 02/13/18 14:29 Last Admin: 12/16/17 08:57 Dose: 10 mg Diphenhydramine HCl (Benadryl 50 Mg/Ml) 25 mg IVP Q8H PRN PRN Reason: itchiness Stop: 02/12/18 21:54 Last Admin: 12/16/17 22:28 Dose: 25 mg Heparin Sodium (Porcine) (Heparin) 5,000 units SUBQ Q12HR [facility] Stop: 02/11/18 20:59 Last Admin: 12/16/17 20:51 Dose: 5,000 units Sodium Chloride (Nacl 0.9%) 1,000 mls @ 100 mls/hr IV .Q10H [facility] Stop: 02/11/18 14:29 Last Admin: 12/16/17 05:59 Dose: 100 mls/hr Levofloxacin 750 mg/ (Miscellaneous) 150 mls @ 100 mls/hr IV Q48H [facility] Stop: 02/11/18 14:59 Last Infusion: 12/15/17 16:24 Dose: Infused Metronidazole (Flagyl) 500 mg in 100 mls @ 100 mls/hr IV Q8H [facility] Stop: 02/14/18 14:59 Last Admin: 12/17/17 06:01 Dose: 100 mls/hr Ketorolac Tromethamine (Toradol) 15 mg IVP Q6H PRN PRN Reason: Pain Stop: 12/18/17 14:59 Last Admin: 12/14/17 12:38 Dose: 15 mg Lactobacillus Rhamnosus (Culturelle 15b) 1 each PO DAILY [facility] Stop: 02/13/18 08:59 Last Admin: 12/16/17 08:58 Dose: 1 each Losartan Potassium (Cozaar) 100 mg PO DAILY [facility] Stop: 02/13/18 14:29 Last Admin: 12/16/17 08:58 Dose: 100 mg Miscellaneous (Vte Chemical Prophylaxis Screen/ Admission) 1 ea PRN PRN PRN Reason: PROTOCOL Stop: 02/11/18 12:33 Miscellaneous (Probiotic Screen) 1 ea PRN PRN PRN Reason: PROTOCOL Stop: 02/12/18 09:59 Morphine Sulfate (Morphine) 2 mg IVP Q4HR PRN PRN Reason: Abdominal Pain Stop: 02/11/18 14:53 Last Admin: 12/14/17 13:33 Dose: 2 mg Mupirocin (Bactroban Oint) 1 appl NS BID [facility] Stop: 12/20/17 09:01 Last Admin: 12/16/17 17:51 Dose: 1 appl Pantoprazole Sodium (Protonix) 40 mg PO DAILY [facility] Stop: 02/14/18 03:20 Last Admin: 12/16/17 08:57 Dose: 40 mg - Procedures Procedures: Procedures Procedure Code Date BYPASS DESCENDING COLON TO CUTANEOUS, OPEN APPROACH [id number] 08/16/17 BYPASS SIGMOID COLON TO SIGMOID COLON, OPEN APPROACH [id number] 12/13/17 COLONOSCOPY AND BIOPSY 29862 08/16/17 EXCISION OF CECUM, ENDO, DIAGN [id number] 08/16/17 EXCISION OF DESCENDING COLON, OPEN APPROACH [id number] 12/13/17 EXCISION OF RECTUM, ENDO, DIAGN [id number] 08/16/17 EXCISION OF RECTUM, OPEN APPROACH [id number] 08/16/17 EXCISION OF SIGMOID COLON, OPEN APPROACH [id number] 08/16/17 EXCISION OF TRANSVERSE COLON, ENDO, DIAGN [id number] 08/16/17 INSPECTION OF ABDOMINAL WALL, OPEN APPROACH [id number] 12/13/17 RELEASE SMALL INTESTINE, OPEN APPROACH [id number] 12/13/17 RELEASE STOMACH, OPEN APPROACH [id number] 08/16/17 REPAIR RECTUM, OPEN APPROACH [id number] 08/16/17
[2017-12-17] MEDS: Lactobacillus Rhamnosus GG 15 Billion CFU CAP.SPRINK PO SCH (09:55)
[2017-12-17] MEDS: Pantoprazole 40 mg EC Tab PO SCH (09:55)
--- NOTE | 2017-12-21 22:09 | Discharge Summary ---
DATE OF DISCHARGE: 12/17/2017 Apparently, this patient is well known to me. The patient known to have history of COPD. The patient had a rectal prolapse for which she had surgery and the colostomy. She was admitted for reanastomosis and reversal of colostomy and also the patient known to have history of COPD. She was admitted and was treated by Dr. Valencia and the patient gradually improved. The patient was in stable condition. DISCHARGE DIAGNOSES: On 12/17/2017, status post surgery following colostomy reversal and history of rectal prolapse, history of osteoporosis, history of chronic obstructive pulmonary disease ____. The patient is being transferred to ____ where I will follow the patient. JOB# [id number]
== END 2017-12-17 14:45 | DRG 331 ==
LOC: MSI 12-13 07:08 → ICU 12-13 07:59 → TELE 12-16 19:59
PROVIDERS: ADMIT Internal Medicine; ATTEND Internal Medicine
PROC: 0DN80ZZ Release Small Intestine, Open Approach (ICD-10-PCS; principal; 2017-12-13)
PROC: 0D1N0ZN Bypass Sigmoid Colon to Sigmoid Colon, Open Approach (ICD-10-PCS; 2017-12-13)
PROC: 0DBM0ZZ Excision of Descending Colon, Open Approach (ICD-10-PCS; 2017-12-13)
DX: K62.3 Rectal prolapse (principal); Z93.3 Colostomy status; I10 Essential (primary) hypertension; M81.0 Age-related osteoporosis without current pathological fracture; J44.9 Chronic obstructive pulmonary disease, unspecified; N73.6 Female pelvic peritoneal adhesions (postinfective)
CPT/HCPCS: 36415-UA; 36600-90; 71045-TC; 80053-TC; 81001-TC; 82550-TC; 82803-TC; 84484-TC; 85007-TC; 85025-TC; 85027-TC; 85610-TC; 87070-90; 87075-90; 87205-90; 88304-TC; 90799; 93005; 94002; 94760; 96372; 97530; 99201; J0696; J1200; J1644; J1885; J1956; J2405; J2704; J2710; J7030; V2790; X3904; X6024; X6258; Z7610

== ENCOUNTER 2018-04-07 11:37 | Inpatient (IN) | payer MEDICARE ==
--- NOTE | 2018-04-07 12:28 | ED Physician Chart ---
ED Chief Complaint/HPI - Patient Information Date Seen:: 04/07/18 Time Seen:: 12:15 Chief Complaint:: possible urinary tract infection History of Present Illness:: For the last 3 weeks patient's had severe dysuria. No chills, fever, backache. Patient was seen at [facility] where she was started on oral antibiotics. Apparently the antibiotic was changed due to culture results. Allergies:: Allergies Allergy/AdvReac Type Severity Reaction Status Date / Time No Known Allergies Allergy Verified 08/16/17 17:38 Historian:: Patient, Family Member Review:: Nurse's Note Reviewed ED Review of Systems - Review of Systems General/Constitutional: No fever, No chills Skin: No skin lesions Head: No headache Eyes: No loss of vision ENT: No earache Neck: No neck pain, No swelling Cardio Vascular: No chest pain, No palpitations Pulmonary: No SOB, No cough GI: No nausea, No vomiting, No diarrhea G/U: Dysuria Musculoskeletal: No bone or joint pain, No back pain, No muscle pain Psychiatric: No prior psych history, No depression, No anxiety Allergic/Immuno: No urticaria Neurological: No syncope, No focal symptoms ED Past Medical History - Past Medical History Past Medical History: No significant medical hx, Other Family History: None Social History: Non Smoker, Alcohol, Other (drinks one glass of wine every night ) Surgical History: other (bilateral hip replacement 30 years ago and again in 2017; rectal prolapse and 2017 with colostomy and colostomy reversal 2 months later) Family Medical History - Family Member Mother History Unknown: Yes ED Physical Exam - Physical Examination General/Constitutional: Well-developed, well-nourished, Alert, No distress Head: Atraumatic Eyes: Lids, conjuctiva normal, PERRL Skin: Nl inspection, No rash ENMT: External ears, nose nl, TM canals nl, Nasal exam nl Other ENMT comments:: Lower partial plate Neck: No nuchal rigidity Respiratory: Nl effort/Exclusion, Clear to Auscultation Other Cardio Vascular comments:: Heart sounds faint; pulse regular GI: No organomegaly : No CVA tenderness Extremities: Normal digits & nails ED Labs/Radiology/EKG Results - Lab Results Results: Laboratory Results - last 24 hr 04/07/18 04/07/18 12:30 12:30 WBC 5.0 R BC 5.02 Hgb 14.9 Hct 45.0 MCV 89.7 MCH 29.6 MCHC Differential 33.0 RDW 13.1 Plt Count 261 MPV 8.3 Neutrophils % 50.1 Lymphocytes % 40.7 Monocytes % 7.4 Eosinophils % 1.3 Basophils % 0.5 Sodium 133 L Potassium 4.1 Chloride 99 Carbon Dioxide 24.0 Anion Gap 14.1 BUN 13 Creatinine 0.9 Est GFR ( Amer) TNP Est GFR (Non-Af Amer) TNP BUN/Creatinine Ratio 14.4 Glucose 93 Calcium 9.6 - Radiology Results Results: Chest x-ray shows no infiltrate; no cardiomegaly; breast implants noted - EKG Interpretations Rate & Rhythm: normal sinus rhythm with a rate of 62 [place]: normal 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 Is Septic Shock (SBP<90, OR Lactate>4 mmol\L) present?: No ED Reassessment (Disposition) - Reassessment Reassessment Condition:: Unchanged - Diagnosis Diagnosis:: Possible urinary tract infection - Patient Disposition Admitted to:: Med/Surg Admitting Medical Physician:: Audrey Patino Condition at Disposition:: Stable, Unchanged
[2018-04-07 13:00] LABS: MEAN CORPUSCULAR HEMOGLOBIN 29.6 pg (27.0-31.0)
[2018-04-07 13:02] LABS: % BASOPHILS 0.5 % (0.0-2.0); % EOSINOPHILS 1.3 % (0.0-5.0); % LYMPHOCYTES 40.7 % (20.0-50.0); % MONOCYTES 7.4 % (2.0-10.0); % NEUTROPHILS 50.1 % (40.0-80.0); EOSINOPHILE ABSOLUTE 0.1 Th/cmm (0.1-0.4); HEMOGLOBIN 14.9 gm/dL (12-16); MEAN CELL VOLUME 89.7 fl (81-100); MEAN PLATELET VOLUME 8.3 fl; MONOCYTE ABSOLUTE 0.4 Th/cmm (0.3-1.0); NEUTROPHILE ABSOLUTE 2.5 Th/cmm (1.8-8.0); PLATELET COUNT 261 Th/cmm (150-400); RED BLOOD COUNT 5.02 Mil/cmm (3.80-5.20); RED CELL DISTRIBUTION WIDTH 13.1 % (11.5-20.0)
[2018-04-07 13:06] LABS: ANION GAP 14.1 (7.0-16.0); BUN - UREA NITROGEN 13 mg/dL (7-25); CALCIUM SERUM 9.6 mg/dL (8.6-10.3); CHLORIDE 99 mEq/L (98-107); CREATININE - SERUM 0.9 mg/dL (0.6-1.2); GLUCOSE 93 mg/dL (70-105); POTASSIUM SERUM 4.1 mEq/L (3.5-5.1); SODIUM SERUM 133 mEq/L (136-145)
[2018-04-07 13:29] LABS: URINE SOURCE CATH
[2018-04-07 13:30] LABS: URINE BILIRUBIN NEGATIVE (NEGATIVE); URINE BLOOD SMALL (NEGATIVE); URINE GLUCOSE (UA) NEGATIVE (NEGATIVE); URINE KETONE NEGATIVE (NEGATIVE); URINE LEUKOCYTE ESTERASE SMALL (NEGATIVE); URINE MICROSCOPIC INDICATED? YES; URINE NITRATE NEGATIVE (NEGATIVE); URINE PROTEIN NEGATIVE (NEGATIVE); URINE UROBILINOGEN 0.2 E.U./dL (0.2 - 1.0)
[2018-04-07 13:34] LABS: URINE COLOR YELLOW
[2018-04-07 13:35] LABS: URINE CLARITY CLEAR (CLEAR)
[2018-04-07 13:40] LABS: URINE BACTERIA FEW /hpf (NONE SEEN); URINE EPITHELIAL CELLS FEW /lpf (FEW); URINE RBC 0-2 /hpf (0-5)
[2018-04-07] MEDS ORDERED: Sodium Chloride 0.9% 1,000 ML IV ONE (14:00)
[2018-04-07] MEDS ORDERED: cefTRIAXone 1 GM in Sodium Chloride 0.9% 50 ML IV ONE (14:03)
--- NOTE | 2018-04-07 21:03 | History & Physical ---
ADMIT DATE: 04/07/2018 HISTORY OF PRESENT ILLNESS: The patient is very well known to me. The patient is known to have history of COPD, history of recurrent urinary tract infection, history of rectal prolapse in the past, which she had operation done and history of status post colostomy, which was reversed. The patient complains of severe fever, chills, and rigors. The patient came to the Emergency Room, admitted for urinary infection, possible sepsis, UTI and the patient was recently seen in [facility] and the patient failed to the oral antibiotic therapy. PAST MEDICAL HISTORY: As enumerated above. PAST SURGICAL HISTORY: As enumerated above. PHYSICAL EXAMINATION: HEAD: Normal. ENT: Normal. NECK: Supple, nontender. LUNGS: Clear. CARDIOVASCULAR SYSTEM: S1, S2 heard. ABDOMEN: Soft. Bowel sounds are heard. CENTRAL NERVOUS SYSTEM: Grossly normal. LABORATORY DATA: EKG showed old septal infarction. DIAGNOSES: Urinary tract infection; perineal infection; history of rule out sepsis, urinary tract infection; history of rectal prolapse in the past, status post repair; status post colostomy repair; history of bilateral hip replacement in the past. PLAN: The patient is being admitted. I will go ahead and give her antibiotics, Zosyn 3.375 g q. 8 hour. I will also give her Pyridium and Lotrisone cream for her perineal area and I will have Dr. Hudson see the patient. I will follow the patient. JOB# [id number]
[2018-04-07] MEDS ORDERED: Piperacillin Sodium/Tazobact 3.375 gm Vial IV ONE (22:03)
[2018-04-08 04:31] VITALS: BP 154/69
[2018-04-08] MEDS ORDERED: Piperacillin Sodium/Tazobact 3.375 gm Vial IV ONE (05:18)
--- NOTE | 2018-04-08 08:33 | Diagnostic Imaging Report ---
Portable chest x-ray HISTORY: Fever The heart is enlarged. Atherosclerotic calcination seen in the aorta. Density noted over the right and left chest appears related to overlying breast tissue (question breast implants). No definite acute pulmonary processes. IMPRESSION: 1. No acute focal pulmonary processes 2. Cardiomegaly with atherosclerotic vascular changes
[2018-04-08] MEDS ORDERED: Betamethasone/Clotrimazole Cream 15 gm Tube TP SCH (09:00)
--- NOTE | 2018-04-08 09:44 | Consultation ---
Consult Note - Consult Note Service Date: 04/08/18 Referring Physician: Audrey Patino Consult Note: PHYSICIAN Consultation Note: Date of Admission: 04/07/18 Purpose of Consultation: Chief Complaint: Patient [facility] was admitted to location Medical/Surgical Unit I with URINARY TRACT INFECTION. History of Present Illness: 87-year-old female with no significant past medical history developed dysuria over 1 month ago. She was put on multiple antibiotics, with no response. So she was admitted to the hospital for further care. Zosyn was started by BM was started. She is feeling somewhat better. On initial evaluation her temperature was 100.4F and WBC count was 5000. ID consult was called for further antibiotic management and evaluation. Past Medical History: History of bilateral hip replacement, history of colostomy and reversal of colostomy. History of rectal prolapse and status post repair Allergies Allergy/AdvReac Type Severity Reaction Status Date / Time No Known Allergies Allergy Verified 08/16/17 17:38 Vital Signs Temp 98.9 F 04/08/18 04:00 Pulse 58 04/08/18 04:00 Resp 20 04/08/18 04:00 BP 154/69 04/08/18 04:31 Pulse Ox 97 04/08/18 04:00 Intake & Output 04/07/18 04/08/18 04/08/18 18:59 06:59 18:59 Intake Total 1050 100 150 Balance 1050 100 150 Weight (lbs) 46.266 kg 46.266 kg Intake: Intake, IV Amount 1050 100 Piperacillin Sodium/ 100 Tazobact 3.375 gm In Sodium Chloride 0.9% 50 ml @ 100 mls/hr IV Q8HR [facility] Rx#:[id number] Oral 150 Other: # Voids 2 # Bowel Movements 0 Weight Source Estimated Bedscale Laboratory Results - last 24 hr 04/07/18 04/07/18 04/07/18 12:30 12:30 12:45 WBC 5.0 RBC 5.02 Hgb 14.9 Hct 45.0 MCV 89.7 MCH 29.6 MCHC Differential 33.0 RDW 13.1 Plt Count 261 MPV 8.3 Neutrophils % 50.1 Lymphocytes % 40.7 Monocytes % 7.4 Eosinophils % 1.3 Basophils % 0.5 Sodium 133 L Potassium 4.1 Chloride 99 Carbon Dioxide 24.0 Anion Gap 14.1 BUN 13 Creatinine 0.9 Est GFR ( Amer) TNP Est GFR (Non-Af Amer) TNP BUN/Creatinine Ratio 14.4 Glucose 93 Calcium 9.6 Urine Source CATH Urine Color YELLOW Urine Clarity CLEAR Urine pH 6.0 Ur Specific [place] 1.025 Urine Protein NEGATIVE Urine Glucose (UA) NEGATIVE Urine Ketones NEGATIVE Urine Blood SMALL H Urine Nitrate NEGATIVE Urine Bilirubin NEGATIVE Urine Urobilinogen 0.2 Ur Leukocyte Esterase SMALL H Urine RBC 0-2 Urine WBC 6-10 H Ur Epithelial Cells FEW Urine Bacteria FEW Urine Mucus FEW Home Medication Medication Instructions Recorded Type Amoxicillin [Amoxil] 500 mg PO DAILY 04/07/18 History Cephalexin [Keflex] 500 mg PO TID 04/07/18 History Current Medications Generic Name Dose Route Start Last Admin Trade Name Abelq PRN Reason Stop Dose Admin Betamethasone/Clotrimazole 1 appl 04/08/18 09:00 04/08/18 09:17 Lotrisone Cream TP 06/07/18 08:59 1 appl BID [facility] Administration Piperacillin Sod/Tazobactam 50 mls @ 100 mls/hr 04/07/18 21:00 04/08/18 06:05 Sod 3.375 gm/ Sodium Chloride IV 06/06/18 20:59 Infused Q8HR [facility] Infusion Phenazopyridine HCl 200 mg 04/08/18 09:00 04/08/18 09:17 Pyridium PO 04/11/18 08:59 200 mg BID [facility] Administration Review of Systems: A 12 point ROS was reviewed with the pertinent positive and negatives noted in the HPI. General/Constitutional: No fever, No chills Skin: No skin lesions Head: No headache Eyes: No loss of vision ENT: No earache Neck: No neck pain, No swelling Cardio Vascular: No chest pain, No palpitations Pulmonary: No SOB, No cough GI: No nausea, No vomiting, No diarrhea G/U: Dysuria, denies any hematuria. Musculoskeletal: No bone or joint pain, No back pain, No muscle pain Psychiatric: No prior psych history, No depression, No anxiety Allergic/Immuno: No urticaria Neurological: No syncope, No focal symptoms. Social History Smoking Status Unknown if ever smoked Drug Use No Alcohol Use No Family Medical History Noncontributory. Physical Exam: General: Comfortable, not in acute distress. HEENT: Head: NC NT. Oral cavity: Moist, pink tongue. Eyes: Pallor is present icterus. PERRLA EOMI. Neck: Supple, no JVD. Cardio: S1 and S2 within normal limits regular rhythm no murmur or gallop. Respiratory: CTAP Abdominal: Soft, nontender nondistended bowel sounds present. Genital/Urinary: Extremities: No cyanosis no clubbing no edema. Neurological: Alert, awake, oriented 3. No focal neuro deficit. Assessment: 1. UTI. Patient ran neurogenic bladder versus urethral stenosis. 2. Hyponatremia. 3. Perineal infection Plan: continue Zosyn at this time. Continue pyridium for 2 days. Continue Lotrisone. May get urine culture report from nursing facility. May consider urology consultation after discharge. Thank you, Dr. Patino for involving me in taking care of this patient Signed, Lon Hudson M.D. 04/08/[id number]
--- NOTE | 2018-04-08 21:21 | Internal Medicine Prog Note ---
Internal Medicine Subjective - Subjective Service Date: 04/08/18 Patient seen and examined:: with staff Patient is:: awake, verbal Per staff patient has:: tolerating meds Internal Medicine Objective - Results Result Diagrams: 04/07/18 12:30 04/07/18 12:30 Recent Labs: Laboratory Last Values WBC 5.0 Th/cmm (4.8-10.8) 04/07/18 12:30 RBC 5.02 Mil/cmm (3.80-5.20) 04/07/18 12:30 Hgb 14.9 gm/dL (12-16) 04/07/18 12:30 Hct 45.0 % (41.0-60) 04/07/18 12:30 MCV 89.7 fl (81-100) 04/07/18 12:30 MCH 29.6 pg (27.0-31.0) 04/07/18 12:30 MCHC Differential 33.0 pg (28.0-36.0) 04/07/18 12:30 RDW 13.1 % (11.5-20.0) 04/07/18 12:30 Plt Count 261 Th/cmm (150-400) 04/07/18 12:30 MPV 8.3 fl 04/07/18 12:30 Neutrophils % 50.1 % (40.0-80.0) 04/07/18 12:30 Lymphocytes % 40.7 % (20.0-50.0) 04/07/18 12:30 Monocytes % 7.4 % (2.0-10.0) 04/07/18 12:30 Eosinophils % 1.3 % (0.0-5.0) 04/07/18 12:30 Basophils % 0.5 % (0.0-2.0) 04/07/18 12:30 Sodium 133 mEq/L (136-145) L 04/07/18 12:30 Potassium 4.1 mEq/L (3.5-5.1) 04/07/18 12:30 Chloride 99 mEq/L (98-107) 04/07/18 12:30 Carbon Dioxide 24.0 mEq/L (21.0-31.0) 04/07/18 12:30 Anion Gap 14.1 (7.0-16.0) 04/07/18 12:30 BUN 13 mg/dL (7-25) 04/07/18 12:30 Creatinine 0.9 mg/dL (0.6-1.2) 04/07/18 12:30 Est GFR ( Amer) TNP 04/07/18 12:30 Est GFR (Non-Af Amer) TNP 04/07/18 12:30 BUN/Creatinine Ratio 14.4 04/07/18 12:30 Glucose 93 mg/dL (70-105) 04/07/18 12:30 Calcium 9.6 mg/dL (8.6-10.3) 04/07/18 12:30 Urine Source CATH 04/07/18 12:45 Urine Color YELLOW 04/07/18 12:45 Urine Clarity CLEAR (CLEAR) 04/07/18 12:45 Urine pH 6.0 (4.6 - 8.0) 04/07/18 12:45 Ur Specific [place] 1.025 (1.005-1.030) 04/07/18 12:45 Urine Protein NEGATIVE mg/dL (NEGATIVE) 04/07/18 12:45 Urine Glucose (UA) NEGATIVE mg/dL (NEGATIVE) 04/07/18 12:45 Urine Ketones NEGATIVE mg/dL (NEGATIVE) 04/07/18 12:45 Urine Blood SMALL (NEGATIVE) H 04/07/18 12:45 Urine Nitrate NEGATIVE (NEGATIVE) 04/07/18 12:45 Urine Bilirubin NEGATIVE (NEGATIVE) 04/07/18 12:45 Urine Urobilinogen 0.2 E.U./dL (0.2 - 1.0) 04/07/18 12:45 Ur Leukocyte Esterase SMALL (NEGATIVE) H 04/07/18 12:45 Urine RBC 0-2 /hpf (0-5) 04/07/18 12:45 Urine WBC 6-10 /hpf (0-5) H 04/07/18 12:45 Ur Epithelial Cells FEW /lpf (FEW) 04/07/18 12:45 Urine Bacteria FEW /hpf (NONE SEEN) 04/07/18 12:45 Urine Mucus FEW /lpf (FEW) 04/07/18 12:45 - Physical Exam Vitals and I&O: Vital Signs Temp 99 F 04/08/18 17:44 Pulse 64 04/08/18 17:44 Resp 16 04/08/18 17:44 BP 168/86 04/08/18 17:44 Pulse Ox 96 04/08/18 17:44 Intake & Output 04/08/18 04/08/18 04/09/18 06:59 18:59 06:59 Intake Total 100 1280 Balance 100 1280 Weight (lbs) 102 lb Intake: Intake, IV Amount 100 50 Piperacillin Sodium/ 100 50 Tazobact 3.375 gm In Sodium Chloride 0.9% 50 ml @ 100 mls/hr IV Q8HR [facility] Rx#:[id number] Oral 1230 Other: # Voids 4 # Bowel Movements 1 Weight Source Estimated Active Medications: Current Medications Betamethasone/Clotrimazole (Lotrisone Cream) 1 appl TP Q12HR [facility] Stop: 06/07/18 20:59 Piperacillin Sod/Tazobactam (Sod 3.375 gm/ Sodium Chloride) 50 mls @ 100 mls/ hr IV Q8HR [facility] Stop: 06/06/18 20:59 Last Infusion: 04/08/18 13:43 Dose: Infused Phenazopyridine HCl (Pyridium) 200 mg PO BID [facility] Stop: 04/11/18 08:59 Last Admin: 04/08/18 16:18 Dose: 200 mg General: weak, alert HEENT: NC/AT, PERRLA Neck: Supple Lungs: CTAB Neurological: alert - Procedures Procedures: Procedures Procedure Code Date BYPASS DESCENDING COLON TO CUTANEOUS, OPEN APPROACH [id number] 08/16/17 BYPASS SIGMOID COLON TO SIGMOID COLON, OPEN APPROACH [id number] 12/13/17 COLONOSCOPY AND BIOPSY 44190 08/16/17 EXCISION OF CECUM, ENDO, DIAGN [id number] 08/16/17 EXCISION OF DESCENDING COLON, OPEN APPROACH [id number] 12/13/17 EXCISION OF RECTUM, ENDO, DIAGN [id number] 08/16/17 EXCISION OF RECTUM, OPEN APPROACH [id number] 08/16/17 EXCISION OF SIGMOID COLON, OPEN APPROACH [id number] 08/16/17 EXCISION OF TRANSVERSE COLON, ENDO, DIAGN [id number] 08/16/17 RELEASE SMALL INTESTINE, OPEN APPROACH [id number] 12/13/17 RELEASE STOMACH, OPEN APPROACH [id number] 08/16/17 REPAIR RECTUM, OPEN APPROACH [id number] 08/16/17 Internal Medicine Assmt/Plan - Assessment Assessment: acute uti hyponatremia - Plan Plan: continue ivabx as per id continue current plan of care
[2018-04-08] MEDS: Betamethasone/Clotrimazole Cream 15 gm Tube TP SCH (22:33)
[2018-04-09] MEDS: Betamethasone/Clotrimazole Cream 15 gm Tube TP SCH ×2 (09:49→21:19)
--- NOTE | 2018-04-09 18:51 | Infectious Disease Prog Note ---
Infectious Disease Subjective - Review of Systems Service Date: 04/09/18 Subjective: There is no new change, denies any dysuria. Infectious Disease Objective - Results Result Diagrams: 04/07/18 12:30 04/07/18 12:30 Recent Labs: Laboratory Last Values WBC 5.0 Th/cmm (4.8-10.8) 04/07/18 12:30 RBC 5.02 Mil/cmm (3.80-5.20) 04/07/18 12:30 Hgb 14.9 gm/dL (12-16) 04/07/18 12:30 Hct 45.0 % (41.0-60) 04/07/18 12:30 MCV 89.7 fl (81-100) 04/07/18 12:30 MCH 29.6 pg (27.0-31.0) 04/07/18 12:30 MCHC Differential 33.0 pg (28.0-36.0) 04/07/18 12:30 RDW 13.1 % (11.5-20.0) 04/07/18 12:30 Plt Count 261 Th/cmm (150-400) 04/07/18 12:30 MPV 8.3 fl 04/07/18 12:30 Neutrophils % 50.1 % (40.0-80.0) 04/07/18 12:30 Lymphocytes % 40.7 % (20.0-50.0) 04/07/18 12:30 Monocytes % 7.4 % (2.0-10.0) 04/07/18 12:30 Eosinophils % 1.3 % (0.0-5.0) 04/07/18 12:30 Basophils % 0.5 % (0.0-2.0) 04/07/18 12:30 Sodium 133 mEq/L (136-145) L 04/07/18 12:30 Potassium 4.1 mEq/L (3.5-5.1) 04/07/18 12:30 Chloride 99 mEq/L (98-107) 04/07/18 12:30 Carbon Dioxide 24.0 mEq/L (21.0-31.0) 04/07/18 12:30 Anion Gap 14.1 (7.0-16.0) 04/07/18 12:30 BUN 13 mg/dL (7-25) 04/07/18 12:30 Creatinine 0.9 mg/dL (0.6-1.2) 04/07/18 12:30 Est GFR ( Amer) TNP 04/07/18 12:30 Est GFR (Non-Af Amer) TNP 04/07/18 12:30 BUN/Creatinine Ratio 14.4 04/07/18 12:30 Glucose 93 mg/dL (70-105) 04/07/18 12:30 Calcium 9.6 mg/dL (8.6-10.3) 04/07/18 12:30 Urine Source CATH 04/07/18 12:45 Urine Color YELLOW 04/07/18 12:45 Urine Clarity CLEAR (CLEAR) 04/07/18 12:45 Urine pH 6.0 (4.6 - 8.0) 04/07/18 12:45 Ur Specific [place] 1.025 (1.005-1.030) 04/07/18 12:45 Urine Protein NEGATIVE mg/dL (NEGATIVE) 04/07/18 12:45 Urine Glucose (UA) NEGATIVE mg/dL (NEGATIVE) 04/07/18 12:45 Urine Ketones NEGATIVE mg/dL (NEGATIVE) 04/07/18 12:45 Urine Blood SMALL (NEGATIVE) H 04/07/18 12:45 Urine Nitrate NEGATIVE (NEGATIVE) 04/07/18 12:45 Urine Bilirubin NEGATIVE (NEGATIVE) 04/07/18 12:45 Urine Urobilinogen 0.2 E.U./dL (0.2 - 1.0) 04/07/18 12:45 Ur Leukocyte Esterase SMALL (NEGATIVE) H 04/07/18 12:45 Urine RBC 0-2 /hpf (0-5) 04/07/18 12:45 Urine WBC 6-10 /hpf (0-5) H 04/07/18 12:45 Ur Epithelial Cells FEW /lpf (FEW) 04/07/18 12:45 Urine Bacteria FEW /hpf (NONE SEEN) 04/07/18 12:45 Urine Mucus FEW /lpf (FEW) 04/07/18 12:45 - Physical Exam Vitals and I&O: Vital Signs Temp 98.8 F 04/09/18 16:00 Pulse 79 04/09/18 16:00 Resp 18 04/09/18 16:00 BP 165/89 04/09/18 16:00 Pulse Ox 97 09/15/18 16:00 Intake & Output 04/08/18 04/09/18 04/09/18 18:59 06:59 18:59 Intake Total 1280 100 Balance 1280 100 Weight (lbs) 46.266 kg 46.266 kg Intake: Intake, IV Amount 50 100 Piperacillin Sodium/ 50 100 Tazobact 3.375 gm In Sodium Chloride 0.9% 50 ml @ 100 mls/hr IV Q8HR [facility] Rx#:[id number] Oral 1230 Other: # Voids 4 # Bowel Movements 1 Weight Source Estimated Bedscale Active Medications: Current Medications Betamethasone/Clotrimazole (Lotrisone Cream) 1 appl TP Q12HR [facility] Stop: 06/07/18 20:59 Last Admin: 04/09/18 09:49 Dose: 1 appl Piperacillin Sod/Tazobactam (Sod 3.375 gm/ Sodium Chloride) 50 mls @ 100 mls/ hr IV Q8HR [facility] Stop: 06/06/18 20:59 Last Admin: 04/09/18 13:23 Dose: 100 mls/hr Losartan Potassium (Cozaar) 25 mg PO DAILY [facility] Stop: 06/08/18 09:14 Last Admin: 04/09/18 09:57 Dose: Not Given Mupirocin (Bactroban Oint) 1 appl NS BID [facility] Stop: 04/14/18 09:01 Last Admin: 04/09/18 17:55 Dose: 1 appl Phenazopyridine HCl (Pyridium) 200 mg PO BID [facility] Stop: 04/11/18 08:59 Last Admin: 04/09/18 17:55 Dose: 200 mg General: no acute distress, cachectic HEENT: atraumatic, normocephalic, PERRLA Neck: supple, no thyromegaly Cardiovascular: S1S2, regular Lungs: clear to auscultation bilaterally, clear to percussion Abdomen: soft, no tender, no distended, no mass, no hepatomegaly, no splenomegaly Extremities: no cyanosis, no clubbing, no edema Neurological: awake, alert, oriented Skin: intact - Procedures Procedures: Procedures Procedure Code Date BYPASS DESCENDING COLON TO CUTANEOUS, OPEN APPROACH [id number] 08/16/17 BYPASS SIGMOID COLON TO SIGMOID COLON, OPEN APPROACH [id number] 12/13/17 COLONOSCOPY AND BIOPSY 89748 08/16/17 EXCISION OF CECUM, ENDO, DIAGN [id number] 08/16/17 EXCISION OF DESCENDING COLON, OPEN APPROACH [id number] 12/13/17 EXCISION OF RECTUM, ENDO, DIAGN [id number] 08/16/17 EXCISION OF RECTUM, OPEN APPROACH [id number] 08/16/17 EXCISION OF SIGMOID COLON, OPEN APPROACH 4OPT3GZ 08/16/17 EXCISION OF TRANSVERSE COLON, ENDO, DIAGN [id number] 08/16/17 RELEASE SMALL INTESTINE, OPEN APPROACH [id number] 12/13/17 RELEASE STOMACH, OPEN APPROACH [id number] 08/16/17 REPAIR RECTUM, OPEN APPROACH [id number] 08/16/17 Infectious Disease Assmt/Plan - Assessment Assessment: 1. UTI. Patient ran neurogenic bladder versus urethral stenosis. 2. Hyponatremia. 3. Perineal infection - Plan Plan: continue Zosyn and lotrisone.
--- NOTE | 2018-04-09 23:07 | Progress Notes ---
DATE: 04/09/2018 SUBJECTIVE: The patient was seen in room. The patient denies any pain or discomfort at this time. According to nurses, the patient running high blood pressure ____ systolic 180s, but currently the patient does not have any blood pressure medication. Otherwise, the patient appears to be in no acute distress. OBJECTIVE: VITAL SIGNS: Temperature 97.8, heart rate of 83, blood pressure 186/74, respiration 18 and 96% on room air. HEENT: Head is atraumatic and normocephalic. Eyes: Bilateral conjunctivae are clear. Bilateral pupils are equally round and reactive. NECK: Supple. No JVD. CARDIOVASCULAR: S1 and S2, without murmur. PULMONARY: Clear to auscultation. GASTROINTESTINAL: Soft and nontender without guarding. Positive bowel sounds. MUSCULOSKELETAL: No clubbing. No cyanosis noted. ASSESSMENT: 1. Urinary tract infection. 2. Hypertension. 3. Colostomy. 4. History of rectal prolapse. PLAN: We will continue current antibiotics and we will wait for the culture results. We will follow up with the ID doctor. We will also put the patient on losartan once a day and also clonidine 0.1 mg as needed. Treatment plans were discussed with the patient's nurse. Treatment plans were discussed with Dr. Patino. JOB# [id number]
[2018-04-10] MEDS: Betamethasone/Clotrimazole Cream 15 gm Tube TP SCH ×2 (08:51→20:35)
--- NOTE | 2018-04-10 12:28 | General Progress Note ---
Subjective - Review of Systems Events since last encounter: awake alert denies pain Objective - Results Result Diagrams: 04/07/18 12:30 04/07/18 12:30 Recent Labs: Laboratory Last Values WBC 5.0 Th/cmm (4.8-10.8) 04/07/18 12:30 RBC 5.02 Mil/cmm (3.80-5.20) 04/07/18 12:30 Hgb 14.9 gm/dL (12-16) 04/07/18 12:30 Hct 45.0 % (41.0-60) 04/07/18 12:30 MCV 89.7 fl (81-100) 04/07/18 12:30 MCH 29.6 pg (27.0-31.0) 04/07/18 12:30 MCHC Differential 33.0 pg (28.0-36.0) 04/07/18 12:30 RDW 13.1 % (11.5-20.0) 04/07/18 12:30 Plt Count 261 Th/cmm (150-400) 04/07/18 12:30 MPV 8.3 fl 04/07/18 12:30 Neutrophils % 50.1 % (40.0-80.0) 04/07/18 12:30 Lymphocytes % 40.7 % (20.0-50.0) 04/07/18 12:30 Monocytes % 7.4 % (2.0-10.0) 04/07/18 12:30 Eosinophils % 1.3 % (0.0-5.0) 04/07/18 12:30 Basophils % 0.5 % (0.0-2.0) 04/07/18 12:30 Sodium 133 mEq/L (136-145) L 04/07/18 12:30 Potassium 4.1 mEq/L (3.5-5.1) 04/07/18 12:30 Chloride 99 mEq/L (98-107) 04/07/18 12:30 Carbon Dioxide 24.0 mEq/L (21.0-31.0) 04/07/18 12:30 Anion Gap 14.1 (7.0-16.0) 04/07/18 12:30 BUN 13 mg/dL (7-25) 04/07/18 12:30 Creatinine 0.9 mg/dL (0.6-1.2) 04/07/18 12:30 Est GFR ( Amer) TNP 04/07/18 12:30 Est GFR (Non-Af Amer) TNP 04/07/18 12:30 BUN/Creatinine Ratio 14.4 04/07/18 12:30 Glucose 93 mg/dL (70-105) 04/07/18 12:30 Calcium 9.6 mg/dL (8.6-10.3) 04/07/18 12:30 Urine Source CATH 04/07/18 12:45 Urine Color YELLOW 04/07/18 12:45 Urine Clarity CLEAR (CLEAR) 04/07/18 12:45 Urine pH 6.0 (4.6 - 8.0) 04/07/18 12:45 Ur Specific [place] 1.025 (1.005-1.030) 04/07/18 12:45 Urine Protein NEGATIVE mg/dL (NEGATIVE) 04/07/18 12:45 Urine Glucose (UA) NEGATIVE mg/dL (NEGATIVE) 04/07/18 12:45 Urine Ketones NEGATIVE mg/dL (NEGATIVE) 04/07/18 12:45 Urine Blood SMALL (NEGATIVE) H 04/07/18 12:45 Urine Nitrate NEGATIVE (NEGATIVE) 04/07/18 12:45 Urine Bilirubin NEGATIVE (NEGATIVE) 04/07/18 12:45 Urine Urobilinogen 0.2 E.U./dL (0.2 - 1.0) 04/07/18 12:45 Ur Leukocyte Esterase SMALL (NEGATIVE) H 04/07/18 12:45 Urine RBC 0-2 /hpf (0-5) 04/07/18 12:45 Urine WBC 6-10 /hpf (0-5) H 04/07/18 12:45 Ur Epithelial Cells FEW /lpf (FEW) 04/07/18 12:45 Urine Bacteria FEW /hpf (NONE SEEN) 04/07/18 12:45 Urine Mucus FEW /lpf (FEW) 04/07/18 12:45 - Physical Exam Vitals and I&O: Vital Signs Temp 97.0 F 04/10/18 08:00 Pulse 68 04/10/18 10:00 Resp 18 04/10/18 08:00 BP 162/75 04/10/18 10:00 Pulse Ox 98 04/10/18 08:00 Intake & Output 04/09/18 04/10/18 04/10/18 18:59 06:59 18:59 Intake Total 550 50 Balance 550 50 Weight (lbs) 46.266 kg Intake: Intake, IV Amount 50 50 Piperacillin Sodium/ 50 50 Tazobact 3.375 gm In Sodium Chloride 0.9% 50 ml @ 100 mls/hr IV Q8HR [facility] Rx#:[id number] Oral 500 Other: # Voids 3 # Bowel Movements 2 Stool Characteristics Soft Formed Weight Source Bedscale Active Medications: Current Medications Betamethasone/Clotrimazole (Lotrisone Cream) 1 appl TP Q12HR [facility] Stop: 06/07/18 20:59 Last Admin: 04/10/18 08:51 Dose: 1 appl Piperacillin Sod/Tazobactam (Sod 3.375 gm/ Sodium Chloride) 50 mls @ 100 mls/ hr IV Q8HR [facility] Stop: 06/06/18 20:59 Last Admin: 04/10/18 04:25 Dose: 100 mls/hr Losartan Potassium (Cozaar) 25 mg PO DAILY [facility] Stop: 06/08/18 09:14 Last Admin: 04/10/18 08:50 Dose: 25 mg Mupirocin (Bactroban Oint) 1 appl NS BID [facility] Stop: 04/14/18 09:01 Last Admin: 04/10/18 08:51 Dose: 1 appl Phenazopyridine HCl (Pyridium) 200 mg PO BID [facility] Stop: 04/11/18 08:59 Last Admin: 04/10/18 08:51 Dose: Not Given - Procedures Procedures: Procedures Procedure Code Date BYPASS DESCENDING COLON TO CUTANEOUS, OPEN APPROACH [id number] 08/16/17 BYPASS SIGMOID COLON TO SIGMOID COLON, OPEN APPROACH [id number] 12/13/17 COLONOSCOPY AND BIOPSY 88013 08/16/17 EXCISION OF CECUM, ENDO, DIAGN [id number] 08/16/17 EXCISION OF DESCENDING COLON, OPEN APPROACH [id number] 12/13/17 EXCISION OF RECTUM, ENDO, DIAGN [id number] 08/16/17 EXCISION OF RECTUM, OPEN APPROACH [id number] 08/16/17 EXCISION OF SIGMOID COLON, OPEN APPROACH [id number] 08/16/17 EXCISION OF TRANSVERSE COLON, ENDO, DIAGN [id number] 08/16/17 RELEASE SMALL INTESTINE, OPEN APPROACH [id number] 12/13/17 RELEASE STOMACH, OPEN APPROACH [id number] 08/16/17 REPAIR RECTUM, OPEN APPROACH [id number] 08/16/17
--- NOTE | 2018-04-10 19:40 | Infectious Disease Prog Note ---
Infectious Disease Subjective - Review of Systems Service Date: 04/10/18 Subjective: There is no new change, denies any dysuria. Infectious Disease Objective - Results Result Diagrams: 04/07/18 12:30 04/07/18 12:30 Recent Labs: Laboratory Last Values WBC 5.0 Th/cmm (4.8-10.8) 04/07/18 12:30 RBC 5.02 Mil/cmm (3.80-5.20) 04/07/18 12:30 Hgb 14.9 gm/dL (12-16) 04/07/18 12:30 Hct 45.0 % (41.0-60) 04/07/18 12:30 MCV 89.7 fl (81-100) 04/07/18 12:30 MCH 29.6 pg (27.0-31.0) 04/07/18 12:30 MCHC Differential 33.0 pg (28.0-36.0) 04/07/18 12:30 RDW 13.1 % (11.5-20.0) 04/07/18 12:30 Plt Count 261 Th/cmm (150-400) 04/07/18 12:30 MPV 8.3 fl 04/07/18 12:30 Neutrophils % 50.1 % (40.0-80.0) 04/07/18 12:30 Lymphocytes % 40.7 % (20.0-50.0) 04/07/18 12:30 Monocytes % 7.4 % (2.0-10.0) 04/07/18 12:30 Eosinophils % 1.3 % (0.0-5.0) 04/07/18 12:30 Basophils % 0.5 % (0.0-2.0) 04/07/18 12:30 Sodium 133 mEq/L (136-145) L 04/07/18 12:30 Potassium 4.1 mEq/L (3.5-5.1) 04/07/18 12:30 Chloride 99 mEq/L (98-107) 04/07/18 12:30 Carbon Dioxide 24.0 mEq/L (21.0-31.0) 04/07/18 12:30 Anion Gap 14.1 (7.0-16.0) 04/07/18 12:30 BUN 13 mg/dL (7-25) 04/07/18 12:30 Creatinine 0.9 mg/dL (0.6-1.2) 04/07/18 12:30 Est GFR ( Amer) TNP 04/07/18 12:30 Est GFR (Non-Af Amer) TNP 04/07/18 12:30 BUN/Creatinine Ratio 14.4 04/07/18 12:30 Glucose 93 mg/dL (70-105) 04/07/18 12:30 Calcium 9.6 mg/dL (8.6-10.3) 04/07/18 12:30 Urine Source CATH 04/07/18 12:45 Urine Color YELLOW 04/07/18 12:45 Urine Clarity CLEAR (CLEAR) 04/07/18 12:45 Urine pH 6.0 (4.6 - 8.0) 04/07/18 12:45 Ur Specific [place] 1.025 (1.005-1.030) 04/07/18 12:45 Urine Protein NEGATIVE mg/dL (NEGATIVE) 04/07/18 12:45 Urine Glucose (UA) NEGATIVE mg/dL (NEGATIVE) 04/07/18 12:45 Urine Ketones NEGATIVE mg/dL (NEGATIVE) 04/07/18 12:45 Urine Blood SMALL (NEGATIVE) H 04/07/18 12:45 Urine Nitrate NEGATIVE (NEGATIVE) 04/07/18 12:45 Urine Bilirubin NEGATIVE (NEGATIVE) 04/07/18 12:45 Urine Urobilinogen 0.2 E.U./dL (0.2 - 1.0) 04/07/18 12:45 Ur Leukocyte Esterase SMALL (NEGATIVE) H 04/07/18 12:45 Urine RBC 0-2 /hpf (0-5) 04/07/18 12:45 Urine WBC 6-10 /hpf (0-5) H 04/07/18 12:45 Ur Epithelial Cells FEW /lpf (FEW) 04/07/18 12:45 Urine Bacteria FEW /hpf (NONE SEEN) 04/07/18 12:45 Urine Mucus FEW /lpf (FEW) 04/07/18 12:45 - Physical Exam Vitals and I&O: Vital Signs Temp 97.2 F 04/10/18 16:00 Pulse 84 04/10/18 16:00 Resp 17 04/10/18 16:00 BP 142/80 04/10/18 16:00 Pulse Ox 98 09/16/18 16:00 Intake & Output 04/10/18 04/10/18 04/11/18 06:59 18:59 06:59 Intake Total 100 750 Balance 100 750 Weight (lbs) 46.266 kg Intake: Intake, IV Amount 100 Piperacillin Sodium/ 100 Tazobact 3.375 gm In Sodium Chloride 0.9% 50 ml @ 100 mls/hr IV Q8HR [facility] Rx#:[id number] Oral 750 Other: # Voids 4 # Bowel Movements 2 Stool Characteristics Soft Formed Weight Source Bedscale Active Medications: Current Medications Betamethasone/Clotrimazole (Lotrisone Cream) 1 appl TP Q12HR [facility] Stop: 06/07/18 20:59 Last Admin: 04/10/18 08:51 Dose: 1 appl Piperacillin Sod/Tazobactam (Sod 3.375 gm/ Sodium Chloride) 50 mls @ 100 mls/ hr IV Q8HR [facility] Stop: 06/06/18 20:59 Last Admin: 04/10/18 12:41 Dose: 100 mls/hr Losartan Potassium (Cozaar) 25 mg PO DAILY [facility] Stop: 06/08/18 09:14 Last Admin: 04/10/18 08:50 Dose: 25 mg Mupirocin (Bactroban Oint) 1 appl NS BID [facility] Stop: 04/14/18 09:01 Last Admin: 04/10/18 17:15 Dose: 1 appl Phenazopyridine HCl (Pyridium) 200 mg PO BID [facility] Stop: 04/11/18 08:59 Last Admin: 04/10/18 17:39 Dose: Not Given General: no acute distress, well developed, well nourished HEENT: atraumatic, normocephalic, PERRLA Neck: supple, no thyromegaly, no lymphadenopathy Cardiovascular: S1S2, regular Lungs: clear to auscultation bilaterally, clear to percussion Abdomen: soft, no tender, no distended Extremities: no cyanosis, no clubbing Neurological: awake, alert, oriented Skin: intact - Procedures Procedures: Procedures Procedure Code Date BYPASS DESCENDING COLON TO CUTANEOUS, OPEN APPROACH [id number] 08/16/17 BYPASS SIGMOID COLON TO SIGMOID COLON, OPEN APPROACH [id number] 12/13/17 COLONOSCOPY AND BIOPSY 66016 08/16/17 EXCISION OF CECUM, ENDO, DIAGN [id number] 08/16/17 EXCISION OF DESCENDING COLON, OPEN APPROACH [id number] 12/13/17 EXCISION OF RECTUM, ENDO, DIAGN [id number] 08/16/17 EXCISION OF RECTUM, OPEN APPROACH [id number] 08/16/17 EXCISION OF SIGMOID COLON, OPEN APPROACH [id number] 08/16/17 EXCISION OF TRANSVERSE COLON, ENDO, DIAGN [id number] 08/16/17 RELEASE SMALL INTESTINE, OPEN APPROACH [id number] 12/13/17 RELEASE STOMACH, OPEN APPROACH [id number] 08/16/17 REPAIR RECTUM, OPEN APPROACH [id number] 08/16/17 Infectious Disease Assmt/Plan - Assessment Assessment: 1. UTI. Patient ran neurogenic bladder versus urethral stenosis. 2. Hyponatremia. 3. Perineal infection. 4. MRSA colonization. - Plan Plan: continue Zosyn and lotrisone. bactroban nasal.
[2018-04-11] MEDS: Betamethasone/Clotrimazole Cream 15 gm Tube TP SCH (08:28)
[2018-04-11] MEDS ORDERED: Probiotic Screen MC PRN (12:41)
--- NOTE | 2018-04-11 13:34 | Infectious Disease Prog Note ---
Infectious Disease Subjective - Review of Systems Service Date: 04/11/18 Subjective: There is no new change, denies any dysuria. Infectious Disease Objective - Results Result Diagrams: 04/07/18 12:30 04/07/18 12:30 Recent Labs: Laboratory Last Values WBC 5.0 Th/cmm (4.8-10.8) 04/07/18 12:30 RBC 5.02 Mil/cmm (3.80-5.20) 04/07/18 12:30 Hgb 14.9 gm/dL (12-16) 04/07/18 12:30 Hct 45.0 % (41.0-60) 04/07/18 12:30 MCV 89.7 fl (81-100) 04/07/18 12:30 MCH 29.6 pg (27.0-31.0) 04/07/18 12:30 MCHC Differential 33.0 pg (28.0-36.0) 04/07/18 12:30 RDW 13.1 % (11.5-20.0) 04/07/18 12:30 Plt Count 261 Th/cmm (150-400) 04/07/18 12:30 MPV 8.3 fl 04/07/18 12:30 Neutrophils % 50.1 % (40.0-80.0) 04/07/18 12:30 Lymphocytes % 40.7 % (20.0-50.0) 04/07/18 12:30 Monocytes % 7.4 % (2.0-10.0) 04/07/18 12:30 Eosinophils % 1.3 % (0.0-5.0) 04/07/18 12:30 Basophils % 0.5 % (0.0-2.0) 04/07/18 12:30 Sodium 133 mEq/L (136-145) L 04/07/18 12:30 Potassium 4.1 mEq/L (3.5-5.1) 04/07/18 12:30 Chloride 99 mEq/L (98-107) 04/07/18 12:30 Carbon Dioxide 24.0 mEq/L (21.0-31.0) 04/07/18 12:30 Anion Gap 14.1 (7.0-16.0) 04/07/18 12:30 BUN 13 mg/dL (7-25) 04/07/18 12:30 Creatinine 0.9 mg/dL (0.6-1.2) 04/07/18 12:30 Est GFR ( Amer) TNP 04/07/18 12:30 Est GFR (Non-Af Amer) TNP 04/07/18 12:30 BUN/Creatinine Ratio 14.4 04/07/18 12:30 Glucose 93 mg/dL (70-105) 04/07/18 12:30 Calcium 9.6 mg/dL (8.6-10.3) 04/07/18 12:30 Urine Source CATH 04/07/18 12:45 Urine Color YELLOW 04/07/18 12:45 Urine Clarity CLEAR (CLEAR) 04/07/18 12:45 Urine pH 6.0 (4.6 - 8.0) 04/07/18 12:45 Ur Specific [place] 1.025 (1.005-1.030) 04/07/18 12:45 Urine Protein NEGATIVE mg/dL (NEGATIVE) 04/07/18 12:45 Urine Glucose (UA) NEGATIVE mg/dL (NEGATIVE) 04/07/18 12:45 Urine Ketones NEGATIVE mg/dL (NEGATIVE) 04/07/18 12:45 Urine Blood SMALL (NEGATIVE) H 04/07/18 12:45 Urine Nitrate NEGATIVE (NEGATIVE) 04/07/18 12:45 Urine Bilirubin NEGATIVE (NEGATIVE) 04/07/18 12:45 Urine Urobilinogen 0.2 E.U./dL (0.2 - 1.0) 04/07/18 12:45 Ur Leukocyte Esterase SMALL (NEGATIVE) H 04/07/18 12:45 Urine RBC 0-2 /hpf (0-5) 04/07/18 12:45 Urine WBC 6-10 /hpf (0-5) H 04/07/18 12:45 Ur Epithelial Cells FEW /lpf (FEW) 04/07/18 12:45 Urine Bacteria FEW /hpf (NONE SEEN) 04/07/18 12:45 Urine Mucus FEW /lpf (FEW) 04/07/18 12:45 - Physical Exam Vitals and I&O: Vital Signs Temp 98.4 F 04/11/18 00:00 Pulse 82 04/11/18 10:48 Resp 17 04/11/18 09:50 BP 168/75 04/11/18 08:19 Pulse Ox 97 09/17/18 00:00 Intake & Output 04/10/18 04/11/18 04/11/18 18:59 06:59 18:59 Intake Total 800 50 Balance 800 50 Weight (lbs) 46.266 kg Intake: Intake, IV Amount 50 50 Piperacillin Sodium/ 50 50 Tazobact 3.375 gm In Sodium Chloride 0.9% 50 ml @ 100 mls/hr IV Q8HR [facility] Rx#:[id number] Oral 750 Other: # Voids 4 # Bowel Movements 2 Stool Characteristics Soft Formed Weight Source Bedscale Active Medications: Current Medications Betamethasone/Clotrimazole (Lotrisone Cream) 1 appl TP Q12HR [facility] Stop: 06/07/18 20:59 Last Admin: 04/11/18 08:28 Dose: 1 appl Piperacillin Sod/Tazobactam (Sod 3.375 gm/ Sodium Chloride) 50 mls @ 100 mls/ hr IV Q8HR [facility] Stop: 06/06/18 20:59 Last Admin: 04/11/18 04:56 Dose: 100 mls/hr Lactobacillus Rhamnosus (Culturelle 15b) 1 each PO DAILY [facility] Stop: 06/10/18 13:59 Losartan Potassium (Cozaar) 25 mg PO DAILY [facility] Stop: 06/08/18 09:14 Last Admin: 04/11/18 08:19 Dose: 25 mg Miscellaneous (Probiotic Screen) 1 ea MC PRN PRN PRN Reason: PROTOCOL Stop: 06/10/18 12:40 Mupirocin (Bactroban Oint) 1 appl NS BID [facility] Stop: 04/14/18 09:01 Last Admin: 04/11/18 08:25 Dose: 1 appl General: no acute distress, well developed, well nourished HEENT: atraumatic, normocephalic, PERRLA Neck: supple Cardiovascular: S1S2, regular Lungs: clear to auscultation bilaterally, clear to percussion Abdomen: soft, bowel sounds, no tender, no distended Extremities: no cyanosis, no clubbing, no edema Neurological: awake, alert, oriented Skin: intact - Procedures Procedures: Procedures Procedure Code Date BYPASS DESCENDING COLON TO CUTANEOUS, OPEN APPROACH [id number] 08/16/17 BYPASS SIGMOID COLON TO SIGMOID COLON, OPEN APPROACH [id number] 12/13/17 COLONOSCOPY AND BIOPSY 76910 08/16/17 EXCISION OF CECUM, ENDO, DIAGN [id number] 08/16/17 EXCISION OF DESCENDING COLON, OPEN APPROACH [id number] 12/13/17 EXCISION OF RECTUM, ENDO, DIAGN [id number] 08/16/17 EXCISION OF RECTUM, OPEN APPROACH [id number] 08/16/17 EXCISION OF SIGMOID COLON, OPEN APPROACH [id number] 08/16/17 EXCISION OF TRANSVERSE COLON, ENDO, DIAGN [id number] 08/16/17 RELEASE SMALL INTESTINE, OPEN APPROACH [id number] 12/13/17 RELEASE STOMACH, OPEN APPROACH [id number] 08/16/17 REPAIR RECTUM, OPEN APPROACH [id number] 08/16/17 Infectious Disease Assmt/Plan - Assessment Assessment: 1. UTI. Patient ran neurogenic bladder versus urethral stenosis. 2. Hyponatremia. 3. Perineal infection. 4. MRSA colonization. - Plan Plan: continue Zosyn and lotrisone. bactroban nasal.
[2018-04-11] MEDS ORDERED: Lactobacillus Rhamnosus GG 15 Billion CFU CAP.SPRINK PO SCH (14:00)
--- NOTE | 2018-04-11 16:05 | General Progress Note ---
Subjective - Review of Systems Events since last encounter: in no distress awake alert Objective - Results Result Diagrams: 04/07/18 12:30 04/07/18 12:30 Recent Labs: Laboratory Last Values WBC 5.0 Th/cmm (4.8-10.8) 04/07/18 12:30 RBC 5.02 Mil/cmm (3.80-5.20) 04/07/18 12:30 Hgb 14.9 gm/dL (12-16) 04/07/18 12:30 Hct 45.0 % (41.0-60) 04/07/18 12:30 MCV 89.7 fl (81-100) 04/07/18 12:30 MCH 29.6 pg (27.0-31.0) 04/07/18 12:30 MCHC Differential 33.0 pg (28.0-36.0) 04/07/18 12:30 RDW 13.1 % (11.5-20.0) 04/07/18 12:30 Plt Count 261 Th/cmm (150-400) 04/07/18 12:30 MPV 8.3 fl 04/07/18 12:30 Neutrophils % 50.1 % (40.0-80.0) 04/07/18 12:30 Lymphocytes % 40.7 % (20.0-50.0) 04/07/18 12:30 Monocytes % 7.4 % (2.0-10.0) 04/07/18 12:30 Eosinophils % 1.3 % (0.0-5.0) 04/07/18 12:30 Basophils % 0.5 % (0.0-2.0) 04/07/18 12:30 Sodium 133 mEq/L (136-145) L 04/07/18 12:30 Potassium 4.1 mEq/L (3.5-5.1) 04/07/18 12:30 Chloride 99 mEq/L (98-107) 04/07/18 12:30 Carbon Dioxide 24.0 mEq/L (21.0-31.0) 04/07/18 12:30 Anion Gap 14.1 (7.0-16.0) 04/07/18 12:30 BUN 13 mg/dL (7-25) 04/07/18 12:30 Creatinine 0.9 mg/dL (0.6-1.2) 04/07/18 12:30 Est GFR ( Amer) TNP 04/07/18 12:30 Est GFR (Non-Af Amer) TNP 04/07/18 12:30 BUN/Creatinine Ratio 14.4 04/07/18 12:30 Glucose 93 mg/dL (70-105) 04/07/18 12:30 Calcium 9.6 mg/dL (8.6-10.3) 04/07/18 12:30 Urine Source CATH 04/07/18 12:45 Urine Color YELLOW 04/07/18 12:45 Urine Clarity CLEAR (CLEAR) 04/07/18 12:45 Urine pH 6.0 (4.6 - 8.0) 04/07/18 12:45 Ur Specific [place] 1.025 (1.005-1.030) 04/07/18 12:45 Urine Protein NEGATIVE mg/dL (NEGATIVE) 04/07/18 12:45 Urine Glucose (UA) NEGATIVE mg/dL (NEGATIVE) 04/07/18 12:45 Urine Ketones NEGATIVE mg/dL (NEGATIVE) 04/07/18 12:45 Urine Blood SMALL (NEGATIVE) H 04/07/18 12:45 Urine Nitrate NEGATIVE (NEGATIVE) 04/07/18 12:45 Urine Bilirubin NEGATIVE (NEGATIVE) 04/07/18 12:45 Urine Urobilinogen 0.2 E.U./dL (0.2 - 1.0) 04/07/18 12:45 Ur Leukocyte Esterase SMALL (NEGATIVE) H 04/07/18 12:45 Urine RBC 0-2 /hpf (0-5) 04/07/18 12:45 Urine WBC 6-10 /hpf (0-5) H 04/07/18 12:45 Ur Epithelial Cells FEW /lpf (FEW) 04/07/18 12:45 Urine Bacteria FEW /hpf (NONE SEEN) 04/07/18 12:45 Urine Mucus FEW /lpf (FEW) 04/07/18 12:45 - Physical Exam Vitals and I&O: Vital Signs Temp 98.3 F 04/11/18 15:32 Pulse 76 04/11/18 15:32 Resp 18 04/11/18 15:32 BP 156/81 04/11/18 15:32 Pulse Ox 98 04/11/18 15:32 Intake & Output 04/10/18 04/11/18 04/11/18 18:59 06:59 18:59 Intake Total 800 100 Balance 800 100 Weight (lbs) 46.266 kg Intake: Intake, IV Amount 50 100 Piperacillin Sodium/ 50 100 Tazobact 3.375 gm In Sodium Chloride 0.9% 50 ml @ 100 mls/hr IV Q8HR [facility] Rx#:[id number] Oral 750 Other: # Voids 4 # Bowel Movements 2 Stool Characteristics Soft Formed Weight Source Bedscale Active Medications: Current Medications Betamethasone/Clotrimazole (Lotrisone Cream) 1 appl TP Q12HR [facility] Stop: 06/07/18 20:59 Last Admin: 04/11/18 08:28 Dose: 1 appl Piperacillin Sod/Tazobactam (Sod 3.375 gm/ Sodium Chloride) 50 mls @ 100 mls/ hr IV Q8HR [facility] Stop: 06/06/18 20:59 Last Admin: 04/11/18 14:30 Dose: 100 mls/hr Lactobacillus Rhamnosus (Culturelle 15b) 1 each PO DAILY GALEN Stop: 06/10/18 13:59 Last Admin: 04/11/18 14:32 Dose: 1 each Losartan Potassium (Cozaar) 25 mg PO DAILY GALEN Stop: 06/08/18 09:14 Last Admin: 04/11/18 08:19 Dose: 25 mg Miscellaneous (Probiotic Screen) 1 ea MC PRN PRN PRN Reason: PROTOCOL Stop: 06/10/18 12:40 Mupirocin (Bactroban Oint) 1 appl NS BID [facility]EN Stop: 04/14/18 09:01 Last Admin: 04/11/18 08:25 Dose: 1 appl - Procedures Procedures: Procedures Procedure Code Date BYPASS DESCENDING COLON TO CUTANEOUS, OPEN APPROACH [id number] 08/16/17 BYPASS SIGMOID COLON TO SIGMOID COLON, OPEN APPROACH [id number] 12/13/17 COLONOSCOPY AND BIOPSY 19092 08/16/17 EXCISION OF CECUM, ENDO, DIAGN [id number] 08/16/17 EXCISION OF DESCENDING COLON, OPEN APPROACH [id number] 12/13/17 EXCISION OF RECTUM, ENDO, DIAGN [id number] 08/16/17 EXCISION OF RECTUM, OPEN APPROACH [id number] 08/16/17 EXCISION OF SIGMOID COLON, OPEN APPROACH [id number] 08/16/17 EXCISION OF TRANSVERSE COLON, ENDO, DIAGN [id number] 08/16/17 RELEASE SMALL INTESTINE, OPEN APPROACH [id number] 12/13/17 RELEASE STOMACH, OPEN APPROACH [id number] 08/16/17 REPAIR RECTUM, OPEN APPROACH [id number] 08/16/17
--- NOTE | 2018-04-18 17:27 | Discharge Summary ---
DATE OF DISCHARGE: 04/11/2018 The patient was admitted to [facility] on 04/07/2018. The patient was discharged to [facility] on 04/11/2018. This patient is well known to me, elderly 87-year-old female patient with history of previous rectal prolapse, had a colostomy and later on reversal of colostomy and repair of prolapse. The patient has recurrent history of infection. The patient was recently seen at [facility], where he underwent oral antibiotic therapy. He was admitted for urinary infection, perineal infection, rule out sepsis, history of rectal prolapse in the past and bilateral hip replacement. The patient was given Zosyn, IV antibiotics. ID doctor saw the patient and patient need to have IV antibiotics for another 7-10 days. The patient will be transferred to [facility], where I will be following the patient. CONDITION ON DISCHARGE: Stable. MEDICATIONS: See the reconciliation sheet. JOB# [id number]
== END 2018-04-11 18:45 | DRG 690 ==
LOC: ER 11:37 → MSI 18:00
PROVIDERS: ADMIT Internal Medicine; ATTEND Internal Medicine
DX: N39.0 Urinary tract infection, site not specified (principal); E87.1 Hypo-osmolality and hyponatremia; J44.9 Chronic obstructive pulmonary disease, unspecified; N31.9 Neuromuscular dysfunction of bladder, unspecified; N73.9 Female pelvic inflammatory disease, unspecified; Z96.643 Presence of artificial hip joint, bilateral; Z93.3 Colostomy status; Z22.322 Carrier or suspected carrier of Methicillin resistant Staphylococcus aureus; Z79.899 Other long term (current) drug therapy
CPT/HCPCS: 36415-UA; 71045-TC; 80048-TC; 81001-TC; 85025-TC; 87086-90; 93005; 97530; J0696; J2543; X3904; Z7610